=== PATIENT | male | born 1930 | race Caucasian/White ===

== ENCOUNTER 2017-01-07 19:08 | Inpatient (IN) | payer OTHER, BC ==
[~2017-01-07] VITALS: Ht 172.7 cm; Wt 89.1 kg
[~2017-01-07 19:08] MED LIST: ACET-1256 PO; ASPI81TA28 PO; BMX1 PO; CMD3 PO; LNX125 PO; LPR100 PO; MCRK20 PO; MULT1CHW42 PO; POLY335025 PO; PRLSR20 PO; SPR25 PO; SYN200 PO; SYN50 PO; TERA1CAP63 PO; TRAM-10 PO; VERA120T65 PO
[2017-01-07] MEDS ORDERED: SODIUM CHLORIDE 0.9% 1000ML 1,000 ML IV STA ×3 (19:32→21:02)
[2017-01-07] MEDS ORDERED: METOPROLOL TARTRATE 1 MG/ML VIAL IV STA ×3 (19:32→21:02)
--- NOTE | 2017-01-07 19:57 | DIAGNOSTIC IMAGING REPORT ---
PELVIS ONE VIEW HISTORY: Pelvic pain. fall COMPARISON: Left hip 06/17/2015. FINDINGS: The bones are osteopenic. No acute fractures identified within the pelvis or hips. There are bilateral total hip arthroplasties and multiple surgical clips within the pelvis. There is heterotopic ossification surrounding the bilateral hips. No change in the fractured left acetabular screws. There is progressive superior subluxation of the left acetabular cup which appears to be chronic. No dislocation of the femoral prosthesis. The sacrum appears intact. IMPRESSION: 1. No acute fractures within the pelvis or hips. 2. Bilateral total hip arthroplasties. Fracture of the left acetabular cup screws is again noted. There is mild progression of the superior subluxation of the left acetabular cup which is likely chronic. Electronically signed by: Andrew Bauer M.D. 01/07/2017 7:55 PM Dictated Date/Time: 01/07/2017 7:53 PM
--- NOTE | 2017-01-07 19:59 | DIAGNOSTIC IMAGING REPORT ---
CHEST ONE VIEW PORTABLE HISTORY: EVALUATE FOR TRAUMA/INJURY COMPARISON: Chest 08/12/2016. FINDINGS: The cardiac silhouette remains mildly enlarged. No pleural effusions. No pneumothorax. There is new hazy opacity within the right lower lung zone. The left lung remains clear. No acute rib fractures identified. IMPRESSION: 1. A new hazy opacity within the right lower lung zone. This is nonspecific but could be due to a developing pneumonia, possibly due to aspiration. One month chest x-ray follow-up is recommended to ensure resolution 2. Cardiomegaly, unchanged. 3. No pneumothorax. Electronically signed by: Andrew Bauer M.D. 01/07/2017 7:58 PM Dictated Date/Time: 01/07/2017 7:55 PM
[2017-01-07 20:05] LABS: HEMATOCRIT 36.5 % (42-52); MEAN CELL VOLUME 79.7 fL (80-100); MEAN CORPUSCULAR HEMOGLOBIN 25.3 pg (25-34); MEAN CORPUSCULAR HGB CONC 31.8 g/dl (32-36); MEAN PLATELET VOLUME 10.1 fL (7.4-10.4); PLATELET COUNT 128 K/uL (130-400); RED BLOOD COUNT 4.58 M/uL (4.7-6.1); WHITE BLOOD COUNT 13.26 K/uL (4.8-10.8)
[2017-01-07 20:19] LABS: PARTIAL THROMBOPLASTIN RATIO 1.5; PROTHROMBIN TIME (PATIENT) 22.6 SECONDS (9.0-12.0)
[2017-01-07 20:26] LABS: BUN/CREATININE RATIO 21.5 (10-20); CALCIUM 9.1 mg/dl (8.5-10.1); CREATININE 1.6 mg/dl (0.60-1.40); POTASSIUM 4.3 mmol/L (3.5-5.1)
[2017-01-07 20:41] LABS: BASO % 0.3 %; BASO ABS # 0.04 K/uL (0-0.2); COMPLETE YES; ECHINOCYTES 1+; EOS % 0.3 %; HYPOCHROMIA PRESENT; IG% 0.4 %; LYMPH % 11.8 %; LYMPH ABS # 1.57 K/uL (1.2-3.4); MONO % 3.5 %; NEUT % 83.7 %; OVALOCYTES 1+; POLYCHROMASIA 1+
--- NOTE | 2017-01-07 20:44 | DIAGNOSTIC IMAGING REPORT ---
HEAD CT NONCONTRAST CT DOSE: HISTORY: EVALUATE FOR TRAUMA/INJURY TECHNIQUE: Multiaxial CT images of the head were performed without the use of intravenous contrast. Automated exposure control was utilized for this study. Comparison: None. Findings: Mild mucosal thickening within the maxillary sinuses and ethmoid air cells. The mastoid air cells are clear. The calvarium and skull base are intact. The ventricles and sulci are within normal limits. There is no hematoma, midline shift, or acute infarct. There is a 5 mm slightly hyperdense nodule within the extra-axial space of the left frontal lobe on image 14. There is also a 6 mm nodular focus at the expected location of the left MCA bifurcation. Impression: 1. No definite acute intracranial abnormality. 2. A 5 mm slightly hyperdense nodular focus within the extra-axial space in the left frontal lobe. This favors a small meningioma. However, recommend 24-hour head CT follow-up in the setting of trauma to exclude the less likely possibility of a small contusion. 3. There is also a 6 mm nodular density in the expected location of the left MCA bifurcation. This could be due to volume averaging or an incidental aneurysm. Follow-up nonemergent brain MRA can be used for further evaluation. Electronically signed by: Andrew Bauer M.D. 01/07/2017 8:43 PM Dictated Date/Time: 01/07/2017 8:35 PM
[2017-01-07] MEDS ORDERED: PIPERACILLIN/TAZOBACTAM 4.5 GM/100ML D5W IV STA (20:55)
--- NOTE | 2017-01-07 20:58 | DIAGNOSTIC IMAGING REPORT ---
CERVICAL SPINE CT CT DOSE: 1048.17 mGy.cm HISTORY: EVALUATE FOR TRAUMA/INJURY TECHNIQUE: Multiaxial CT images of the cervical spine were performed and reformatted in the sagittal and coronal plane without the use of contrast. COMPARISON: None. FINDINGS: The right-sided pleural effusion. No pneumothorax. There is 4 mm of anterolisthesis of C4 and C5. Prevertebral soft tissues are intact. No acute fractures identified. Mild to moderate central canal narrowing at the C4-C5 level. Severe disc space narrowing at C4-C5, C5-C6. Moderate to space narrowing at C3-C4 and C6-C7. Fusion of the C7-T1 vertebral bodies. Bilateral C3-C4 diffuse facets. The C1-C2 interval is intact. Levoscoliosis. IMPRESSION: 1. No acute fractures within the cervical spine. 2. Approximately 4 mm of anterolisthesis of C4 and C5. This favors long-standing degenerative change. 3. Right pleural effusion. 4. Levoscoliosis. Electronically signed by: Andrew Bauer M.D. 01/07/2017 8:57 PM Dictated Date/Time: 01/07/2017 8:51 PM
[2017-01-07] MEDS ORDERED: LNX125 (21:02)
[2017-01-07] MEDS ORDERED: WARF3TAB6 PO ×2 (21:02)
[2017-01-07] MEDS ORDERED: METOPROLOL TARTRATE 100 MG TAB PO STA (21:13)
[2017-01-07 21:45] LABS: CKMB/CK RATIO 3.5 (0-3.0); MAGNESIUM 2.3 mg/dl (1.8-2.4); THYROID STIMULATING HORMONE 1.49 uIu/ml (0.300-4.500)
[2017-01-07] MEDS ORDERED: LNX125 PO (22:01)
[2017-01-07] MEDS ORDERED: ACETAMINOPHEN 325 MG TAB PO PRN (22:15)
[2017-01-07] MEDS ORDERED: NITROGLYCERIN 0.4 MG SL PER TAB CHARGE SL PRN (22:15)
[2017-01-07] MEDS ORDERED: ONDANSETRON INJ 2 MG/ML 2 ML VIAL IV PRN (22:15)
[2017-01-07] MEDS ORDERED: METOPROLOL TARTRATE 1 MG/ML VIAL IV PRN (22:30)
[2017-01-07] MEDS ORDERED: POLYETHYLENE (MIRALAX) 17 GM PACK PO PRN ×2 (22:30→22:45)
--- NOTE | 2017-01-07 22:39 | History and Physical ---
History & Physical Date & Time of Service: Jan 07, 2017 at 22:06 Chief Complaint: Fall/Hip Pain Primary Care Physician: Frantz Richard M.D. History of Present Illness Source: patient, clinic records, hospital records Patient seen and examined. 86 year old male with PMHx of Afib on Coumadin, CKD stage 3, HTN, Diastolic CHF, hypothyroidism and other problems listed below presents to the ED following a fall. Patient reports that he fell last night. He states that he has had some chronic dizziness that he was told was secondary to some of his medications and that he is very careful not to fall. He reports last night he fell backwards and hit his head. He denies LOC but states he was unable to get up and laid on the floor all night until friends came to check on him today. He reports otherwise he has been feeling fairly well. He states he has had a cough and congestion for many years which is unchanged. He states he occasionally has chest pain but nothing significant recently. He denies palpitations and states he can never feel when he goes into rapid Afib. He denies fevers, chills, URI symptoms, chest pain, SOB, nausea, vomiting, diarrhea , dysuria, calf pain and edema. He reports he has not taken his medications today because he couldn't get to them after the fall. He states he's not sure if he took them yesterday. In the ED patient was in Afib with RVR, CT head showed meningioma, WBC count was elevated at 13K, CXR showed possible RLL pneumonia. Patient received 15mg total of IV Lopressor and then 100mg po. He received IVFs, and Zosyn. He will be admitted for further workup and treatment. 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 Status: Resolved (9) Status post cancer Status: Resolved Surgical Problems: (1) H/O hernia repair Status: Chronic (2) H/O thyroidectomy Status: Chronic (3) History of esophagogastroduodenoscopy (EGD) Permanent Comment: 01/17/2015 - ring @ GE junction, tortuous esophagus, HH, multiple gastric polyps Status: Chronic (4) History of left hip replacement Status: Chronic (5) History of right hip replacement Status: Chronic (6) History of thyroidectomy Status: Resolved (7) S/p bilateral revision of total hip replacement Status: Chronic (8) S/P tonsillectomy Status: Chronic Family History No pertinent family history Social History Smoking Status: Never Smoker Alcohol Use: none Marital Status: Housing status: lives alone Occupational Status: retired Multi-Drug Resistant Organisms History of MDRO: No Allergies Coded Allergies: Oxycodone (Verified Adverse Reaction, Unknown, PROLONGED HICCUPS - RELIEVED WITH THORAZINE, 01/07/17) Home Medications Scheduled Aspirin (Aspirin Ec), 81 MG PO DAILY Bumetanide (Bumetanide), 1 MG PO QAM Digoxin (Digoxin), 125 MCG PO DAILY Levothyroxine Sodium (Synthroid), 200 MCG PO [id number] Levothyroxine Sodium (Synthroid), 225 MCG PO UD Metoprolol Tartrate (Metoprolol Tartrate), 100 MG PO BID Omeprazole (Prilosec), 20 MG PO BID Potassium Chloride (Klor-Con M20), 20 MEQ PO QAM Spironolactone (Spironolactone), 25 MG PO QAM Terazosin Hcl (Hytrin), 10 MG PO QAM Verapamil HCl (Verapamil HCl ER), 120 MG PO QAM Warfarin Sod (Jantoven), 3 MG PO MWF Warfarin Sod (Jantoven), 1.5 MG PO [id number] Scheduled PRN Acetaminophen (Tylenol), 500 MG PO TID PRN for Pain Polyethylene Glycol 3350 (Miralax), 1 TBS PO DAILY PRN for Constipation Tramadol (Ultram), 50 MG PO DAILY PRN for Pain Review of Systems See above for pertinent positives & negatives. A total of 10 systems reviewed and were otherwise negative. Physical Exam Vital Signs Date Time Temp Pulse Resp B/P Pulse Ox O2 Delivery O2 Flow Rate FiO2 01/07/17 21:45 112 141/70 01/07/17 21:29 117 01/07/17 21:15 133 24 123/84 95 Room Air 01/07/17 21:15 138 123/84 01/07/17 19:56 163 107/82 01/07/17 19:44 97 Room Air 01/07/17 19:44 97 Room Air 01/07/17 19:27 153 01/07/17 19:23 36.4 140 22 104/80 97 Room Air General Appearance: + pertinent finding (Very pleasant WD/WN 86 year old male lying in bed in NAD ) Head: normocephalic, atraumatic Eyes: PERRL, EOMI, sclerae normal ENT: pharynx normal, + pertinent finding (decreased hearing ) Neck: supple, no JVD, trachea midline Respiratory/Chest: chest non-tender, lungs clear, normal breath sounds, no respiratory distress, no accessory muscle use Cardiovascular: no gallop, no JVD, normal peripheral pulses, + systolic murmur , + irregularly irregular (rate in the 120s ) Abdomen/GI: normal bowel sounds, non tender, soft Back: normal inspection, no muscle spasm Extremities/Musculoskelatal: normal capillary refill, + calf tenderness, + pedal edema (trace), + pertinent finding (stasis dermatitis changes to BLLE ) Neurologic/Psych: alert, oriented x 3, + pertinent finding (no focal deficits noted ) Skin: + pertinent finding (stasis dermatitis noted to BLLE, skin warm to touch , mild erythema, some breaks in the skin ) Lymphatic: no adenopathy Diagnostics Laboratory Results Results Past 24 Hours Test 01/07/17 19:42 01/07/17 19:53 Range/Units White Blood Count 13.26 4.8-10.8 K/uL Red Blood Count 4.58 4.7-6.1 M/uL Hemoglobin 11.6 14.0-18.0 g/dL Hematocrit 36.5 42-52 % Mean Corpuscular Volume 79.7 80-100 fL Mean Corpuscular Hemoglobin 25.3 25-34 pg Mean Corpuscular Hemoglobin Concent 31.8 32-36 g/dl Platelet Count 128 130-400 K/uL Mean Platelet Volume 10.1 7.4-10.4 fL Neutrophils (%) (Auto) 83.7 % Lymphocytes (%) (Auto) 11.8 % Monocytes (%) (Auto) 3.5 % Eosinophils (%) (Auto) 0.3 % Basophils (%) (Auto) 0.3 % Neutrophils # (Auto) 11.10 1.4-6.5 K/uL Lymphocytes # (Auto) 1.57 1.2-3.4 K/uL Monocytes # (Auto) 0.46 0.11-0.59 K/uL Eosinophils # (Auto) 0.04 0-0.5 K/uL Basophils # (Auto) 0.04 0-0.2 K/uL RDW Standard Deviation 49.2 36.4-46.3 fL RDW Coefficient of Variation 17.0 11.5-14.5 % Immature Granulocyte % (Auto) 0.4 % Immature Granulocyte # (Auto) 0.05 0.00-0.02 K/uL Polychromasia 1+ Hypochromasia PRESENT Ovalocytes 1+ Echinocytes 1+ Prothrombin Time 22.6 9.0-12.0 SECONDS Prothromb Time International Ratio 2.0 0.9-1.1 Activated Partial Thromboplast Time 39.0 21.0-31.0 SECONDS Partial Thromboplastin Ratio 1.5 Sodium Level 139 136-145 mmol/L Potassium Level 4.3 3.5-5.1 mmol/L Chloride Level 106 98-107 mmol/L Carbon Dioxide Level 18 21-32 mmol/L Anion Gap 15.0 3-11 mmol/L Blood Urea Nitrogen 34 7-18 mg/dl Creatinine 1.60 0.60-1.40 mg/dl Est Creatinine Clear Calc Drug Dose 36.7 ml/min Estimated GFR () 44.9 Estimated GFR (Non- 38.7 BUN/Creatinine Ratio 21.5 10-20 Random Glucose 69 70-99 mg/dl Calcium Level 9.1 8.5-10.1 mg/dl Magnesium Level 2.3 1.8-2.4 mg/dl Total Bilirubin 2.1 0.2-1 mg/dl Direct Bilirubin 1.0 0-0.2 mg/dl Aspartate Amino Transf (AST/SGOT) 82 15-37 U/L Alanine Aminotransferase (ALT/SGPT) 126 12-78 U/L Alkaline Phosphatase 84 45-117 U/L Total Creatine Kinase 309 39-308 U/L Creatine Kinase MB 10.9 0.5-3.6 ng/ml Creatine Kinase MB Ratio 3.5 0-3.0 Troponin I 0.023 0-0.045 ng/ml Total Protein 6.5 6.4-8.2 gm/dl Albumin 3.3 3.4-5.0 gm/dl Thyroid Stimulating Hormone (TSH) 1.490 0.300-4.500 uIu/ml Digoxin Level 0.5 0.8-2.0 ng/ml Bedside Glucose 74 70-99 mg/dl Diagnostic Radiology C-SPINE CT Per radiologist read: IMPRESSION: 1. No acute fractures within the cervical spine. 2. Approximately 4 mm of anterolisthesis of C4 and C5. This favors long-standing degenerative change. 3. Right pleural effusion. 4. Levoscoliosis. CXR Per radiologist read: IMPRESSION: 1. A new hazy opacity within the right lower lung zone. This is nonspecific but could be due to a developing pneumonia, possibly due to aspiration. One month chest x-ray follow-up is recommended to ensure resolution 2. Cardiomegaly, unchanged. 3. No pneumothorax. CT HEAD Per radiologist read: Impression: 1. No definite acute intracranial abnormality. 2. A 5 mm slightly hyperdense nodular focus within the extra-axial space in the left frontal lobe. This favors a small meningioma. However, recommend 24-hour head CT follow-up in the setting of trauma to exclude the less likely possibility of a small contusion. 3. There is also a 6 mm nodular density in the expected location of the left MCA bifurcation. This could be due to volume averaging or an incidental aneurysm. Follow-up nonemergent brain MRA can be used for further evaluation. PELVIC XR Per radiologist read: IMPRESSION: 1. No acute fractures within the pelvis or hips. 2. Bilateral total hip arthroplasties. Fracture of the left acetabular cup screws is again noted. There is mild progression of the superior subluxation of the left acetabular cup which is likely chronic. EKG Afib with RVR 152 BPM, QTc 448 Impression Assessment and Plan 86 year old male presents to the ED complaining of fall last evening. Patient reports laying on floor all night until friends checked on him today. Found to be in Afib with RVR. ATRIAL FIBRILLATION WITH RVR -Admit to tele -likely secondary to acute illness (pneumonia) and missing home meds at least for 1 day -Lytes, TSH stable -Received 15mg IV Lopressor and 100mg po Lopressor in ED, rate improving -continue home Lopressor 100mg PO BID -IV Lopressor prn HR >150 -continue Coumadin, INR 2 -continue Digoxin, level low today -Serial Batsheva, EKGs -Echo pending -Cardiology consult for further recommendations input appreciated, follows with Dr. Zelaya as outpatient -AHA diet -Lipid panel pending -CBC, PRP, Mg, INR daily -monitor vital signs in tele COMMUNITY ACQUIRED PNEUMONIA -possible early sepsis, WBC count 13K, tachycardic in Afib but missed home BB, afebrile -CXR with possible RLL pneumonia -Was on Augmentin in 12/03 for bronchitis, CXR without consolidation at that time -Empirically started on Zosyn -Gentle IVF hydration -check Lactate, blood cultures -PCR flu pending -sputum culture pending -2 view CXR in AM FALL, AMBULATORY DYSFUNCTION -fall precautions -PT/OT evaluations -Nursing Home Admissions Director consult for discharge planning MENINGIOMA - per CT scan likely meningioma, short term followup for possible contusion in setting of trauma recommended -repeat CT head tomorrow MILD LFT ELEVATION -trend daily CALF PAIN/EDEMA -r/o DVT, has INR of 2 today, which is therapeutic -will check BLLE doppler US GIAN ON CKD STAGE 3 -crea 1.6 from baseline near 1.2 -gentle IVF hydration -hold diuretics -repeat PRP in AM HYPOTHYROIDISM -TSH normal -continue Synthroid DIASTOLIC CHF -appears slightly dry -hold Bumex for GIAN -gentle IVF hydration -update Echo HTN -stable -continue BB, Verapamil -monitor in tele 6mm NODULAR DENSITY -At left MCA bifurcation, incidental finding -nonemergent brain MRA recommended ANEMIA -hgb 11.6, usually around 12 -follow H&H THROMBOCYTOPENIA -128 -follow daily GERD -continue PPI BPH -continue Hytrin DVT PROPHYLAXIS: Coumadin CODE STATUS: FULL CODE per my discussion with the patient DISPO:In my clinical judgment this beneficiary meets acute admission criteria, established by CMS, that includes being hospitalized through two midnights. Discharge planning eval Patient seen in collaboration with Dr. Gaffney ATTENDING ADDENDUM Record reviewed. Patient interviewed and examined. I agree with the assessment and plan as above. Care coordinated with Cheryl Garcia PA-C. Please refer to her documentation for patient's history. Alfreda Gaffney, DO Hospitalist Level of Care Telemetry Resuscitation Status FULL RESUSCITATION VTE Prophylaxis VTE Risk Assessment Done? Y/N: Yes Risk Level: Moderate Given or contraindicated: Warfarin (Coumadin)
[2017-01-07] MEDS ORDERED: PIPERACILL/TAZOBAC CONSULT ACTIVE PRN (23:00)
[2017-01-08] VITALS (12 sets, daily range): BP systolic 77–114; BP diastolic 47–78; PULSE 62–122; TEMP 36.1–36.9; O2SAT 89–100; Ht 172.7 cm; Wt 89.1 kg
[2017-01-08 00:51] LABS: URINE APPEARANCE CLOUDY (CLEAR); URINE BILIRUBIN NEG (NEG); URINE COLOR DK YELLOW; URINE NITRITE NEG (NEG); UROBILINOGEN NEG (NEG)
[2017-01-08 00:53] LABS: MANUAL MICROSCOPIC REQUIRED? NO; REVIEW REQ? NO
[2017-01-08] MEDS: SODIUM CHLORIDE 0.9% 1000ML 1,000 ML IV SCH ×3 (01:00→11:30)
[2017-01-08] MEDS: PIPERACILL/TAZOBAC IV 3.375 GM in DEXTROSE 5% 100ML 100 ML IV SCH ×3 (01:59→18:35)
--- NOTE | 2017-01-08 02:09 | EMERGENCY ROOM VISIT NOTE ---
History Report prepared by Jarad: Constantine Bennett Under the Supervision of: Dr. Nasim Ha D.O. First contact with patient: 19:20 Chief Complaint: FALL Stated Complaint: FALL/HIP PAIN History of Present Illness The patient is an 86 year old male who presents to the Emergency Room following a fall that occurred this afternoon at 1500, 4.5 hours prior to arrival. He states that he fell straight backwards, and did not hit anything on the way down. He did hit the back of his head off of the floor. He currently has some head pain and slight pain in the back of his neck. The patient was not able to get himself off of the floor following the fall, and laid on the floor for several hours which caused some stiffness in his shoulder. He denies passing out at any point turning this episode. The patient notes that he has been experiencing some dizziness over the past couple days, and he was dizzy today before he fell. The patient is on Warfarin as a blood thinner. Pt denies change in vision, fevers, chest pain, shortness of breath, nausea, vomiting, diarrhea, and pain with urination. 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 A total of 10 systems reviewed and were otherwise negative. 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 (12) Status post cancer Surgical Problems: (1) H/O hernia repair (2) H/O thyroidectomy (3) History of esophagogastroduodenoscopy (EGD) (4) History of left hip replacement (5) History of right hip replacement (6) History of thyroidectomy (7) S/p bilateral revision of total hip replacement (8) S/P tonsillectomy Family History No pertinent family history Social History Smoking Status: Never Smoker Marital Status: Housing Status: lives alone Occupation Status: retired Current/Historical Medications Scheduled Aspirin (Aspirin Ec), 81 MG PO DAILY Bumetanide (Bumetanide), 1 MG PO QAM Digoxin (Digoxin), 125 MCG PO DAILY Levothyroxine Sodium (Synthroid), 200 MCG PO [id number] Levothyroxine Sodium (Synthroid), 225 MCG PO UD Metoprolol Tartrate (Metoprolol Tartrate), 100 MG PO BID Omeprazole (Prilosec), 20 MG PO BID Potassium Chloride (Klor-Con M20), 20 MEQ PO QAM Spironolactone (Spironolactone), 25 MG PO QAM Terazosin Hcl (Hytrin), 10 MG PO QAM Verapamil HCl (Verapamil HCl ER), 120 MG PO QAM Warfarin Sod (Jantoven), 3 MG PO MWF Warfarin Sod (Jantoven), 1.5 MG PO [id number] Scheduled PRN Acetaminophen (Tylenol), 500 MG PO TID PRN for Pain Polyethylene Glycol 3350 (Miralax), 1 TBS PO DAILY PRN for Constipation Tramadol (Ultram), 50 MG PO DAILY PRN for Pain Allergies Coded Allergies: Oxycodone (Verified Adverse Reaction, Unknown, PROLONGED HICCUPS - RELIEVED WITH THORAZINE, 01/07/17) Physical Exam Vital Signs Date Time Temp Pulse Resp B/P Pulse Ox O2 Delivery O2 Flow Rate FiO2 01/07/17 21:45 112 141/70 01/07/17 21:29 117 01/07/17 21:15 133 24 123/84 95 Room Air 01/07/17 21:15 138 123/84 01/07/17 19:56 163 107/82 01/07/17 19:44 97 Room Air 01/07/17 19:44 97 Room Air 01/07/17 19:27 153 01/07/17 19:23 36.4 140 22 104/80 97 Room Air Physical Exam GENERAL: Disheveled and uncomfortable appearing, moderate distress, non-toxic HEAD: normal cephalic, atraumatic EYE EXAM: normal conjunctiva OROPHARYNX: no exudate, no erythema, lips, buccal mucosa, and tongue normal and mucous membranes are moist EARS: TMs clear b/l NECK: Mild midline cervical tenderness. supple, no nuchal rigidity, no adenopathy, non-tender CHEST: stable to compression anteriorly and posteriorly LUNGS: clear to auscultation. Normal chest wall mechanics HEART: Tachycardiac and irregularly irregular. no murmurs, S1 normal and S2 normal ABDOMEN: abdomen soft, non-tender, normo-active bowel sounds, no masses, no rebound or guarding. PELVIS: stable to compression anteriorly and posteriorly BACK: Back is symmetrical on inspection and there is no deformity, no midline tenderness, no CVA tenderness. UPPER EXTREMITIES: full active and passive range of motion of all joints without tenderness to palpation LOWER EXTREMITIES: Diffuse pitting edema, limited range of motion of all joints without tenderness. Bilateral erythema with breaking of the skin. NEURO EXAM: Normal sensorium, cranial nerves II-XII grossly intact, normal speech, no gross weakness of arms, no gross weakness of legs. GCS: 15. Medical Decision & Procedures ER Provider Diagnostic Interpretation: Xray results per the radiologist and my interpretation. Other results have been interpreted by the radiologist and reviewed by me. CERVICAL SPINE CT CT DOSE: 1048.17 mGy.cm HISTORY: EVALUATE FOR TRAUMA/INJURY TECHNIQUE: Multiaxial CT images of the cervical spine were performed and reformatted in the sagittal and coronal plane without the use of contrast. COMPARISON: None. FINDINGS: The right-sided pleural effusion. No pneumothorax. There is 4 mm of anterolisthesis of C4 and C5. Prevertebral soft tissues are intact. No acute fractures identified. Mild to moderate central canal narrowing at the C4-C5 level. Severe disc space narrowing at C4-C5, C5-C6. Moderate to space narrowing at C3-C4 and C6-C7. Fusion of the C7-T1 vertebral bodies. Bilateral C3-C4 diffuse facets. The C1-C2 interval is intact. Levoscoliosis. IMPRESSION: 1. No acute fractures within the cervical spine. 2. Approximately 4 mm of anterolisthesis of C4 and C5. This favors long-standing degenerative change. 3. Right pleural effusion. 4. Levoscoliosis. Electronically signed by: Andrew Bauer M.D. 01/07/2017 8:57 PM Dictated Date/Time: 01/07/2017 8:51 PM CHEST ONE VIEW PORTABLE HISTORY: EVALUATE FOR TRAUMA/INJURY COMPARISON: Chest 08/12/2016. FINDINGS: The cardiac silhouette remains mildly enlarged. No pleural effusions. No pneumothorax. There is new hazy opacity within the right lower lung zone. The left lung remains clear. No acute rib fractures identified. IMPRESSION: 1. A new hazy opacity within the right lower lung zone. This is nonspecific but could be due to a developing pneumonia, possibly due to aspiration. One month chest x-ray follow-up is recommended to ensure resolution 2. Cardiomegaly, unchanged. 3. No pneumothorax. Electronically signed by: Andrew Bauer M.D. 01/07/2017 7:58 PM Dictated Date/Time: 01/07/2017 7:[address]AST CT DOSE: HISTORY: EVALUATE FOR TRAUMA/INJURY TECHNIQUE: Multiaxial CT images of the head were performed without the use of intravenous contrast. Automated exposure control was utilized for this study. Comparison: None. Findings: Mild mucosal thickening within the maxillary sinuses and ethmoid air cells. The mastoid air cells are clear. The calvarium and skull base are intact. The ventricles and sulci are within normal limits. There is no hematoma, midline shift, or acute infarct. There is a 5 mm slightly hyperdense nodule within the extra-axial space of the left frontal lobe on image 14. There is also a 6 mm nodular focus at the expected location of the left MCA bifurcation. Impression: 1. No definite acute intracranial abnormality. 2. A 5 mm slightly hyperdense nodular focus within the extra-axial space in the left frontal lobe. This favors a small meningioma. However, recommend 24-hour head CT follow-up in the setting of trauma to exclude the less likely possibility of a small contusion. 3. There is also a 6 mm nodular density in the expected location of the left MCA bifurcation. This could be due to volume averaging or an incidental aneurysm. Follow-up nonemergent brain MRA can be used for further evaluation. Electronically signed by: Andrew Bauer M.D. 01/07/2017 8:43 PM Dictated Date/Time: 01/07/2017 8:35 PM PELVIS ONE VIEW HISTORY: Pelvic pain. fall COMPARISON: Left hip 06/17/2015. FINDINGS: The bones are osteopenic. No acute fractures identified within the pelvis or hips. There are bilateral total hip arthroplasties and multiple surgical clips within the pelvis. There is heterotopic ossification surrounding the bilateral hips. No change in the fractured left acetabular screws. There is progressive superior subluxation of the left acetabular cup which appears to be chronic. No dislocation of the femoral prosthesis. The sacrum appears intact. IMPRESSION: 1. No acute fractures within the pelvis or hips. 2. Bilateral total hip arthroplasties. Fracture of the left acetabular cup screws is again noted. There is mild progression of the superior subluxation of the left acetabular cup which is likely chronic. Electronically signed by: Andrew Bauer M.D. 01/07/2017 7:55 PM Dictated Date/Time: 01/07/2017 7:53 PM Laboratory Results 01/07/17 19:42 Red Blood Count 4.58, Mean Corpuscular Volume 79.7, Mean Corpuscular Hemoglobin 25.3, Mean Corpuscular Hemoglobin Concent 31.8, Mean Platelet Volume 10.1, Neutrophils (%) (Auto) 83.7, Lymphocytes (%) (Auto) 11.8, Monocytes (%) (Auto) 3.5, Eosinophils (%) (Auto) 0.3, Basophils (%) (Auto) 0.3, Neutrophils # (Auto) 11.10, Lymphocytes # (Auto) 1.57, Monocytes # (Auto) 0.46, Eosinophils # (Auto) 0.04, Basophils # (Auto) 0.04 01/07/17 19:42 Test 01/07/17 19:42 01/07/17 19:53 White Blood Count 13.26 K/uL (4.8-10.8) Red Blood Count 4.58 M/uL (4.7-6.1) Hemoglobin 11.6 g/dL (14.0-18.0) Hematocrit 36.5 % (42-52) Mean Corpuscular Volume 79.7 fL (80-100) Mean Corpuscular Hemoglobin 25.3 pg (25-34) Mean Corpuscular Hemoglobin Concent 31.8 g/dl (32-36) Platelet Count 128 K/uL (130-400) Mean Platelet Volume 10.1 fL (7.4-10.4) Neutrophils (%) (Auto) 83.7 % Lymphocytes (%) (Auto) 11.8 % Monocytes (%) (Auto) 3.5 % Eosinophils (%) (Auto) 0.3 % Basophils (%) (Auto) 0.3 % Neutrophils # (Auto) 11.10 K/uL (1.4-6.5) Lymphocytes # (Auto) 1.57 K/uL (1.2-3.4) Monocytes # (Auto) 0.46 K/uL (0.11-0.59) Eosinophils # (Auto) 0.04 K/uL (0-0.5) Basophils # (Auto) 0.04 K/uL (0-0.2) RDW Standard Deviation 49.2 fL (36.4-46.3) RDW Coefficient of Variation 17.0 % (11.5-14.5) Immature Granulocyte % (Auto) 0.4 % Immature Granulocyte # (Auto) 0.05 K/uL (0.00-0.02) Polychromasia 1+ Hypochromasia PRESENT Ovalocytes 1+ Echinocytes 1+ Prothrombin Time 22.6 SECONDS (9.0-12.0) Prothromb Time International Ratio 2.0 (0.9-1.1) Activated Partial Thromboplast Time 39.0 SECONDS (21.0-31.0) Partial Thromboplastin Ratio 1.5 Anion Gap 15.0 mmol/L (3-11) Est Creatinine Clear Calc Drug Dose 36.7 ml/min Estimated GFR () 44.9 Estimated GFR (Non- 38.7 BUN/Creatinine Ratio 21.5 (10-20) Calcium Level 9.1 mg/dl (8.5-10.1) Magnesium Level 2.3 mg/dl (1.8-2.4) Total Bilirubin 2.1 mg/dl (0.2-1) Direct Bilirubin 1.0 mg/dl (0-0.2) Aspartate Amino Transf (AST/SGOT) 82 U/L (15-37) Alanine Aminotransferase (ALT/SGPT) 126 U/L (12-78) Alkaline Phosphatase 84 U/L (45-117) Total Protein 6.5 gm/dl (6.4-8.2) Albumin 3.3 gm/dl (3.4-5.0) Thyroid Stimulating Hormone (TSH) 1.490 uIu/ml (0.300-4.500) Digoxin Level 0.5 ng/ml (0.8-2.0) Bedside Glucose 74 mg/dl (70-99) Laboratory results per my review. Medications Administered Medications (Trade) Dose Ordered Sig/Lorie Route Start Time Stop Time Status Last Admin Dose Admin Sodium Chloride 1,000 ml @ 999 mls/hr Q1H1M STAT IV 01/07/17 19:32 01/07/17 20:32 DC 01/07/17 19:57 999 MLS/HR Sodium Chloride (Nss 1000ml) 1,000 ml @ 999 mls/hr Q1H1M STAT IV 01/07/17 19:32 01/07/17 20:32 DC 01/07/17 21:15 999 MLS/HR Metoprolol Tartrate (Lopressor Iv) 5 mg NOW STAT IV 01/07/17 19:32 01/07/17 19:35 DC 01/07/17 19:56 5 MG Metoprolol Tartrate (Lopressor Iv) 5 mg NOW STAT IV 01/07/17 20:08 01/07/17 20:09 DC 01/07/17 21:15 5 MG Piperacillin Sod/ Tazobactam Sod 4.5 gm 4.5 gm NOW STAT IV 01/07/17 20:55 01/07/17 20:56 DC 01/07/17 21:16 4.5 GM Sodium Chloride (Nss 1000ml) 1,000 ml @ 999 mls/hr Q1H1M STAT IV 01/07/17 21:02 01/07/17 22:02 DC 01/07/17 22:37 999 MLS/HR Metoprolol Tartrate (Lopressor Iv) 5 mg NOW STAT IV 01/07/17 21:02 01/07/17 21:03 DC 01/07/17 21:45 5 MG Metoprolol Tartrate (Lopressor Tab) 100 mg NOW STAT PO 01/07/17 21:13 01/07/17 21:15 DC 01/07/17 22:35 100 MG ECG Indication: weakness, other (Fall) Rate (beats per minute): 152 Rhythm: atrial fibrillation (With RVR) Findings: RBBB, other (Normal) Comparison ECG Date: 08/12/2015 Change: RVR is new ED Course ED COURSE: Vital signs were reviewed and showed tachycardiac vitals The patients medical record was reviewed The above diagnostic studies were performed and reviewed. ED treatments and interventions as stated above. 4: The patient was evaluated in room C4. A complete history and physical examination was performed. 1931: Ordered Metoprolol 5 mg IV, Sodium Chloride 1000 mL @ 999 mL/hr IV, Sodium Chloride 1000 mL @ 999 mL/hr IV. 2005: I checked on the patient at this time, his heart rate is in the 140s. He will get another dosage of Lopressor. 2007: Ordered Metoprolol 5 mg IV. 2054: Ordered Piperacillin 4.5 gm IV. 2101: Ordered Metoprolol 5 mg IV, Sodium Chloride 1000 mL @ 999 mL/hr IV. 2109: I discussed the case with Cheryl Garcia at this time, she will evaluate the patient for further treatment. 2113: Ordered Metoprolol 100 mg PO. 2119: Upon reevaluation, the patient is resting comfortably.I discussed my findings with the patient and she understands and agrees with the treatment plan. Based on the patients age, coexisting illnesses, exam and lab findings the decision to treat as an inpatient was made. The patient remained stable while under my care. The patient will be evaluated for further management. Medical Decision Differential diagnoses include major intracranial, cervical, spinal, thoracic, abdominal, pelvic and neurologic injury. Fracture, contusion, sprain, strain, laceration, abrasions included as well. Patient is an 86-year-old male who presents the ER via EMS for a fall. Upon presentation he is found to be tachycardic with A. fib and his heart rate 160s. Systolic blood pressures tended down to low 100s/90s. He was given a bolus of normal saline and given 3 doses of Lopressor. He is also given oral metoprolol as well. CBC was remarkable for leukocytosis of 13,000. BMP shows a CO2 of 18. Bilirubin was elevated. Troponin was negative. Chest x-ray supports a right lower lobe pneumonia. He is covered with Zosyn. He was given a bolus normal saline as well. INR was therapeutic. UA was clean. CT head and cervical spine show a 5 mm hyperdense left frontal lobe nodule favor a meningioma. This will need to be followed up to rule out a bleed which is unlikely per radiology. Patient's blood pressure and heart rate was titrated/ monitored closely. Heart rate trended down to low 100s. Patient was admitted to internal medicine following multiple doses of Lopressor. Consults Time Called: 2099 Consulting Physician: Cheryl Garcia PA-C Returned Call: [phone] I discussed the case with Cheryl Garcia at this time, she will evaluate the patient for further treatment. Impression Primary Impression: Atrial fibrillation with RVR Additional Impressions: Fall Pneumonia Critical Care I have personally spent 80 minutes of critical care time in the direct management of this patient. This includes bedside care, interpretation of diagnostic studies, and testing, discussion with consultants, patient, and family members, and other required patient management activities. This 80 minutes is in excess of all separately billable procedures. Scribe Attestation The scribe's documentation has been prepared under my direction and personally reviewed by me in its entirety. I confirm that the note above accurately reflects all work, treatment, procedures, and medical decision making performed by me. Departure Information Dispostion Being Evaluated By Hospitalist Referrals No Doctor, Assigned (PCP) Patient Instructions [facility] Problem Qualifiers Additional Impressions: Fall Encounter type: initial encounter Qualified Codes: W19.XXXA - Unspecified fall, initial encounter Pneumonia Pneumonia type: due to unspecified organism Laterality: unspecified laterality Lung location: unspecified part of lung Qualified Codes: J18.9 - Pneumonia, unspecified organism
[2017-01-08 02:24] LABS: CKMB/CK RATIO 3.2 (0-3.0)
[2017-01-08 03:52] LABS: INFLUENZA A PCR Neg for Influ A (NEG); INFLUENZA B PCR Neg for Influ B (NEG)
[2017-01-08 04:54] LABS: HEMATOCRIT 35.8 % (42-52); MEAN CELL VOLUME 81.7 fL (80-100); MEAN CORPUSCULAR HEMOGLOBIN 25.6 pg (25-34); MEAN CORPUSCULAR HGB CONC 31.3 g/dl (32-36); MEAN PLATELET VOLUME 10.2 fL (7.4-10.4); PLATELET COUNT 117 K/uL (130-400); RED BLOOD COUNT 4.38 M/uL (4.7-6.1); WHITE BLOOD COUNT 11.92 K/uL (4.8-10.8)
[2017-01-08 05:11] LABS: BUN/CREATININE RATIO 22.4 (10-20); CALCIUM 8.3 mg/dl (8.5-10.1); CREATININE 1.5 mg/dl (0.60-1.40); MAGNESIUM 2.3 mg/dl (1.8-2.4); POTASSIUM 4.3 mmol/L (3.5-5.1)
[2017-01-08 05:14] LABS: INR 2.5 (0.9-1.1); PARTIAL THROMBOPLASTIN RATIO 1.5; PROTHROMBIN TIME (PATIENT) 27.3 SECONDS (9.0-12.0)
[2017-01-08 05:20] LABS: ALB/GLOB RATIO 1.2 (0.9-2); CHOLESTEROL/HDL RATIO 3.6
[2017-01-08] MEDS: LEVOTHYROXINE 200 MCG TAB PO SCH (05:41)
--- NOTE | 2017-01-08 06:34 | DIAGNOSTIC IMAGING REPORT ---
ULTRASOUND VENOUS DOPPLER LWR EXT BILA CLINICAL HISTORY: Leg pain and edema COMPARISON STUDY: 08/12/2016 FINDINGS: Real-time and color flow Doppler imaging were performed. Flow was seen within the femoral, popliteal and calf veins with no intraluminal thrombus demonstrated. The saphenous vein is patent. IMPRESSION: No evidence of lower extremity DVT. Electronically signed by: Lj Hicks M.D. 01/08/2017 6:33 AM Dictated Date/Time: 01/08/2017 6:32 AM
[2017-01-08] MEDS: POTASSIUM CHLORIDE 20 MEQ TABCR PO SCH (09:00)
[2017-01-08] MEDS ORDERED: DIGOXIN 0.125 MG TAB PO SCH (09:00)
[2017-01-08] MEDS: VERAPAMIL HCL 120 MG TABCR PO SCH (09:00)
[2017-01-08] MEDS: ASPIRIN 81 MG ECTAB PO SCH (09:00)
[2017-01-08] MEDS ORDERED: METOPROLOL TARTRATE 100 MG TAB PO SCH (09:00)
[2017-01-08] MEDS: PANTOprazole SOD 40 MG TAB PO SCH ×2 (09:00→22:01)
[2017-01-08] MEDS: TRAMADOL HCL 50 MG TAB PO PRN (09:19)
--- NOTE | 2017-01-08 09:40 | Progress Note ---
Progress Note Post Crystalloid Evaluation Date: Jan 07, 2017 Time: 23:37 Subjective Asymptomatic patient with WBC count was elevated at 13K, CXR showed possible RLL pneumonia. Physical Exam Vital Signs: Vital Signs Date Time Temp Pulse Resp B/P Pulse Ox O2 Delivery O2 Flow Rate FiO2 01/07/17 23:10 100 18 95/63 98 Room Air 01/07/17 19:23 36.4 Lungs: chest non-tender, lungs clear, normal breath sounds, no respiratory distress, no accessory muscle use Heart: regular rate, rhythm, no edema, no gallop, no JVD, no murmur, normal peripheral pulses Peripheral Pulse: Normal Assessment & Plan COMMUNITY ACQUIRED PNEUMONIA -possible early sepsis, WBC count 13K, tachycardic in Afib but missed home BB, afebrile -CXR with possible RLL pneumonia -Was on Augmentin in 12/03 for bronchitis, CXR without consolidation at that time -Empirically started on Zosyn -Gentle IVF hydration -check Lactate, blood cultures -PCR flu pending -sputum culture pending -2 view CXR in AM Alfreda Gaffney DO Hospitalist
--- NOTE | 2017-01-08 11:57 | Cardiology Consultation ---
Cardiology Consultation Date of Consultation: Jan 08, 2017 Requesting Physician: Yamileth Attending Philosophy Faculty Member: Garcia (Jose Ramon Mcdonald PA-C) History of Present Illness Mr. Qiu presented to the [facility] after a fall. Cardiology consultation was requested secondary to atrial fibrillation with a rapid ventricular response. Mr. Qiu notes developing dizziness with positional change, falling backwards and striking his head. He denies loss of consciousness. He apparently laid on the floor overnight, missing two rounds of medications and two meals. In the ER he was observed to have a rapid ventricular response to the chronic atrial fibrillation. He was given a total of 15 mg IV lopressor as well as 100 mg of oral lopressor with improvement in the rapid ventricular response to the chronic atrial fibrillation. He describes a cough and chest congestion productive of clear phlegm, without fevers or rigors. Workup in the ER notable for leukocytosis with x-ray demonstrating a possible right lower lower pneumonia. He has been started on IVF's and IV antibiotics. No new or worsening chest pain. No tachypalitations. No orthopnea, PND, increased edema, or abrupt weight changes. (Jose Ramon Mcdonald PA-C) History Past Medical/Surgical History: Chronic atrial fibrillation Chronic Coumadin anticoagulation Diastolic heart failure secondary to severe valvular heart disease Severe mitral regurgitation, partially flail component of the posterior mitral valve leaflet Lower extremity peripheral edema likely secondary to above as well as terazosin and verapamil therapies. Preserved LV systolic function LVEF 55-60% Thyroid malignancy, postsurgical hypothyroidism Prostate cancer status post prostatectomy Hypertension Dyslipidemia Stage III chronic kidney disease Bilateral hip replacements with bilateral revisions Hernia repair Tonsillectomy Family History: Not notable for coronary disease. Father post surgery, ? malignant hyperthermia. Social History: Nonsmoker. No alcohol. . Lives alone. 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 Chronic hip pain. Nocturia. Constipation. Complete review of systems is as stated above, negative, or noncontributory. (Jose Ramon Mcdonald PA-C) Allergies Coded Allergies: Oxycodone (Verified Adverse Reaction, Unknown, PROLONGED HICCUPS - RELIEVED WITH THORAZINE, 01/07/17) Medications Reported Home Medications Medications Dose Route/Sig Max Daily Dose Days Date Category Dose Instructions Digoxin 0.125 Mg Tab 125 Mcg PO DAILY 01/07/17 Reported Jantoven (Warfarin Sodium) 3 Mg Tab 1.5 Mg PO [id number] 01/07/17 Reported FRIDAY,FRIDAY,FRIDAY,FRIDAY Jantoven (Warfarin Sodium) 3 Mg Tab 3 Mg PO MWF 01/07/17 Reported Synthroid (Levothyroxine Sodium) 50 Mcg Tab 225 Mcg PO UD 30 08/19/16 Rx take 225mcg every [id number] Synthroid (Levothyroxine Sodium) 200 Mcg Tab 200 Mcg PO MOWEFR@0600 30 08/19/16 Rx Klor-Con M20 (Potassium Chloride) 20 Meq Tabcr 20 Meq PO QAM 30 08/19/16 Rx Bumetanide 1 Mg Tab 1 Mg PO QAM 30 08/19/16 Rx Verapamil HCl ER (Verapamil HCl) 120 Mg Tabcr 120 Mg PO QAM 30 08/19/16 Rx Spironolactone 25 Mg Tab 25 Mg PO QAM 30 08/19/16 Rx Metoprolol Tartrate 100 Mg Tab 100 Mg PO BID 30 08/19/16 Rx Ultram (Tramadol HCl) 50 Mg Tab 50 Mg PO DAILY PRN 08/19/16 Rx Miralax (Polyethylene Glycol 3350) 1 Pow Pow 1 Tbs PO DAILY PRN 01/16/15 Reported dissolve one heaping tablespoon in 8 ounces of water or juice - one dose per day as needed for severe consipation Aspirin Ec (Aspirin) 81 Mg Tab 81 Mg PO DAILY 01/16/15 Reported Prilosec (Omeprazole) 20 Mg Capcr 20 Mg PO BID 11/24/14 Reported Tylenol (Acetaminophen) 500 Mg Tab 500 Mg PO TID PRN 10/17/14 Reported Hytrin (Terazosin HCl) 10 Mg Cap 10 Mg PO QAM 01/17/12 Reported (Jose Ramon Mcdonald PA-C) Physical Exam Vital Signs (Last 8hrs): Last 8 Hrs Date Time Temp Pulse Resp B/P Pulse Ox O2 Delivery O2 Flow Rate FiO2 01/08/17 08:00 36.8 110 18 114/78 96 Room Air 01/08/17 07:34 125 General: A&Ox3. No conversation dyspnea noted. HEENT: Normocephalic. Atraumatic. PER. Conjunctiva pink, sclera clear. Neck: 3 cm of JVD at 30 degrees. No carotid bruits appreciated Heart: Irregularly irregular ~110 bpm. Grade II/ systolic murmur heart throughout the precordium though less prominent at the apex. No rub. PMI is displaced. Lungs: Diminished but clear. Abdomen: +BS. Soft. Nontender. No masses. Extremities: Diffuse excoriations to the lam. Mild erythema. No overt cellulitis. Chronic stasis changes. Minimal edema. No clubbing. No cyanosis. Limited neurological examination is without focal deficits. Distal pulses were not appreciated Neuro: No focal deficits. Psychiatric: Normal affect. (Jose Ramon Mcdonald, LEIA) Data Last 24 Hours Test 01/07/17 19:42 01/07/17 19:53 01/07/17 22:40 01/07/17 23:45 White Blood Count 13.26 K/uL Red Blood Count 4.58 M/uL Hemoglobin 11.6 g/dL Hematocrit 36.5 % Mean Corpuscular Volume 79.7 fL Mean Corpuscular Hemoglobin 25.3 pg Mean Corpuscular Hemoglobin Concent 31.8 g/dl Platelet Count 128 K/uL Mean Platelet Volume 10.1 fL Neutrophils (%) (Auto) 83.7 % Lymphocytes (%) (Auto) 11.8 % Monocytes (%) (Auto) 3.5 % Eosinophils (%) (Auto) 0.3 % Basophils (%) (Auto) 0.3 % Neutrophils # (Auto) 11.10 K/uL Lymphocytes # (Auto) 1.57 K/uL Monocytes # (Auto) 0.46 K/uL Eosinophils # (Auto) 0.04 K/uL Basophils # (Auto) 0.04 K/uL RDW Standard Deviation 49.2 fL RDW Coefficient of Variation 17.0 % Immature Granulocyte % (Auto) 0.4 % Immature Granulocyte # (Auto) 0.05 K/uL Polychromasia 1+ Hypochromasia PRESENT Ovalocytes 1+ Echinocytes 1+ Prothrombin Time 22.6 SECONDS Prothromb Time International Ratio 2.0 Activated Partial Thromboplast Time 39.0 SECONDS Partial Thromboplastin Ratio 1.5 Sodium Level 139 mmol/L Potassium Level 4.3 mmol/L Chloride Level 106 mmol/L Carbon Dioxide Level 18 mmol/L Anion Gap 15.0 mmol/L Blood Urea Nitrogen 34 mg/dl Creatinine 1.60 mg/dl Est Creatinine Clear Calc Drug Dose 36.7 ml/min Estimated GFR () 44.9 Estimated GFR (Non- 38.7 BUN/Creatinine Ratio 21.5 Random Glucose 69 mg/dl Calcium Level 9.1 mg/dl Magnesium Level 2.3 mg/dl Total Bilirubin 2.1 mg/dl Direct Bilirubin 1.0 mg/dl Aspartate Amino Transf (AST/SGOT) 82 U/L Alanine Aminotransferase (ALT/SGPT) 126 U/L Alkaline Phosphatase 84 U/L Total Creatine Kinase 309 U/L Creatine Kinase MB 10.9 ng/ml Creatine Kinase MB Ratio 3.5 Troponin I 0.023 ng/ml Total Protein 6.5 gm/dl Albumin 3.3 gm/dl Thyroid Stimulating Hormone (TSH) 1.490 uIu/ml Digoxin Level 0.5 ng/ml Bedside Glucose 74 mg/dl Lactic Acid Level 2.2 mmol/L Urine Color DK YELLOW Urine Appearance CLOUDY Urine pH 5.0 Urine Specific [place] 1.020 Urine Protein 1+ Urine Glucose (UA) NEG Urine Ketones 1+ Urine Occult Blood NEG Urine Nitrite NEG Urine Bilirubin NEG Urine Urobilinogen NEG Urine Leukocyte Esterase NEG Urine WBC (Auto) 1-5 /hpf Urine RBC (Auto) 0-4 /hpf Urine Hyaline Casts (Auto) 1-5 /lpf Urine Epithelial Cells (Auto) 5-10 /lpf Urine Bacteria (Auto) NEG Influenza Type A (RT-PCR) Neg for Influ A Influenza Type B (RT-PCR) Neg for Influ B Test 01/08/17 01:54 01/08/17 04:40 01/08/17 08:05 01/08/17 09:50 Total Creatine Kinase 302 U/L U/L 291 U/L Creatine Kinase MB 9.7 ng/ml 9.3 ng/ml Creatine Kinase MB Ratio 3.2 Troponin I 0.036 ng/ml 0.033 ng/ml White Blood Count 11.92 K/uL Red Blood Count 4.38 M/uL Hemoglobin 11.2 g/dL Hematocrit 35.8 % Mean Corpuscular Volume 81.7 fL Mean Corpuscular Hemoglobin 25.6 pg Mean Corpuscular Hemoglobin Concent 31.3 g/dl RDW Standard Deviation 50.8 fL RDW Coefficient of Variation 17.2 % Platelet Count 117 K/uL Mean Platelet Volume 10.2 fL Prothrombin Time 27.3 SECONDS Prothromb Time International Ratio 2.5 Activated Partial Thromboplast Time 39.8 SECONDS Partial Thromboplastin Ratio 1.5 Sodium Level 141 mmol/L Potassium Level 4.3 mmol/L Chloride Level 111 mmol/L Carbon Dioxide Level 17 mmol/L Anion Gap 13.0 mmol/L Blood Urea Nitrogen 34 mg/dl Creatinine 1.50 mg/dl Est Creatinine Clear Calc Drug Dose 39.2 ml/min Estimated GFR () 48.5 Estimated GFR (Non- 41.9 BUN/Creatinine Ratio 22.4 Random Glucose 69 mg/dl Lactic Acid Level 2.3 mmol/L Calcium Level 8.3 mg/dl Magnesium Level 2.3 mg/dl Total Bilirubin 2.1 mg/dl Aspartate Amino Transf (AST/SGOT) 100 U/L Alanine Aminotransferase (ALT/SGPT) 130 U/L Alkaline Phosphatase 76 U/L Total Protein 5.6 gm/dl Albumin 3.0 gm/dl Globulin 2.6 gm/dl Albumin/Globulin Ratio 1.2 Triglycerides Level 57 mg/dl Cholesterol Level 72 mg/dl HDL Cholesterol 20 mg/dl LDL Cholesterol, Calculated 41 mg/dl VLDL Cholesterol, Calculated 11 mg/dl Cholesterol/HDL Ratio 3.6 Admission CXR without heart failure Venous duplex negative for DVT Telemetry: Atrial fibrillation with a rapid ventricular response. No periods of sinus. No bradycardia or pauses. Admission EKG with atrial fibrillation at 152 bpm with a right bundle branch block. EKG this AM reveals atrial fibrillation at 129 bpm with the RBBB and diffuse T wave abnormality. (Jose Ramon Mcdonald PA-C) Assessment & Plan Admission following a fall that appears, by history, to be secondary to symptomatic orthostatic hypotension Rapid ventricular response to the chronic atrial fibrillation felt to be secondary to missing medications. Possible community acquired pneumonia Compensated diastolic heart failure secondary to diastolic dysfunction, severe valvular heart disease Mild pulmonary hypertension Preserved LVEF RECOMMENDATIONS/PLAN: Resume outpatient AV aurea blocking regimen including Lopressor 100 mg twice a day, verapamil 120 mg/day, and digoxin 125 mcg/day Continue chronic Coumadin anticoagulation Decrease terazosin from 5 mg/day to 2 mg/day in an attempt to aid orthostasis and fluid retention (fluid retention is multifactorial - MR, venous stasis, verapamil, terazosin, etc) Further recommendations pending TTE interpretation, evaluation by Dr. Zelaya, and his ongoing hospitalization. (Jose Ramon Mcdonald PA-C) CARDIOLOGY ATTENDING ADDENDUM: The patient was seen and personally examined. Agree with Jose Ramon Mcdonald PA-C's findings and plans as documented above with additions as noted below. Subjective: Patient reassessed by the undersigned on 01/08/17 at 5:43 PM. He remains in atrial fibrillation which is a chronic rhythm for him. His trachea rates are much improved down to the 70 beat per minute range while laying in bed. Patient is well known to the undersigned as I followed him on an inpatient and outpatient basis in the past. He looks tired and washed out. He notes recent cough productive of phlegm. Exam: Last Vital Signs Documentation Date Time Temp Pulse Resp B/P Pulse Ox O2 Delivery O2 Flow Rate FiO2 01/08/17 16:12 36.7 122 24 105/70 98 Room Air 01/08/17 12:00 2.0 Cardiovascular irregular rhythm, 2/6 systolic murmur Extremities: Changes of chronic venous insufficiency, dry cracked skin, no definite cellulitis by appearance, Impression and plan: Agree with empiric antibiotics for suspected respiratory tract infection. Patient is back on his chronic rate control medicines. Hold off on diuretic therapy, fever IV fluids for now. Continue Coumadin. (Geovany Zelaya,D.O.)
--- NOTE | 2017-01-08 14:14 | DIAGNOSTIC IMAGING REPORT ---
CHEST 2 VIEWS ROUTINE CLINICAL HISTORY: Pneumonia COMPARISON STUDY: 01/07/2017 FINDINGS: The heart remains enlarged. Small pleural effusions are suspected. There is been interval improvement in the right lower lung zone airspace opacity. Subtle airspace opacities are suspected within the left medial lung base. Given the prior history of trauma, diagnostic considerations include pulmonary contusion, pneumonia, or pulmonary edema. IMPRESSION: 1. Cardiomegaly and suspected small pleural effusions 2. Improving right lung airspace opacities. Subtle airspace opacities are now evident at the left medial lung base. Electronically signed by: Lj Hicks M.D. 01/08/2017 2:13 PM Dictated Date/Time: 01/08/2017 2:11 PM
--- NOTE | 2017-01-08 16:19 | DIAGNOSTIC IMAGING REPORT ---
HEAD CT NONCONTRAST CT DOSE: 1271.22 mGycm HISTORY: Abnormal CT exam followup contusion versus meningioma TECHNIQUE: Multiaxial CT images of the head were performed without the use of intravenous contrast. Comparison: 01/07/2017 Findings: The paranasal sinuses and mastoid air cells are clear. The small hyperdensity adjacent to the left sylvian fissure is noted. On the current study appears to relate to partial volume artifact of a normal brain tissue. The left suprasellar density is unaltered. There is no evidence for new or interval process. Ventricular system is midline. Impression: A repeat CT study suggest that the findings previously described are based on technical artifact. Electronically signed by: Jose Ramon Sigala M.D. 01/08/2017 4:18 PM Dictated Date/Time: 01/08/2017 4:14 PM
--- NOTE | 2017-01-08 17:28 | Progress Note ---
Internal Med Progress Note Date of Service: Jan 08, 2017. Provider Documentation: SUBJECTIVE: Patient is tired and bit disoriented Not able to give a good history C/o generalized body aches and pains from arthritis Denies any chest pain, SOB, does have cough with some sputum, no dizziness, localized weakness OBJECTIVE: Vital Signs-as noted below Exam: General-AOX2, lethargic, Not in acute distress Eyes-No icterus Neck-Supple Lungs-AEBE, no wheezing Heart-S1, S2 normal, Murmur + Abdomen-Soft, non tender, non distended, BS present Extremities-B/L Lower extremity- Chronic venous stasis changes, chronic erythema , dry skin + Neuro-Lethargic, AAOX3, grossly no focal deficits Lab data as noted below. ASSESSMENT & PLAN: Assessment and Plan 86 year old male presents to the ED complaining of fall last evening. Patient reports laying on floor all night until friends checked on him. Found to be in Afib with RVR. ATRIAL FIBRILLATION WITH RVR - Rate controlled Patient likely missed 2 meals and medications per him/Possible pneumonia RLL -S/P IV Lopressor 15 mg / Lopressor 100 mg PO in ED -Continue with Lopressor 100 mg BID PO , Verapamil 120 mg, Digoxin 0.125 mg -Work up- TSH- normal; Troponin - 0.026, 0.036, 0.033 -Cardiology on board POSSIBLE COMMUNITY ACQUIRED PNEUMONIA Patient is not a good historian, but does c/o cough with sputum, clear, no fever , chills, CXR - RLL pneumonia -Possible early sepsis with WBC count 13k, Tachycardic with A fib, Lactic acid 2.2 -IV fluids -IV Antibiotics- Zosyn (Was on Augmentin for Bronchitis) -Follow up sputum/Blood cx GIAN ON CKD STAGE 3 -crea 1.6 from baseline near 1.2 -gentle IVF hydration -hold diuretics -Monitor FALL, AMBULATORY DYSFUNCTION -fall precautions -PT/OT evaluations -Area Intelligence Technician consult for discharge planning 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, usually around 12 -follow H&H THROMBOCYTOPENIA -Stable -Monitor GERD -continue PPI BPH -continue Hytrin DVT PROPHYLAXIS: Coumadin CODE STATUS: FULL CODE per my discussion with the patient DISPO: PT/OT ordered Will likely need rehab Vital Signs: Date Time Temp Pulse Resp B/P Pulse Ox O2 Delivery O2 Flow Rate FiO2 01/08/17 16:12 36.7 122 24 105/70 98 Room Air 01/08/17 14:25 36.4 106 20 99/59 95 Room Air 01/08/17 12:00 96 Nasal Cannula 2.0 01/08/17 11:42 36.9 115 16 100/64 94 Room Air 01/08/17 08:00 96 Nasal Cannula 2.0 01/08/17 08:00 36.8 110 18 114/78 96 Room Air 01/08/17 07:34 125 01/08/17 03:06 36.4 101 18 110/62 96 Room Air 01/07/17 23:48 95 01/07/17 23:10 100 18 95/63 98 Room Air 01/07/17 22:30 117 12 130/86 99 Room Air 01/07/17 21:45 112 141/70 01/07/17 21:29 117 01/07/17 21:15 133 24 123/84 95 Room Air 01/07/17 21:15 138 123/84 01/07/17 19:56 163 107/82 01/07/17 19:44 97 Room Air 01/07/17 19:44 97 Room Air 01/07/17 19:27 153 01/07/17 19:23 36.4 140 22 104/80 97 Room Air Lab Results: Results Past 24 Hours Test 01/07/17 19:42 01/07/17 19:53 01/07/17 22:40 01/07/17 23:45 Range/Units White Blood Count 13.26 4.8-10.8 K/uL Red Blood Count 4.58 4.7-6.1 M/uL Hemoglobin 11.6 14.0-18.0 g/dL Hematocrit 36.5 42-52 % Mean Corpuscular Volume 79.7 80-100 fL Mean Corpuscular Hemoglobin 25.3 25-34 pg Mean Corpuscular Hemoglobin Concent 31.8 32-36 g/dl Platelet Count 128 130-400 K/uL Mean Platelet Volume 10.1 7.4-10.4 fL Neutrophils (%) (Auto) 83.7 % Lymphocytes (%) (Auto) 11.8 % Monocytes (%) (Auto) 3.5 % Eosinophils (%) (Auto) 0.3 % Basophils (%) (Auto) 0.3 % Neutrophils # (Auto) 11.10 1.4-6.5 K/uL Lymphocytes # (Auto) 1.57 1.2-3.4 K/uL Monocytes # (Auto) 0.46 0.11-0.59 K/uL Eosinophils # (Auto) 0.04 0-0.5 K/uL Basophils # (Auto) 0.04 0-0.2 K/uL RDW Standard Deviation 49.2 36.4-46.3 fL RDW Coefficient of Variation 17.0 11.5-14.5 % Immature Granulocyte % (Auto) 0.4 % Immature Granulocyte # (Auto) 0.05 0.00-0.02 K/uL Polychromasia 1+ Hypochromasia PRESENT Ovalocytes 1+ Echinocytes 1+ Prothrombin Time 22.6 9.0-12.0 SECONDS Prothromb Time International Ratio 2.0 0.9-1.1 Activated Partial Thromboplast Time 39.0 21.0-31.0 SECONDS Partial Thromboplastin Ratio 1.5 Sodium Level 139 136-145 mmol/L Potassium Level 4.3 3.5-5.1 mmol/L Chloride Level 106 98-107 mmol/L Carbon Dioxide Level 18 21-32 mmol/L Anion Gap 15.0 3-11 mmol/L Blood Urea Nitrogen 34 7-18 mg/dl Creatinine 1.60 0.60-1.40 mg/dl Est Creatinine Clear Calc Drug Dose 36.7 ml/min Estimated GFR () 44.9 Estimated GFR (Non- 38.7 BUN/Creatinine Ratio 21.5 10-20 Random Glucose 69 70-99 mg/dl Calcium Level 9.1 8.5-10.1 mg/dl Magnesium Level 2.3 1.8-2.4 mg/dl Total Bilirubin 2.1 0.2-1 mg/dl Direct Bilirubin 1.0 0-0.2 mg/dl Aspartate Amino Transf (AST/SGOT) 82 15-37 U/L Alanine Aminotransferase (ALT/SGPT) 126 12-78 U/L Alkaline Phosphatase 84 45-117 U/L Total Creatine Kinase 309 39-308 U/L Creatine Kinase MB 10.9 0.5-3.6 ng/ml Creatine Kinase MB Ratio 3.5 0-3.0 Troponin I 0.023 0-0.045 ng/ml Total Protein 6.5 6.4-8.2 gm/dl Albumin 3.3 3.4-5.0 gm/dl Thyroid Stimulating Hormone (TSH) 1.490 0.300-4.500 uIu/ml Digoxin Level 0.5 0.8-2.0 ng/ml Bedside Glucose 74 70-99 mg/dl Lactic Acid Level 2.2 0.4-2.0 mmol/L Urine Color DK YELLOW Urine Appearance CLOUDY CLEAR Urine pH 5.0 4.5-7.5 Urine Specific [place] 1.020 1.000-1.030 Urine Protein 1+ NEG Urine Glucose (UA) NEG NEG Urine Ketones 1+ NEG Urine Occult Blood NEG NEG Urine Nitrite NEG NEG Urine Bilirubin NEG NEG Urine Urobilinogen NEG NEG Urine Leukocyte Esterase NEG NEG Urine WBC (Auto) 1-5 0-5 /hpf Urine RBC (Auto) 0-4 0-4 /hpf Urine Hyaline Casts (Auto) 1-5 0-5 /lpf Urine Epithelial Cells (Auto) 5-10 0-5 /lpf Urine Bacteria (Auto) NEG NEG Influenza Type A (RT-PCR) Neg for Influ A NEG Influenza Type B (RT-PCR) Neg for Influ B NEG Test 01/08/17 01:54 01/08/17 04:40 01/08/17 08:05 01/08/17 09:50 Range/Units Total Creatine Kinase 302 291 39-308 U/L Creatine Kinase MB 9.7 9.3 0.5-3.6 ng/ml Creatine Kinase MB Ratio 3.2 0-3.0 Troponin I 0.036 0.033 0-0.045 ng/ml White Blood Count 11.92 4.8-10.8 K/uL Red Blood Count 4.38 4.7-6.1 M/uL Hemoglobin 11.2 14.0-18.0 g/dL Hematocrit 35.8 42-52 % Mean Corpuscular Volume 81.7 80-100 fL Mean Corpuscular Hemoglobin 25.6 25-34 pg Mean Corpuscular Hemoglobin Concent 31.3 32-36 g/dl RDW Standard Deviation 50.8 36.4-46.3 fL RDW Coefficient of Variation 17.2 11.5-14.5 % Platelet Count 117 130-400 K/uL Mean Platelet Volume 10.2 7.4-10.4 fL Prothrombin Time 27.3 9.0-12.0 SECONDS Prothromb Time International Ratio 2.5 0.9-1.1 Activated Partial Thromboplast Time 39.8 21.0-31.0 SECONDS Partial Thromboplastin Ratio 1.5 Sodium Level 141 136-145 mmol/L Potassium Level 4.3 3.5-5.1 mmol/L Chloride Level 111 98-107 mmol/L Carbon Dioxide Level 17 21-32 mmol/L Anion Gap 13.0 3-11 mmol/L Blood Urea Nitrogen 34 7-18 mg/dl Creatinine 1.50 0.60-1.40 mg/dl Est Creatinine Clear Calc Drug Dose 39.2 ml/min Estimated GFR () 48.5 Estimated GFR (Non- 41.9 BUN/Creatinine Ratio 22.4 10-20 Random Glucose 69 70-99 mg/dl Lactic Acid Level 2.3 0.4-2.0 mmol/L Calcium Level 8.3 8.5-10.1 mg/dl Magnesium Level 2.3 1.8-2.4 mg/dl Total Bilirubin 2.1 0.2-1 mg/dl Aspartate Amino Transf (AST/SGOT) 100 15-37 U/L Alanine Aminotransferase (ALT/SGPT) 130 12-78 U/L Alkaline Phosphatase 76 45-117 U/L Total Protein 5.6 6.4-8.2 gm/dl Albumin 3.0 3.4-5.0 gm/dl Globulin 2.6 2.5-4.0 gm/dl Albumin/Globulin Ratio 1.2 0.9-2 Triglycerides Level 57 0-150 mg/dl Cholesterol Level 72 0-200 mg/dl HDL Cholesterol 20 mg/dl LDL Cholesterol, Calculated 41 mg/dl VLDL Cholesterol, Calculated 11 mg/dl Cholesterol/HDL Ratio 3.6 Microbiology Results 01/07/17 Blood Culture, Received Pending 01/07/17 Blood Culture, Received Pending
[2017-01-08] MEDS: WARFARIN SOD 3 MG TAB PO SCH (17:41)
[2017-01-08] MEDS: DIGOXIN 0.125 MG TAB PO SCH ×2 (18:17→18:31)
--- NOTE | 2017-01-08 18:36 | Cardiology Progress Note ---
Cardiology Progress Note Date of Service Jan 08, 2017. Cardiology Progress Note Patient's telemetry was reassessed per the request of nursing on 01/08/17 at 6: 35 PM. Patient is somewhat bradycardic with rates for the most part in the 60s. He is due for his evening dose of digoxin and 100 mg of metoprolol at 2100 and again at 9:00 in the morning. He is also due for verapamil morning. It appears that his elevated ventricular rates have improved with IV fluid at the present time. The patient still is a ill in appearance compared to his typical baseline. I'm going to hold his digoxin for now and discontinue it from his old electronic medication list. I'm going to reduce his metoprolol dose to 50 mg by mouth twice a day with hold for heart rate less than 70 and systolic blood pressure less than 100. His a.m. dose of verapamil will be continued however I've placed him hold parameter for heart rate less than 70 and blood pressure less than 100.
[2017-01-08] MEDS: SODIUM CHLORIDE 0.9% 500ML 500 ML IV SCH ×2 (18:55→19:27)
--- NOTE | 2017-01-08 19:28 | Progress Note ---
Progress Note Date of Service Jan 08, 2017. Progress Note Patient was seen and evaluated as clinically deteriorating. On my evaluation, he is lethargic, but arousable and answers simple questions and follows commands, but confused. In mild respiratory distress, requiring oxygen 2 L- SaO2 98%. Lungs- decreased breath sounds, no wheezing or crackles, Heart- Irregular, Murmur +, No JVD, Ext- Skin dry, chronic venous stasis/ erythematous BP dropped down to as low as 77/63. Afebrile. HR in 60s and tele strip show 1-2 sec pause. --Likely sepsis secondary to RLL pneumonia with functional decline/multiple falls recently and multiple co morbidities --Gave IV NS bolus 500 cc -- responded with BP up to 103/55. Increase maintenance IVF to 100 cc/hour --Hold Metoprolol, Verapamil, Digoxin for now due to low BP --Will do CXR, ABGs stat --Updated son Saqib/Pedro Pablo about his current condition, poor prognosis and high risk of clinical deterioration. Would want to make him DNR/DNI but okay with everything else. Monitor closely as high risk for deterioration and may require ICU care.
--- NOTE | 2017-01-08 20:08 | DIAGNOSTIC IMAGING REPORT ---
CHEST ONE VIEW PORTABLE HISTORY: RESP DISTRESS/HYPOXIA COMPARISON: Chest 01/08/2017. FINDINGS: The heart remains enlarged. Bibasilar hazy opacities and trace pleural effusions have improved. The upper lungs and remain clear. No pneumothorax. IMPRESSION: 1. Stable cardiomegaly. 2. Basilar hazy opacities and trace pleural effusions have improved. This may represent resolving edema or pneumonia. Electronically signed by: Andrew Bauer M.D. 01/08/2017 8:07 PM Dictated Date/Time: 01/08/2017 8:06 PM
[2017-01-08 20:10] LABS: ALLEN TEST POS (POS); ARTERIAL BLD GAS O2 SATURATION 98.7 % (90-95); ARTERIAL BLOOD GAS BASE EXCESS -7.8 mEq/L (-9-1.8); ARTERIAL BLOOD GAS HCO3 14 mmol/L (19-24); ARTERIAL BLOOD GAS PO2 118 mmHg (80-95); ARTERIAL BLOOD GAS pH 7.48 (7.35-7.45); O2 ADMINISTRATION 3L O2
[2017-01-08] MEDS: METOPROLOL TARTRATE 50 MG TAB PO SCH (21:56)
[2017-01-08] MEDS ORDERED: SODIUM CHLORIDE 0.9% 500ML 500 ML IV SCH (23:00)
--- NOTE | 2017-01-08 23:12 | Progress Note ---
Progress Note Post Crystalloid Evaluation Date: Jan 08, 2017 Time: 23:04 Subjective 86 yo M with RLL pneumonia presented with afib with RVR and a sepsis patient last night. A few hours ago he became acutely lethargic but arousable, answering simple questions and following commands. He also demonstrated mild respiratory distress requiring 2L oxygen, which has since increased to 4L via NC to maintain a saturation >95%. He goes in and out of tachypneic episodes on my bedside exam but is sleeping and this appears to be his regular sleep pattern according to his son. The patient awoke and told me his breathing was better. Current vitals are: 84/58 RR22 P67 T36.4 100% on 4L via NC. Lungs - good breath sounds, no wheezing rales or crackles, Heart- Irregular, Murmur + , No JVD, Ext- Skin dry, chronic venous stasis/erythematous Physical Exam Vital Signs: Vital Signs Date Time Temp Pulse Resp B/P Pulse Ox O2 Delivery O2 Flow Rate FiO2 01/08/17 21:58 36.4 67 22 84/58 100 Nasal Cannula 4.0 Lungs: lungs clear, normal breath sounds, + pertinent finding (intermittent tachypnea to 30 breaths per min, which resolves to <20 every few minutes, alternating) Skin: Turgor (normal) Assessment & Plan Presence of: Severe Sepsis COMMUNITY ACQUIRED PNEUMONIA -sepsis with hypotension responsive to IVF earlier this evening when he experienced a clinical decline, WBC 12 from this morning's labs, patient is currently AF. He is acidotic with a lactate of 2.6 up from 2.2 this morning. -evening CXR with RLL pneumonia which has improved -Was on Augmentin in 12/03 for bronchitis, CXR without consolidation at that time -Empirically started on Zosyn yesterday so has been on this for about 24 hours at this point. -Gentle IVF hydration was increased from 80cc to 100cc this evening after patient became hypotensive. BP responded well and has gone back down to 85 systolic at this point. Will give another 500cc of IVF now. -Blood cultures are still pending -trending lactate in another 6 hours. -flu negative -sputum culture pending -cont holding Metoprolol, Verapamil, Digoxin for now due to low BP (per primary team) Alfreda Gaffney DO Hospitalist
[2017-01-09] VITALS (13 sets, daily range): BP systolic 97–138; BP diastolic 61–85; PULSE 75–98; TEMP 35.6–37; O2SAT 95–100
[2017-01-09] MEDS: PIPERACILL/TAZOBAC IV 3.375 GM in DEXTROSE 5% 100ML 100 ML IV SCH ×3 (02:09→18:45)
[2017-01-09 06:48] LABS: MEAN CELL VOLUME 80.6 fL (80-100); MEAN CORPUSCULAR HEMOGLOBIN 24.9 pg (25-34); MEAN CORPUSCULAR HGB CONC 30.9 g/dl (32-36); MEAN PLATELET VOLUME 10.9 fL (7.4-10.4); PLATELET COUNT 110 K/uL (130-400); RED BLOOD COUNT 4.34 M/uL (4.7-6.1); WHITE BLOOD COUNT 10.33 K/uL (4.8-10.8)
[2017-01-09 06:56] LABS: INR 2.4 (0.9-1.1); PROTHROMBIN TIME (PATIENT) 26.8 SECONDS (9.0-12.0)
[2017-01-09] MEDS: LEVOTHYROXINE 75 MCG TAB PO SCH (07:00)
[2017-01-09 07:23] LABS: BUN/CREATININE RATIO 22.8 (10-20); CALCIUM 8.2 mg/dl (8.5-10.1); CREATININE 1.8 mg/dl (0.60-1.40); POTASSIUM 4.4 mmol/L (3.5-5.1)
[2017-01-09] MEDS: METOPROLOL TARTRATE 50 MG TAB PO SCH ×2 (08:24→20:53)
[2017-01-09] MEDS: VERAPAMIL HCL 120 MG TABCR PO SCH (08:25)
[2017-01-09] MEDS: TRAMADOL HCL 50 MG TAB PO PRN (08:26)
[2017-01-09] MEDS: PANTOprazole SOD 40 MG TAB PO SCH ×2 (09:00→20:54)
[2017-01-09] MEDS: POTASSIUM CHLORIDE 20 MEQ TABCR PO SCH (09:00)
[2017-01-09] MEDS: ASPIRIN 81 MG ECTAB PO SCH (09:00)
--- NOTE | 2017-01-09 10:12 | Cardiology Follow-Up ---
Subjective General Date of Service: Jan 09, 2017. Chief Complaint: Atrial fibrillation Pt evaluation today including: conversation w/ patient, conversation w/ family , physical exam, chart review, lab review, review of studies, review of inpatient medication list History of Present Illness Patient seen and examined. Family at bedside. Overnight events noted. Lethargic. EKG this morning reveals atrial fibrillation at 99 bpm with premature ventricular or aberrantly conducted complexes, indeterminate axis, right bundle branch block, T wave abnormality Telemetry: Chronic atrial fibrillation, rates currently 80-100 bpm. Low ~ mid 50s, up to ~150 bpm. Allergies Coded Allergies: Oxycodone (Verified Adverse Reaction, Unknown, PROLONGED HICCUPS - RELIEVED WITH THORAZINE, 01/07/17) Social History Smoking Status: Never Smoker Hx Tobacco Use In Past Year?: No Hx Alcohol Use - Type And Amou: No Hx Substance Use - Type And Am: No Problem List Medical Problems: (1) CHF exacerbation Status: Acute (2) Hypotension Status: Acute Physical Exam Vital Signs Last Vital Signs Documentation Date Time Temp Pulse Resp B/P Pulse Ox O2 Delivery O2 Flow Rate FiO2 01/09/17 08:06 36.8 93 16 118/82 100 Nasal Cannula 4.0 Physical Exam Constitutional: Level of Distress: acutely ill, chronically ill Psychiatric: Mental Status: lethargic Head: normocephalic Neck: pertinent finding (Normal JVP) Lungs: Auscultation: no wheezing, deminished air movement, decreased breath sounds , rhonchi Cardiovascular: Heart Auscultation: tachycardia (~100 bpm), II/ LETICIA, irregular rate rhythm Extremities: no cyanosis, no edema, no clubbing, pertinent finding ( excoriations. chronic stasis changes. 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 Appears hypovolemic. Symptomatic orthostatic hypotension Chronic atrial fibrillation EF previously preserved; TTE pending this admission. RECOMMENDATIONS/PLAN: Hold diuretics ? Additional IVF's Continue Lopressor (reduced dose) Hold digoxin, verapamil Change terazosin to PM dosing, dose reduced to 2 mg/day with BP hold parameters Continue chronic Coumadin anticoagulation CARDIOLOGY ATTENDING ADDENDUM: The patient was seen and personally examined. Agree with Jose Ramon Mcdonald PA-C's findings and plans as documented above with additions as noted below. S: pt lethargic, somnolent today. Exam: AF present, rate well controlled in the 70's. BP stable. Echocardiogram, MV prolapse partially flail leaflet, severe MR, new RV dilatation, RV pressure / volume overload. Impression As above. Pt is not a surgical candidate for MV disease. Continue supportive care. I had a long discussion with his son and daughter in law. I am concerned of progressive recent decline in patient's health leading up to this stay. Will continue supportive care, but I believe DNR status is appropriate, and if he improves I anticipate he will not be able to return to live independently at home and will require SNF level care. DVT proph: on coumadin, INR =2.4 Laboratory Results Last 24 Hours Test 01/08/17 19:55 01/09/17 06:37 Arterial Blood pH 7.48 Arterial Blood Partial Pressure CO2 19 mmHg Arterial Blood Partial Pressure O2 118 mmHg Arterial Blood HCO3 14 mmol/L Arterial Blood Oxygen Saturation 98.7 % Arterial Blood Base Excess -7.8 mEq/L Arterial Blood Gas Delivery 3L O2 Cuco Test POS Lactic Acid Level 2.6 mmol/L White Blood Count 10.33 K/uL Red Blood Count 4.34 M/uL Hemoglobin 10.8 g/dL Hematocrit 35.0 % Mean Corpuscular Volume 80.6 fL Mean Corpuscular Hemoglobin 24.9 pg Mean Corpuscular Hemoglobin Concent 30.9 g/dl RDW Standard Deviation 50.5 fL RDW Coefficient of Variation 17.2 % Platelet Count 110 K/uL Mean Platelet Volume 10.9 fL Nucleated RBC Absolute Count (auto) 0.03 K/uL Nucleated Red Blood Cells % 0.3 % Prothrombin Time 26.8 SECONDS Prothromb Time International Ratio 2.4 Sodium Level 138 mmol/L Potassium Level 4.4 mmol/L Chloride Level 109 mmol/L Carbon Dioxide Level 20 mmol/L Anion Gap 9.0 mmol/L Blood Urea Nitrogen 41 mg/dl Creatinine 1.80 mg/dl Est Creatinine Clear Calc Drug Dose 33.1 ml/min Estimated GFR () 38.9 Estimated GFR (Non- 33.6 BUN/Creatinine Ratio 22.8 Random Glucose 103 mg/dl Calcium Level 8.2 mg/dl
--- NOTE | 2017-01-09 10:29 | Clinical Documentation Query ---
CLINICAL DOCUMENTATION QUERY Dr. RUFF, In your clinical opinion is this patient being managed for: ( + ) Metabolic encephalopathy ( ) Other explanation of clinical findings (Please Explain) ( ) Unable to determine (Please Define) ( ) Need to Discuss ( ) Not Agree The medical record reflects the following clinical findings, treatment, and risk factors. Clinical Indicators: 86 yo male presenting with sepsis and pneumonia, initially alert and oriented x 3. Becoming lethargic and confused, hypotensive (77/64), hypoxic (89% on RA). Cr and lactic acid trending up. Treatment: IV fluid bolus with increased maintenance rate, CT head, repeat CXR, ABG's, O2 support Risk Factors:hypotension, worsening renal failure, hypoxia Please clarify and document your clinical opinion in the progress notes and discharge summary. Terms such as "probable", "suspected", "likely", "questionable", "possible", or "still to be ruled out" are acceptable. IF IN AGREEMENT, YOU MUST DOCUMENT ABOVE DIAGNOSTIC STATEMENT IN DAILY PROGRESS NOTES AND DISCHARGE SUMMARY. This document is not part of the patient's record. Thank You, Tiesha Naik, RN [phone]
--- NOTE | 2017-01-09 10:57 | Progress Note ---
Internal Med Progress Note Date of Service: Jan 09, 2017. Provider Documentation: SUBJECTIVE: Patient did deteriorate clinically yesterday evening. His BP and sao2 dropped- responded to IVF Tired and drowsy, but arousable and communicating. Oriented to place, person, knows his , but not able to give a good history C/o generalized body aches and pains from arthritis Denies any chest pain, SOB, does have cough with some sputum, no dizziness, localized weakness BP in 100s, HR - 90s, had few 1-2 sec pauses yesterday OBJECTIVE: Vital Signs-as noted below Exam: General-OX2, lethargic/Drowsy, Not in acute distress Eyes-No icterus Neck-Supple Lungs-AEBE, no wheezing Heart-S1, S2 normal, Murmur + Abdomen-Soft, non tender, non distended, BS present Extremities-B/L Lower extremity- Chronic venous stasis changes, chronic erythema , dry skin + Neuro-Lethargic, AAOX3, grossly no focal deficits Lab data as noted below. ASSESSMENT & PLAN: Assessment and Plan 86 year old male presents to the ED complaining of fall last evening. Patient reports laying on floor all night until friends checked on him. Found to be in Afib with RVR. Clinically deteriorated on 01/08/17 evening with hypotension, likely sepsis and responded to IVF. SEVERE SEPSIS WBC 13k on presentation, Lactic acid-worse, Hypotension which responded to IVF, Afib with RVR Likely secondary to PNEUMONIA, RLL- Possibly aspiration pneumonia -S/P IV Fluid NS boluses 500 cc x 2 yesterday, now on IV NS at 100 cc/hour -IV Zosyn (Day 2) -Work up- Repeat CXR yesterday- slight improvement in bibasilar opacities, ABG- respiratory alkalosis due to tachypnea, Lactic acid- worsening, Blood cx x 2 - negative HYPOTENSION: Improved Likely secondary to sepsis as above -BP dropped to 77/50s yesterday evening and responded to IVF boluses and increasing maintenance fluid to 100 cc/hour -Held Metoprolol, Verapamil, Digoxin due to hypotension -Monitor ATRIAL FIBRILLATION WITH RVR - Rate controlled Patient likely missed 2 meals and medications per him/Possible pneumonia RLL Tele on 01/08/17- showed 1-2 sec pauses -S/P IV Lopressor 15 mg / Lopressor 100 mg PO in ED -Held Lopressor 100 mg BID PO , Verapamil 120 mg, Digoxin 0.125 mg due to hypotension/1-2 Sec pause on tele monitor yesterday -Work up- TSH- normal; Troponin - 0.026, 0.036, 0.033 -Cardiology on board GIAN ON CKD STAGE 3- Worsening Likely secondary to sepsis/hypotension- ATN -Baseline 1.2 -IVF hydration -hold diuretics -Monitor METABOLIC ENCEPHALOPATHY Likely secoondary to sepsis -Per baseline: AAOX3 per family with some forgetfulness and memory losses -Currently oriented to place, person but lethargic, drowsy -Monitor with rx of sepsis FALL, AMBULATORY DYSFUNCTION /PROGRESSIVE FUNCTIONAL DECLINE Per family, he lives at [facility] by himself and past few weeks had been having multiple falls/Progressive functional decline -Fall precautions -PT/OT evaluations -Operator Helper consult for discharge planning - will need SNF vs Rehab on discharge MENINGIOMA - per CT scan likely meningioma, short term followup for possible contusion in setting of trauma recommended -repeat CT head done- artifact MILD LFT ELEVATION - Likely secondary to Sepsis -trend CALF PAIN/EDEMA -R/o DVT, has INR of 2 today, which is therapeutic -Venous duplex- negative for DVT HYPOTHYROIDISM -TSH normal -continue Synthroid DIASTOLIC CHF /VALVULAR HEART DISEASE (SEVERE MR) -Appears slightly dry -hold Bumex for GIAN /Sepsis - IVF hydration -update Echo HTN - Now hypotensive -Helc BB, Verapamil 6mm NODULAR DENSITY -At left MCA bifurcation, incidental finding -nonemergent brain MRA recommended 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 Had a family meeting today and per his advance directives - confirmed that he will be DNR/DNI. Family said he had been progressively functionally declining for past few weeks, but insisted on living by himself even when he couldnt take care of himself Goals of care discussed- okay with ICU, Vasopressors but DNR/DNI DISPO: PT/OT once better Will likely need rehab Vital Signs: Date Time Temp Pulse Resp B/P Pulse Ox O2 Delivery O2 Flow Rate FiO2 01/09/17 08:06 36.8 93 16 118/82 100 Nasal Cannula 4.0 01/09/17 04:02 36.2 84 21 116/71 100 Nasal Cannula 4.0 01/09/17 04:00 98 Nasal Cannula 4.0 01/09/17 02:00 36.3 77 29 125/76 100 Nasal Cannula 4.0 01/09/17 00:10 98 Nasal Cannula 4.0 01/09/17 00:02 36.1 76 26 121/68 99 Nasal Cannula 4.0 01/08/17 21:58 36.4 67 22 84/58 100 Nasal Cannula 4.0 01/08/17 19:55 36.1 62 22 97/47 100 Nasal Cannula 3.0 01/08/17 19:45 98 Nasal Cannula 3.0 01/08/17 18:54 84/53 98 Nasal Cannula 2.0 01/08/17 18:46 62 77/64 89 Room Air 01/08/17 18:46 85/53 01/08/17 16:12 36.7 122 24 105/70 98 Room Air 01/08/17 16:00 95 Room Air 01/08/17 14:25 36.4 106 20 99/59 95 Room Air 01/08/17 12:00 96 Nasal Cannula 2.0 01/08/17 11:42 36.9 115 16 100/64 94 Room Air Lab Results: Results Past 24 Hours Test 01/08/17 19:55 01/09/17 06:37 Range/Units Arterial Blood pH 7.48 7.35-7.45 Arterial Blood Partial Pressure CO2 19 35-46 mmHg Arterial Blood Partial Pressure O2 118 80-95 mmHg Arterial Blood HCO3 14 19-24 mmol/L Arterial Blood Oxygen Saturation 98.7 90-95 % Arterial Blood Base Excess -7.8 -9-1.8 mEq/L Arterial Blood Gas Delivery 3L O2 Cuco Test POS POS Lactic Acid Level 2.6 0.4-2.0 mmol/L White Blood Count 10.33 4.8-10.8 K/uL Red Blood Count 4.34 4.7-6.1 M/uL Hemoglobin 10.8 14.0-18.0 g/dL Hematocrit 35.0 42-52 % Mean Corpuscular Volume 80.6 80-100 fL Mean Corpuscular Hemoglobin 24.9 25-34 pg Mean Corpuscular Hemoglobin Concent 30.9 32-36 g/dl RDW Standard Deviation 50.5 36.4-46.3 fL RDW Coefficient of Variation 17.2 11.5-14.5 % Platelet Count 110 130-400 K/uL Mean Platelet Volume 10.9 7.4-10.4 fL Nucleated RBC Absolute Count (auto) 0.03 0-0 K/uL Nucleated Red Blood Cells % 0.3 % Prothrombin Time 26.8 9.0-12.0 SECONDS Prothromb Time International Ratio 2.4 0.9-1.1 Sodium Level 138 136-145 mmol/L Potassium Level 4.4 3.5-5.1 mmol/L Chloride Level 109 98-107 mmol/L Carbon Dioxide Level 20 21-32 mmol/L Anion Gap 9.0 3-11 mmol/L Blood Urea Nitrogen 41 7-18 mg/dl Creatinine 1.80 0.60-1.40 mg/dl Est Creatinine Clear Calc Drug Dose 33.1 ml/min Estimated GFR () 38.9 Estimated GFR (Non- 33.6 BUN/Creatinine Ratio 22.8 10-20 Random Glucose 103 70-99 mg/dl Calcium Level 8.2 8.5-10.1 mg/dl
--- NOTE | 2017-01-09 11:11 | ECHOCARDIOGRAM REPORT ---
*NOTICE TO RECEIVING CONSTITUTION PARTY AGENCY This information is strictly Confidential and protected under [place] law. [place] law prohibits you from making any further disclosure of this information unless further disclosure is expressly permitted by the written consent of the person to whom it pertains or is authorized by law. A general authorization for the release of medical or other information is not sufficient for this purpose. Hospital accepts no responsibility if the information is made available to any other person, INCLUDING THE PATIENT. Interpretation Summary * Name: QUIN SMITH Study Date: 01/08/2017 06:57 AM BP: 110/62 mmHg * Patient Location: C.EDINP\S\EDINP 1\S\6 HR: 101 * : 1930 (M/d/yyyy) Gender: Male Height: 68 in * Age: 86 yrs Ethnicity: CA Weight: 197 lb * Ordering Physician: Cehryl Garcia * Referring Physician: Self, Referred * Performed By: Anupam Mustafa RCS * * Reason For Study: A-FIB * BSA: 2.0 m2 * -- Conclusions -- * Atrial fibrillation with rapid ventricular rate was present during the echocardiogram. * Left ventricular systolic function is normal. * Flattened septum is consistent with RV pressure/volume overload. * The left ventricular wall motion is otherwise normal. * The right ventricle is moderately dilated. * The left atrium is severely dilated. * The right atrium is moderately dilated. * Aortic valve sclerosis mild, without significant aortic valvular stenosis. * There is mild mitral annular calcification. 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 * Severe mitral regurgitation is present. * There is no mitral valve stenosis. * There is moderate tricuspid regurgitation. * The 2D findings of right atrial and ventricular chamber enlargement as well as septal flattening suggest underlying pulmonary hypertension, although Doppler data suggests normal pulmonary artery pressures. * There is no pericardial effusion. * Small right pleural effusion. * Compared to the prior study dated 08/13/16, the mitral valve findings are similar. * The septal flattening and findings of RV pressure / volume overload are new. Procedure Details * A complete two-dimensional transthoracic echocardiogram was performed (2D, M-mode, Doppler and color flow Doppler). Left Ventricle * The left ventricle is normal in size. * There is normal left ventricular wall thickness. * Left ventricular systolic function is normal. * Ejection Fraction = 55-60%. * Flattened septum is consistent with RV pressure/volume overload. * The left ventricualar wall motion is otherwise normal. Right Ventricle * The right ventricle is moderately dilated. * The right ventricular systolic function is moderately reduced. Atria * The left atrium is severely dilated. * The right atrium is moderately dilated. * There is no evidence of atrial septal defect, but resolution does not allow assessment for a patent foramen ovale. Mitral Valve * There is mild mitral annular calcification. 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 Severe mitral regurgitation is present. There is no mitral valve stenosis. Tricuspid Valve * The tricuspid valve is normal. * There is no tricuspid stenosis. * There is moderate tricuspid regurgitation. * The 2D findisngs of right atrial and ventricular chamber enlargement as well as septal flattening suggest underlying pulmonary hypertension, although Doppler data suggests normal pulmonary artery pressures. Aortic Valve * The aortic valve is trileaflet. * Aortic valve sclerosis mild, without significant aortic valvular stenosis. * Aortic stenosis is absent. * There is no significant aortic regurgitation. Pulmonic Valve * The pulmonary valve is not well seen, but the Doppler examination is normal without significant regurgitation or stenosis. Great Vessels * The aortic root and proximal ascending aorta are normal sized. Pericardium/Pleural * There is no pericardial effusion. * Small right pleural effusion. Great Vessels * Normal inferior vena cava diameter and respiratory variation suggests normal central venous pressure. MMode 2D Measurements and Calculations IVSd 1.1 cm IVSs 1.4 cm LVIDd 4.5 cm LVIDs 3.3 cm LVPWd 1.1 cm LVPWs 1.4 cm IVS/LVPW 0.97 FS 26.4 % EDV(Teich) 91.7 ml ESV(Teich) 44.2 ml EF(Teich) 51.8 % EDV(cubed) 90.2 ml ESV(cubed) 36.0 ml EF(cubed) 60.1 % % IVS thick 32.2 % % LVPW thick 30.6 % LV mass(C)d 168.3 grams LV mass(C)dI 82.9 grams/m\S\2 LV mass(C)s 161.8 grams LV mass(C)sI 79.7 grams/m\S\2 CO(Teich) 4.7 l/min CI(Teich) 2.3 l/min/m\S\2 SV(Teich) 47.5 ml SI(Teich) 23.4 ml/m\S\2 CO(cubed) 5.3 l/min CI(cubed) 2.6 l/min/m\S\2 SV(cubed) 54.2 ml SI(cubed) 26.7 ml/m\S\2 Ao root diam 4.0 cm Ao root area 12.8 cm\S\2 ACS 2.1 cm LA dimension 5.3 cm LA/Ao 1.3 LVAd ap4 35.5 cm\S\2 LVLd ap4 8.9 cm EDV(MOD-sp4) 116.0 ml LVAs ap4 21.5 cm\S\2 LVLs ap4 7.9 cm ESV(MOD-sp4) 52.0 ml EF(MOD-sp4) 55.2 % LVAd ap2 31.5 cm\S\2 LVLd ap2 8.8 cm EDV(MOD-sp2) 94.0 ml LVAs ap2 21.4 cm\S\2 LVLs ap2 8.2 cm ESV(MOD-sp2) 47.0 ml EF(MOD-sp2) 50.0 % CO(MOD-sp4) 6.3 l/min CI(MOD-sp4) 3.1 l/min/m\S\2 SV(MOD-sp4) 64.0 ml SI(MOD-sp4) 31.5 ml/m\S\2 CO(MOD-sp2) 4.6 l/min CI(MOD-sp2) 2.3 l/min/m\S\2 SV(MOD-sp2) 47.0 ml SI(MOD-sp2) 23.1 ml/m\S\2 Doppler Measurements and Calculations MV A max levi 148.8 cm/sec Ao V2 max 84.4 cm/sec Ao max PG 2.8 mmHg Ao max PG (full) 1.6 mmHg LV V1 max PG 1.3 mmHg LV V1 max 56.3 cm/sec PA V2 max 73.3 cm/sec PA max PG 2.2 mmHg PI max levi 257.9 cm/sec PI max PG 26.6 mmHg PI dec slope 297.8 cm/sec\S\2 PI P1/2t 253.7 msec TR max levi 243.9 cm/sec
[2017-01-09] MEDS: SODIUM CHLORIDE 0.9% 1000ML 1,000 ML IV SCH ×3 (12:30→21:15)
[2017-01-09] MEDS ORDERED: NURSING VERBAL MED ORDER ONE (13:45)
[2017-01-09] MEDS ORDERED: ACETAMINOPHEN IV 650 MG / 65ML IV ONE (14:30)
[2017-01-09] MEDS ORDERED: NURSING DECISION MEDICATION ORDER SCH (15:00)
[2017-01-09] MEDS: WARFARIN SOD 0.5 MG TAB PO SCH (16:08)
[2017-01-09] MEDS: EUCERIN CR 120 GM JAR EXT SCH (20:51)
[2017-01-10] VITALS (11 sets, daily range): BP systolic 94–127; BP diastolic 49–75; PULSE 79–99; TEMP 36.5–36.9; O2SAT 91–98
[2017-01-10] MEDS: PIPERACILL/TAZOBAC IV 3.375 GM in DEXTROSE 5% 100ML 100 ML IV SCH ×3 (01:51→17:55)
[2017-01-10] MEDS: LEVOTHYROXINE 200 MCG TAB PO SCH (05:57)
--- NOTE | 2017-01-10 06:30 | Clinical Documentation Query ---
CLINICAL DOCUMENTATION QUERY Dr. RUFF, In your clinical opinion is this patient being managed for: ( + ) Pressure ulcer of left buttock, stage 3, POA ( + ) Pressure ulcer of right buttock, unstageable, POA ( ) Other explanation of clinical findings (Please Explain) ( ) Unable to determine (Please Define) ( ) Need to Discuss ( ) Not Agree The medical record reflects the following clinical findings, treatment, and risk factors. Clinical Indicators: WOCN consulted for sacral wounds. Her documentation reflects 2 pressure ulcers on buttocks-1 on R and 1 on L. Treatment:accumax mattress, optifoam dressing applied to L and R buttocks and change q 3 days Risk Factors: age, fall at home with extended time on floor Please clarify and document your clinical opinion in the progress notes and discharge summary. Terms such as "probable", "suspected", "likely", "questionable", "possible", or "still to be ruled out" are acceptable. IF IN AGREEMENT, YOU MUST DOCUMENT ABOVE DIAGNOSTIC STATEMENT IN DAILY PROGRESS NOTES AND DISCHARGE SUMMARY. This document is not part of the patient's record. Thank You, Tiesha Naik, RN [phone]
[2017-01-10 07:02] LABS: HEMATOCRIT 33.4 % (42-52); MEAN CELL VOLUME 81.1 fL (80-100); MEAN CORPUSCULAR HGB CONC 30.8 g/dl (32-36); RED BLOOD COUNT 4.12 M/uL (4.7-6.1); WHITE BLOOD COUNT 8.81 K/uL (4.8-10.8)
[2017-01-10 07:10] LABS: INR 2.8 (0.9-1.1); PROTHROMBIN TIME (PATIENT) 31.4 SECONDS (9.0-12.0)
[2017-01-10 07:20] LABS: MEAN PLATELET VOLUME 10.1 fL (7.4-10.4); PLATELET COUNT 99 K/uL (130-400); PLT ESTIMATE DECREASED
[2017-01-10 07:45] LABS: ALB/GLOB RATIO 0.9 (0.9-2); BUN/CREATININE RATIO 23.1 (10-20); CALCIUM 7.9 mg/dl (8.5-10.1); CREATININE 1.4 mg/dl (0.60-1.40); POTASSIUM 3.6 mmol/L (3.5-5.1)
[2017-01-10] MEDS: PANTOprazole SOD 40 MG TAB PO SCH ×2 (08:00→19:37)
[2017-01-10] MEDS: VERAPAMIL HCL 120 MG TABCR PO SCH (08:00)
[2017-01-10] MEDS: ASPIRIN 81 MG ECTAB PO SCH (08:00)
[2017-01-10] MEDS: POTASSIUM CHLORIDE 20 MEQ TABCR PO SCH (08:01)
[2017-01-10] MEDS: METOPROLOL TARTRATE 50 MG TAB PO SCH ×2 (08:01→19:37)
[2017-01-10] MEDS: EUCERIN CR 120 GM JAR EXT SCH ×2 (09:00→19:37)
--- NOTE | 2017-01-10 09:22 | Cardiology Follow-Up ---
Subjective General Date of Service: Jan 10, 2017. Chief Complaint: Atrial fibrillation Pt evaluation today including: conversation w/ patient, conversation w/ family , physical exam, chart review, lab review, review of studies, review of inpatient medication list History of Present Illness Patient seen and examined. Multiple family members at bedside. Awake. Alert. Oriented. + Dyspnea. + Cough. + Mild abdominal fullness Thomas draining concentrated urine No chest pain. No palpitations. Telemetry: Chronic atrial fibrillation, rates currently in the upper 80's. January 08, 2017 TTE Interpretation Summary: Atrial fibrillation with rapid ventricular rate was present during the echocardiogram. Left ventricular systolic function is normal. Flattened septum is consistent with RV pressure/ volume overload. The left ventricular wall motion is otherwise normal. The right ventricle is moderately dilated. The left atrium is severely dilated. The right atrium is moderately dilated. Aortic valve sclerosis mild, without significant aortic valvular stenosis. There is mild mitral annular calcification. 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 Severe mitral regurgitation is present. There is no mitral valve stenosis. There is moderate tricuspid regurgitation. The 2D findings of right atrial and ventricular chamber enlargement as well as septal flattening suggest underlying pulmonary hypertension, although Doppler data suggests normal pulmonary artery pressures.There is no pericardial effusion. Small right pleural effusion. Compared to the prior study dated 08/13/16, the mitral valve findings are similar. The septal flattening and findings of RV pressure / volume overload are new. Allergies Coded Allergies: Oxycodone (Verified Adverse Reaction, Unknown, PROLONGED HICCUPS - RELIEVED WITH THORAZINE, 01/07/17) Social History Smoking Status: Never Smoker Hx Tobacco Use In Past Year?: No Hx Alcohol Use - Type And Amou: No Hx Substance Use - Type And Am: No Problem List Medical Problems: (1) CHF exacerbation Status: Acute (2) Hypotension Status: Acute Physical Exam Vital Signs Last Vital Signs Documentation Date Time Temp Pulse Resp B/P Pulse Ox O2 Delivery O2 Flow Rate FiO2 01/10/17 07:25 36.5 80 20 112/69 98 Nasal Cannula 3.0 Physical Exam Constitutional: Level of Distress: acutely ill, chronically ill Psychiatric: Mental Status: active & alert Orientation: to time, to place, to person Memory: recent memory normal, remote memory normal Head: normocephalic Eyes: Pupils: PERRLA Neck: pertinent finding (Normal JVP) Lungs: Respiratory effort: dyspneic Auscultation: deminished air movement, decreased breath sounds, expiratory wheezing, rhonchi, rales/crackles on the left, rales/crackles on the right Cardiovascular: Heart Auscultation: II/ LETICIA, irregular rate rhythm Abdomen: Bowel Sounds: normal Inspection & Palpation: distended Extremities: no cyanosis, no edema, no clubbing, pertinent finding ( excoriations. chronic stasis changes. 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 Appears mildly hypervolemic Chronic atrial fibrillation with a controlled ventricular response, prescribed chronic Coumadin anticoagulation EF previously preserved; TTE pending this admission. RECOMMENDATIONS/PLAN: Discontinue IV fluids ? Low dose furosemide this afternoon Continue other cardiac medications as presently prescribed; will likely need to gradually resume prior AV aurea blocking regimen as he recovers. CARDIOLOGY ATTENDING ADDENDUM: The patient was seen and personally examined. Agree with Jose Ramon Mcdonald PA-C's findings and plans as documented above with additions as noted below. S: more alert today, but still not himself. Exam:CV AF, rates 90-95 bpm, 2/6 SM Ext: no edema, chronic erythema Imp: as above. PlaN. IVF discontinued. Continue adding back his oral diuretic at home. He is on bumex 1 mg PO daily and spironolactone at home. Also his home metoprolol dose is 100 mg BID, he is on 50 mg BID at present due to transient lower heart rates. Continue coumadin, monitor platelet count. Laboratory Results Last 24 Hours Test 01/10/17 06:34 White Blood Count 8.81 K/uL Red Blood Count 4.12 M/uL Hemoglobin 10.3 g/dL Hematocrit 33.4 % Mean Corpuscular Volume 81.1 fL Mean Corpuscular Hemoglobin 25.0 pg Mean Corpuscular Hemoglobin Concent 30.8 g/dl RDW Standard Deviation 51.4 fL RDW Coefficient of Variation 17.5 % Platelet Count 99 K/uL Mean Platelet Volume 10.1 fL Platelet Estimate DECREASED Prothrombin Time 31.4 SECONDS Prothromb Time International Ratio 2.8 Sodium Level 138 mmol/L Potassium Level 3.6 mmol/L Chloride Level 108 mmol/L Carbon Dioxide Level 20 mmol/L Anion Gap 10.0 mmol/L Blood Urea Nitrogen 32 mg/dl Creatinine 1.40 mg/dl Est Creatinine Clear Calc Drug Dose 43.5 ml/min Estimated GFR () 52.7 Estimated GFR (Non- 45.5 BUN/Creatinine Ratio 23.1 Random Glucose 87 mg/dl Calcium Level 7.9 mg/dl Total Bilirubin 1.2 mg/dl Aspartate Amino Transf (AST/SGOT) 104 U/L Alanine Aminotransferase (ALT/SGPT) 182 U/L Alkaline Phosphatase 68 U/L Total Protein 5.4 gm/dl Albumin 2.6 gm/dl Globulin 2.8 gm/dl Albumin/Globulin Ratio 0.9
--- NOTE | 2017-01-10 12:24 | Progress Note ---
Internal Med Progress Note Date of Service: Jan 10, 2017. Provider Documentation: SUBJECTIVE: Patient is doing much better today. Sitting up and eating his lunch. Mental status- Improved, Awake, alert oriented x 2 C/o generalized body aches and pains and neck pain Denies any chest pain, SOB, does have cough with some sputum, no dizziness, localized weakness Tele- A fib with HR in 70s OBJECTIVE: Vital Signs-as noted below Exam: General-AAOX2, Not in acute distress Eyes-No icterus Neck-Supple Lungs-AEBE, no wheezing Heart-Irregularly irregular rhythm, Murmur + Abdomen-Soft, non tender, non distended, BS present Extremities-B/L Lower extremity - Chronic venous stasis changes, chronic erythema, dry skin + Neuro- AAOX3, grossly no focal deficits Lab data as noted below. ASSESSMENT & PLAN: Assessment and Plan : 86 year old male presents to the ED complaining of fall last evening. Patient reports laying on floor all night until friends checked on him. Found to be in Afib with RVR. Clinically deteriorated on 01/08/17 evening with hypotension, likely sepsis and responded to IVF. SEVERE SEPSIS : Resolving WBC 13k on presentation-now resolved, Lactic acid-elevated, Hypotension which responded to IVF, A fib with RVR Likely secondary to PNEUMONIA, RLL- Possibly aspiration pneumonia -S/P IV Fluid boluses, IVF - discontinued today -IV Zosyn (Day 3) -Work up- Repeat CXR - Slight improvement in bibasilar opacities, Blood cx x 2 - negative HYPOTENSION: Resolved Likely secondary to sepsis as above -BP dropped to 77/50s 01/08 evening and responded to IVF boluses and IVF -On Metoprolol, Verapamil with holding parameters, Digoxin discontinued -Monitor ATRIAL FIBRILLATION WITH RVR - Rate controlled Patient likely missed 2 meals and medications per him/Possible pneumonia RLL Tele on 01/08/17- showed 1-2 sec pauses -S/P IV Lopressor 15 mg / Lopressor 100 mg PO in ED -On Metoprolol, Verapamil with holding parameters. Discontinued digoxin per cardiology -Work up- TSH- normal; Troponin - 0.026, 0.036, 0.033 -Cardiology on board GIAN ON CKD STAGE 3-Improved Likely secondary to sepsis/hypotension- ATN -Baseline 1.2 -S/P IVF today -hold diuretics -Monitor METABOLIC ENCEPHALOPATHY- Resolving Likely secondary to sepsis -Per baseline: AAOX3 per family with some forgetfulness and memory losses -Mental status today: AAOX2, near baseline -Monitor FALL, AMBULATORY DYSFUNCTION /PROGRESSIVE FUNCTIONAL DECLINE Per family, he lives at [facility] by himself and past few weeks had been having multiple falls/Progressive functional decline -Fall precautions -PT/OT evaluations -[employer] consult for discharge planning - will need SNF vs Rehab on discharge MENINGIOMA - per CT scan likely meningioma, short term followup for possible contusion in setting of trauma recommended -repeat CT head done- artifact MILD LFT ELEVATION - Likely secondary to Sepsis -trend CALF PAIN/EDEMA -R/o DVT, has INR of 2 today, which is therapeutic -Venous duplex- negative for DVT HYPOTHYROIDISM -TSH normal -continue Synthroid DIASTOLIC CHF /VALVULAR HEART DISEASE (SEVERE MR) -Appears slightly dry -hold Bumex for GIAN /Sepsis -S/P IVF -Update Echo - Severe MR, Severe prolapse of posterior mitral valve PRESSURE ULCER Left-Stage III Right-Unstageable -Wound care on board. 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 Had a family meeting and per his advance directives -confirmed that he will be DNR/DNI. Goals of care discussed- okay with ICU, Vasopressors but DNR/DNI DISPO: PT/OT ordered Will need SNF VS REHAB, unable to take care of himself and will need rehab on discharge Vital Signs: Date Time Temp Pulse Resp B/P Pulse Ox O2 Delivery O2 Flow Rate FiO2 01/10/17 15:16 36.7 90 20 127/75 97 Nasal Cannula 3.0 01/10/17 12:00 Nasal Cannula 3.0 01/10/17 11:15 91 01/10/17 10:54 36.9 99 20 110/75 94 Room Air 01/10/17 08:00 98 Nasal Cannula 3.0 01/10/17 07:25 36.5 80 20 112/69 98 Nasal Cannula 3.0 01/10/17 04:04 36.9 81 22 119/49 95 Nasal Cannula 3.0 01/10/17 04:00 95 Nasal Cannula 3.0 01/10/17 00:19 36.5 79 23 94/74 98 Nasal Cannula 3.0 01/10/17 00:01 98 Nasal Cannula 3.0 01/09/17 20:00 37.0 85 14 138/85 98 Nasal Cannula 3.0 01/09/17 20:00 98 Nasal Cannula 3.0 Lab Results: Results Past 24 Hours Test 01/10/17 06:34 Range/Units White Blood Count 8.81 4.8-10.8 K/uL Red Blood Count 4.12 4.7-6.1 M/uL Hemoglobin 10.3 14.0-18.0 g/dL Hematocrit 33.4 42-52 % Mean Corpuscular Volume 81.1 80-100 fL Mean Corpuscular Hemoglobin 25.0 25-34 pg Mean Corpuscular Hemoglobin Concent 30.8 32-36 g/dl RDW Standard Deviation 51.4 36.4-46.3 fL RDW Coefficient of Variation 17.5 11.5-14.5 % Platelet Count 99 130-400 K/uL Mean Platelet Volume 10.1 7.4-10.4 fL Platelet Estimate DECREASED Prothrombin Time 31.4 9.0-12.0 SECONDS Prothromb Time International Ratio 2.8 0.9-1.1 Sodium Level 138 136-145 mmol/L Potassium Level 3.6 3.5-5.1 mmol/L Chloride Level 108 98-107 mmol/L Carbon Dioxide Level 20 21-32 mmol/L Anion Gap 10.0 3-11 mmol/L Blood Urea Nitrogen 32 7-18 mg/dl Creatinine 1.40 0.60-1.40 mg/dl Est Creatinine Clear Calc Drug Dose 43.5 ml/min Estimated GFR () 52.7 Estimated GFR (Non- 45.5 BUN/Creatinine Ratio 23.1 10-20 Random Glucose 87 70-99 mg/dl Calcium Level 7.9 8.5-10.1 mg/dl Total Bilirubin 1.2 0.2-1 mg/dl Aspartate Amino Transf (AST/SGOT) 104 15-37 U/L Alanine Aminotransferase (ALT/SGPT) 182 12-78 U/L Alkaline Phosphatase 68 45-117 U/L Total Protein 5.4 6.4-8.2 gm/dl Albumin 2.6 3.4-5.0 gm/dl Globulin 2.8 2.5-4.0 gm/dl Albumin/Globulin Ratio 0.9 0.9-2
[2017-01-10] MEDS: WARFARIN SOD 3 MG TAB PO SCH (17:13)
[2017-01-11] VITALS (10 sets, daily range): BP systolic 100–128; BP diastolic 67–78; PULSE 66–86; TEMP 36.3–37.3; O2SAT 93–98
[2017-01-11] MEDS: PIPERACILL/TAZOBAC IV 3.375 GM in DEXTROSE 5% 100ML 100 ML IV SCH ×2 (01:32→10:19)
[2017-01-11 05:46] LABS: HEMATOCRIT 34.2 % (42-52); MEAN CELL VOLUME 80.1 fL (80-100); MEAN CORPUSCULAR HEMOGLOBIN 24.6 pg (25-34); MEAN CORPUSCULAR HGB CONC 30.7 g/dl (32-36); RED BLOOD COUNT 4.27 M/uL (4.7-6.1); WHITE BLOOD COUNT 8.94 K/uL (4.8-10.8)
[2017-01-11 05:52] LABS: MEAN PLATELET VOLUME 9.7 fL (7.4-10.4); PLATELET COUNT 95 K/uL (130-400)
[2017-01-11 05:58] LABS: INR 2.9 (0.9-1.1); PROTHROMBIN TIME (PATIENT) 31.9 SECONDS (9.0-12.0)
[2017-01-11 06:56] LABS: CALCIUM 8.3 mg/dl (8.5-10.1); CREATININE 1.3 mg/dl (0.60-1.40); POTASSIUM 4.2 mmol/L (3.5-5.1)
[2017-01-11] MEDS: LEVOTHYROXINE 75 MCG TAB PO SCH (07:45)
[2017-01-11] MEDS: ASPIRIN 81 MG ECTAB PO SCH (07:45)
[2017-01-11] MEDS: POTASSIUM CHLORIDE 20 MEQ TABCR PO SCH (07:46)
[2017-01-11] MEDS: METOPROLOL TARTRATE 50 MG TAB PO SCH ×2 (07:46→20:29)
[2017-01-11] MEDS: PANTOprazole SOD 40 MG TAB PO SCH ×2 (07:47→20:29)
[2017-01-11] MEDS: VERAPAMIL HCL 120 MG TABCR PO SCH (07:47)
[2017-01-11] MEDS: EUCERIN CR 120 GM JAR EXT SCH ×2 (07:52→20:31)
--- NOTE | 2017-01-11 12:25 | Progress Note ---
Internal Med Progress Note Date of Service: Jan 11, 2017. Provider Documentation: SUBJECTIVE: Patient did aspirate yesterday and had bout of aggressive coughing. Mental status- Improved, Awake, alert oriented x 2, but some confusion overnight Denies any chest pain, SOB, does have cough with some sputum, no dizziness, localized weakness Tele- A fib with HR in 70s OBJECTIVE: Vital Signs-as noted below Exam: General-AAOX2, Not in acute distress Eyes-No icterus Neck-Supple Lungs-AEBE, no wheezing Heart-Irregularly irregular rhythm, Murmur + Abdomen-Soft, non tender, non distended, BS present Extremities-B/L Lower extremity - Chronic venous stasis changes, chronic erythema, dry skin + Neuro- AAOX3, grossly no focal deficits Lab data as noted below. ASSESSMENT & PLAN: Assessment and Plan : 86 year old male presents to the ED complaining of fall last evening. Patient reports laying on floor all night until friends checked on him. Found to be in Afib with RVR. Clinically deteriorated on 01/08/17 evening with hypotension, likely sepsis and responded to IVF. SEVERE SEPSIS : Resolved WBC 13k on presentation-now resolved, Lactic acid-elevated, Hypotension which responded to IVF, A fib with RVR Likely secondary to PNEUMONIA, RLL- Possible aspiration pneumonia -S/P IV Fluid boluses, IVF - discontinued on 01/09/17 -IV Zosyn (Day 3)--> change to Clindamycin TID today to cover for aspiration pneumonia -Work up- Repeat CXR - Slight improvement in bibasilar opacities, Blood cx x 2 - negative. Will repeat CXR in AM. HYPOTENSION: Resolved Likely secondary to sepsis as above -BP dropped to 77/50s 01/08 evening and responded to IVF boluses and IVF -On Metoprolol (half dose than at home), Verapamil with holding parameters, Digoxin discontinued -Monitor ATRIAL FIBRILLATION WITH RVR - Rate controlled Patient likely missed 2 meals and medications per him/Possible pneumonia RLL Tele on 01/08/17- showed 1-2 sec pauses -S/P IV Lopressor 15 mg / Lopressor 100 mg PO in ED -On Metoprolol (half dose than at home), Verapamil 120 mg with holding parameters. Discontinued digoxin per cardiology -Work up- TSH- normal; Troponin - 0.026, 0.036, 0.033 -Cardiology on board GIAN ON CKD STAGE 3-Improved Likely secondary to sepsis/hypotension- ATN -Baseline 1.2 -S/P IVF on 01/10/17 -Restart diuretics - Aldactone 25 mg, Bumex 1 mg daily as at home -Monitor METABOLIC ENCEPHALOPATHY- Resolving Likely secondary to sepsis -Per baseline: AAOX3 per family with some forgetfulness and memory losses -Mental status : AAOX2, near baseline, some confusion at night -Monitor FALL, AMBULATORY DYSFUNCTION /PROGRESSIVE FUNCTIONAL DECLINE Per family, he lives at [facility] by himself and past few weeks had been having multiple falls/Progressive functional decline -Fall precautions -PT/OT evaluations -Community Mental Health Worker consult for discharge planning - will need SNF vs Rehab on discharge MENINGIOMA - per CT scan likely meningioma, short term followup for possible contusion in setting of trauma recommended -repeat CT head done- artifact MILD LFT ELEVATION - Likely secondary to Sepsis -trend CALF PAIN/EDEMA -R/o DVT, has INR of 2 today, which is therapeutic -Venous duplex- negative for DVT HYPOTHYROIDISM -TSH normal -continue Synthroid DIASTOLIC CHF /VALVULAR HEART DISEASE (SEVERE MR) -Appears slightly dry -hold Bumex for GIAN /Sepsis -S/P IVF -Update Echo - Severe MR, Severe prolapse of posterior mitral valve PRESSURE ULCER Left-Stage III Right-Unstageable -Wound care on board. 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 For video swallow test on friday - Aspiration precautions DVT PROPHYLAXIS: Coumadin CODE STATUS: DNR/DNI per discussion with family Per Pedro Pablo langston (POA)/Bill - code status - DNR/DNI. Had a family meeting and per his advance directives -confirmed that he will be DNR/DNI. Goals of care discussed- okay with ICU, Vasopressors but DNR/DNI DISPOSITION : PT/OT ordered Will need SNF VS REHAB, unable to take care of himself and will need rehab on discharge Transfer to med-surg Discussed with family by bedside. Vital Signs: Date Time Temp Pulse Resp B/P Pulse Ox O2 Delivery O2 Flow Rate FiO2 01/11/17 12:00 Nasal Cannula 3.0 01/11/17 08:18 36.4 86 12 118/78 97 Nasal Cannula 3.0 01/11/17 08:00 Nasal Cannula 3.0 01/11/17 04:00 Nasal Cannula 3.0 01/11/17 04:00 36.6 66 21 109/73 97 Nasal Cannula 3.0 01/11/17 00:14 37.3 80 20 114/68 93 Nasal Cannula 3.0 01/11/17 00:00 Nasal Cannula 3.0 01/10/17 20:04 36.6 93 20 109/64 94 Room Air 01/10/17 20:00 Nasal Cannula 3.0 01/10/17 16:00 97 Nasal Cannula 3.0 01/10/17 15:16 36.7 90 20 127/75 97 Nasal Cannula 3.0 Lab Results: Results Past 24 Hours Test 01/11/17 05:35 Range/Units White Blood Count 8.94 4.8-10.8 K/uL Red Blood Count 4.27 4.7-6.1 M/uL Hemoglobin 10.5 14.0-18.0 g/dL Hematocrit 34.2 42-52 % Mean Corpuscular Volume 80.1 80-100 fL Mean Corpuscular Hemoglobin 24.6 25-34 pg Mean Corpuscular Hemoglobin Concent 30.7 32-36 g/dl RDW Standard Deviation 50.7 36.4-46.3 fL RDW Coefficient of Variation 17.4 11.5-14.5 % Platelet Count 95 130-400 K/uL Mean Platelet Volume 9.7 7.4-10.4 fL Nucleated RBC Absolute Count (auto) 0.07 0-0 K/uL Nucleated Red Blood Cells % 0.7 % Prothrombin Time 31.9 9.0-12.0 SECONDS Prothromb Time International Ratio 2.9 0.9-1.1 Sodium Level 140 136-145 mmol/L Potassium Level 4.2 3.5-5.1 mmol/L Chloride Level 110 98-107 mmol/L Carbon Dioxide Level 18 21-32 mmol/L Anion Gap 12.0 3-11 mmol/L Blood Urea Nitrogen 27 7-18 mg/dl Creatinine 1.30 0.60-1.40 mg/dl Est Creatinine Clear Calc Drug Dose 47.3 ml/min Estimated GFR () 57.7 Estimated GFR (Non- 49.8 BUN/Creatinine Ratio 21.0 10-20 Random Glucose 90 70-99 mg/dl Lactic Acid Level 1.5 0.4-2.0 mmol/L Calcium Level 8.3 8.5-10.1 mg/dl Total Bilirubin 1.4 0.2-1 mg/dl Aspartate Amino Transf (AST/SGOT) 64 15-37 U/L Alanine Aminotransferase (ALT/SGPT) 155 12-78 U/L Alkaline Phosphatase 65 45-117 U/L Total Protein 5.6 6.4-8.2 gm/dl Albumin 2.8 3.4-5.0 gm/dl Globulin 2.8 2.5-4.0 gm/dl Albumin/Globulin Ratio 1.0 0.9-2
[2017-01-11] MEDS: BUMETANIDE 1 MG TAB PO SCH (12:52)
[2017-01-11] MEDS: CLINDAMYCIN HCL 150 MG CAP PO SCH ×2 (12:53→20:29)
[2017-01-11] MEDS: LACTOBACILLUS ACIDOPHILUS (FLORANEX) TAB PO SCH (17:15)
[2017-01-11] MEDS: WARFARIN SOD 0.5 MG TAB PO SCH (17:18)
[2017-01-11] MEDS: SPIRONOLACTONE 25 MG TAB PO SCH (17:37)
--- NOTE | 2017-01-11 18:14 | DIAGNOSTIC IMAGING REPORT ---
CHEST ONE VIEW PORTABLE CLINICAL HISTORY: Shortness of breath COMPARISON STUDY: 01/06/2017 FINDINGS: The heart is enlarged. There are suspected bilateral pleural effusions with bibasal airspace opacities. There is mild central pulmonary vascular congestion.[ IMPRESSION: Cardiomegaly, bilateral pleural effusions, and bibasal airspace opacities, likely representing atelectasis or less likely focal edema. A pneumonia could appear similar but is felt to be statistically less likely Electronically signed by: Lj Hicks M.D. 01/11/2017 6:13 PM Dictated Date/Time: 01/11/2017 6:12 PM
[2017-01-11] MEDS ORDERED: FUROSEMIDE INJ 20 MG in SYRINGE 0 ML IV STA (19:23)
--- NOTE | 2017-01-11 19:23 | Progress Note ---
Progress Note Date of Service Jan 11, 2017. Progress Note Received a call that patient is more SOB./ On my evaluation, drowsy, but arousable, disoriented. Mild respiratory distress , using accessory muscles. SaO2 -98% ON 2 L, no change. CXR- Cardiomegaly, bilateral pleural effusions, and bibasal airspace opacities, likely representing atelectasis or less likely focal edema. A pneumonia could appear similar but is felt to be statistically less likely --Will give a dose of IV Lasix 20 mg as probably fluid overloaded --ABG ordered Family by bedside. Updated
[2017-01-11 19:49] LABS: ARTERIAL BLD GAS O2 SATURATION 97.2 % (90-95); ARTERIAL BLOOD GAS BASE EXCESS -7.5 mEq/L (-9-1.8); ARTERIAL BLOOD GAS HCO3 15 mmol/L (19-24); ARTERIAL BLOOD GAS PO2 92 mm/Hg (80-95); ARTERIAL BLOOD GAS pH 7.44 (7.35-7.45)
[2017-01-11 19:50] LABS: ALLEN TEST POS (POS); O2 ADMINISTRATION 3 L
[2017-01-12 00:01] VITALS: BP 114/75; PULSE 77; TEMP 36.5; O2SAT 98
[2017-01-12 06:14] LABS: HEMATOCRIT 35.3 % (42-52); MEAN CELL VOLUME 79.5 fL (80-100); MEAN CORPUSCULAR HEMOGLOBIN 24.8 pg (25-34); MEAN CORPUSCULAR HGB CONC 31.2 g/dl (32-36); RED BLOOD COUNT 4.44 M/uL (4.7-6.1); WHITE BLOOD COUNT 8.71 K/uL (4.8-10.8)
[2017-01-12 06:15] LABS: MEAN PLATELET VOLUME 10.3 fL (7.4-10.4); PLATELET COUNT 95 K/uL (130-400)
[2017-01-12] MEDS: LEVOTHYROXINE 75 MCG TAB PO SCH (06:31)
[2017-01-12 06:47] LABS: BUN/CREATININE RATIO 23.1 (10-20); CALCIUM 8.3 mg/dl (8.5-10.1); CREATININE 1.3 mg/dl (0.60-1.40)
[2017-01-12 07:44] VITALS: BP 111/72; PULSE 93; TEMP 36.4; O2SAT 98
[2017-01-12] MEDS: ASPIRIN 81 MG ECTAB PO SCH (07:53)
[2017-01-12] MEDS: VERAPAMIL HCL 120 MG TABCR PO SCH (07:53)
[2017-01-12] MEDS: CLINDAMYCIN HCL 150 MG CAP PO SCH ×3 (07:53→20:25)
[2017-01-12] MEDS: PANTOprazole SOD 40 MG TAB PO SCH ×2 (07:54→20:26)
[2017-01-12] MEDS: LACTOBACILLUS ACIDOPHILUS (FLORANEX) TAB PO SCH ×3 (07:54→17:07)
[2017-01-12] MEDS: METOPROLOL TARTRATE 50 MG TAB PO SCH ×2 (07:55→20:25)
[2017-01-12] MEDS: BUMETANIDE 1 MG TAB PO SCH (07:56)
[2017-01-12] MEDS: POTASSIUM CHLORIDE 20 MEQ TABCR PO SCH (07:56)
[2017-01-12] MEDS: SPIRONOLACTONE 25 MG TAB PO SCH (07:56)
[2017-01-12] MEDS: EUCERIN CR 120 GM JAR EXT SCH ×2 (07:57→20:26)
[2017-01-12] MEDS ORDERED: GUAIFENESIN SUGAR FREE 100 MG/5 ML UDC PO PRN (09:45)
--- NOTE | 2017-01-12 09:47 | Progress Note ---
Internal Med Progress Note Date of Service: Jan 12, 2017. Provider Documentation: SUBJECTIVE: Patient was more SOB yesterday night. Received a dose of IV lasix 20 mg. Doing better today, but cough with inability to bring up sputum causing distress Mental status- Improved, Awake, alert oriented x 2, but some confusion on and off Denies any chest pain, palpitations, no dizziness, localized weakness OBJECTIVE: Vital Signs-as noted below Exam: General-AAOX2, Distress secondary to excessive coughing, but no accessory muscle use Eyes-No icterus Neck-Supple Lungs-AEBE decreased, few crackles + no wheezing Heart-Irregularly irregular rhythm, Murmur + Abdomen-Soft, non tender, non distended, BS present Extremities-B/L Lower extremity - Chronic venous stasis changes, chronic erythema, dry skin + Neuro- AAOX3, grossly no focal deficits Lab data as noted below. ASSESSMENT & PLAN: Assessment and Plan : 86 year old male presents to the ED complaining of fall last evening. Patient reports laying on floor all night until friends checked on him. Found to be in Afib with RVR. Clinically deteriorated on 01/08/17 evening with hypotension, likely sepsis and responded to IVF. COUGH WITH EPISODE OF WORSENING SOB: Improved, but cough persistent Unable to bring up sputum. Did aspirate x 2 while in hospital--> diet changed to full liquid per speech therapist -Repeat CXR- on 01/11/17- Atelectasis, less likely pneumonia/congestion. ABG- repeated on 01/11/17- no acute ab noted -Mucinex BID, Robitussin PRN. Received an extra dose of IV Lasix 20 mg on 01/11/ due to worsening of SOB -Incentive spirometry encouraged SEVERE SEPSIS : Resolved WBC 13k on presentation-now resolved, Lactic acid-elevated, Hypotension which responded to IVF, A fib with RVR Likely secondary to PNEUMONIA, RLL- Possible aspiration pneumonia -S/P IV Fluid boluses, IVF - discontinued on 01/09/17 -S/P IV Zosyn (Day 3)--> changed to Clindamycin TID (Day 5 of antibx) to cover for aspiration pneumonia -Work up- Repeat CXR - Slight improvement in bibasilar opacities, Blood cx x 2 - negative. Repeat CXR on 01/11/17- atelectasis , less likely pneumonia/CHF HYPOTENSION: Resolved Likely secondary to sepsis as above -BP dropped to 77/50s 01/08 evening and responded to IVF boluses and IVF -On Metoprolol (half dose than at home), Verapamil with holding parameters, Digoxin discontinued -Monitor ATRIAL FIBRILLATION WITH RVR - Rate controlled Patient likely missed 2 meals and medications per him/Possible pneumonia RLL Tele on 01/08/17- showed 1-2 sec pauses -S/P IV Lopressor 15 mg / Lopressor 100 mg PO in ED -On Metoprolol (half dose than at home), Verapamil 120 mg with holding parameters. Discontinued digoxin per cardiology -Work up- TSH- normal; Troponin - 0.026, 0.036, 0.033 -Cardiology on board GIAN ON CKD STAGE 3 - Improved Likely secondary to sepsis/hypotension- ATN -Baseline 1.2 -S/P IVF on 01/10/17 -Restarted diuretics on 01/11/17 - Aldactone 25 mg, Bumex 1 mg daily as at home. Received an extra dose of IV Lasix 20 mg on 01/11/17 -Monitor METABOLIC ENCEPHALOPATHY- Resolving Likely secondary to sepsis -Per baseline: AAOX3 per family with some forgetfulness and memory losses -Mental status : AAOX2, near baseline, some confusion at night -Monitor FALL, AMBULATORY DYSFUNCTION /PROGRESSIVE FUNCTIONAL DECLINE Per family, he lives at [facility] by himself and past few weeks had been having multiple falls/Progressive functional decline -Fall precautions -PT/OT evaluations -E Commerce Architect consult for discharge planning - will need SNF vs Rehab on discharge MENINGIOMA - per CT scan likely meningioma, short term followup for possible contusion in setting of trauma recommended -repeat CT head done- artifact MILD LFT ELEVATION - Likely secondary to Sepsis -trending down CALF PAIN/EDEMA -R/o DVT, has INR of 2 today, which is therapeutic -Venous duplex- negative for DVT HYPOTHYROIDISM -TSH normal -continue Synthroid DIASTOLIC CHF /VALVULAR HEART DISEASE (SEVERE MR) -Appears slightly dry -held Bumex for GIAN /Sepsis and restarted on bumex 1 mg, aldactone as at home on 01/11 -S/P IVF -Update Echo - Severe MR, Severe prolapse of posterior mitral valve PRESSURE ULCER Left-Stage III Right-Unstageable -Wound care on board. Appreciate inputs HTN - -Continue with metoprolol, Verapamil 6mm NODULAR DENSITY -At left MCA bifurcation, incidental finding -nonemergent brain MRA recommended ANEMIA -hgb 11.6 on presentation, usually around 12 -follow H&H THROMBOCYTOPENIA -Stable -Monitor GERD -continue PPI BPH -continue Hytrin - decreased to 2 mg daily due to possible orthostatic hypotension on presentation NUTRITION - ASPIRATION +. Had 2 episodes of aspiration/choking while in hospital. - Swallow evaluation done - on dental cut soft, slippery diet. For video swallow test on friday - Aspiration precautions DVT PROPHYLAXIS: Coumadin CODE STATUS: DNR/DNI per discussion with family Per Pedro Pablo langston (POA)/Bill - code status - DNR/DNI. Had a family meeting and per his advance directives -confirmed that he will be DNR/DNI. Goals of care discussed- okay with ICU, Vasopressors but DNR/DNI DISPOSITION : PT/OT ordered Will need SNF VS REHAB, unable to take care of himself and will need rehab on discharge Discussed with family by bedside. Vital Signs: Date Time Temp Pulse Resp B/P Pulse Ox O2 Delivery O2 Flow Rate FiO2 01/12/17 07:44 36.4 93 22 111/72 98 Nasal Cannula 3.0 01/12/17 00:25 Nasal Cannula 3.0 01/12/17 00:01 36.5 77 18 114/75 98 Nasal Cannula 3.0 01/11/17 20:28 82 128/78 98 Nasal Cannula 3.0 01/11/17 20:02 Nasal Cannula 3.0 01/11/17 17:21 73 22 107/73 97 Room Air 3.0 01/11/17 16:55 98 Nasal Cannula 3.0 01/11/17 16:00 Nasal Cannula 3.0 01/11/17 15:52 36.5 80 28 108/75 98 Nasal Cannula 3.0 01/11/17 14:55 36.3 74 17 106/75 98 Nasal Cannula 3.0 01/11/17 13:59 36.7 83 22 96 3.0 01/11/17 13:06 36.7 83 22 100/67 96 Nasal Cannula 3.0 01/11/17 12:00 Nasal Cannula 3.0 Lab Results: Results Past 24 Hours Test 01/11/17 19:38 01/12/17 05:10 Range/Units Arterial Blood pH 7.44 7.35-7.45 Arterial Blood Partial Pressure CO2 23 35-46 mmHg Arterial Blood Partial Pressure O2 92 80-95 mm/Hg Arterial Blood HCO3 15 19-24 mmol/L Arterial Blood Oxygen Saturation 97.2 90-95 % Arterial Blood Base Excess -7.5 -9-1.8 mEq/L Arterial Blood Gas Delivery 3 L Cuco Test POS POS White Blood Count 8.71 4.8-10.8 K/uL Red Blood Count 4.44 4.7-6.1 M/uL Hemoglobin 11.0 14.0-18.0 g/dL Hematocrit 35.3 42-52 % Mean Corpuscular Volume 79.5 80-100 fL Mean Corpuscular Hemoglobin 24.8 25-34 pg Mean Corpuscular Hemoglobin Concent 31.2 32-36 g/dl RDW Standard Deviation 49.2 36.4-46.3 fL RDW Coefficient of Variation 17.3 11.5-14.5 % Platelet Count 95 130-400 K/uL Mean Platelet Volume 10.3 7.4-10.4 fL Nucleated RBC Absolute Count (auto) 0.06 0-0 K/uL Nucleated Red Blood Cells % 0.7 % Sodium Level 136 136-145 mmol/L Potassium Level 4.0 3.5-5.1 mmol/L Chloride Level 107 98-107 mmol/L Carbon Dioxide Level 20 21-32 mmol/L Anion Gap 9.0 3-11 mmol/L Blood Urea Nitrogen 30 7-18 mg/dl Creatinine 1.30 0.60-1.40 mg/dl Est Creatinine Clear Calc Drug Dose 47.3 ml/min Estimated GFR () 57.7 Estimated GFR (Non- 49.8 BUN/Creatinine Ratio 23.1 10-20 Random Glucose 86 70-99 mg/dl Calcium Level 8.3 8.5-10.1 mg/dl
[2017-01-12 12:41] VITALS: BP 123/76; PULSE 90; O2SAT 96
[2017-01-12] MEDS: WARFARIN SOD 0.5 MG TAB PO SCH (17:07)
[2017-01-12] MEDS: GUAIFENESIN 600 MG TABCR PO SCH (20:25)
[2017-01-12 20:34] VITALS: BP 99/64; PULSE 74; TEMP 36.3; O2SAT 100
[2017-01-13] VITALS (8 sets, daily range): BP systolic 97–140; BP diastolic 62–89; PULSE 74–99; TEMP 36.3–36.8; O2SAT 96–100
[2017-01-13] MEDS: LEVOTHYROXINE 200 MCG TAB PO SCH (05:58)
[2017-01-13 08:23] LABS: CREATININE 1.1 mg/dl (0.60-1.40)
[2017-01-13] MEDS: VERAPAMIL HCL 120 MG TABCR PO SCH (08:39)
[2017-01-13] MEDS: LACTOBACILLUS ACIDOPHILUS (FLORANEX) TAB PO SCH ×3 (08:39→16:52)
[2017-01-13] MEDS: METOPROLOL TARTRATE 50 MG TAB PO SCH ×2 (08:40→21:05)
[2017-01-13] MEDS: SPIRONOLACTONE 25 MG TAB PO SCH (08:40)
[2017-01-13] MEDS: CLINDAMYCIN HCL 150 MG CAP PO SCH ×3 (08:41→21:06)
[2017-01-13] MEDS: BUMETANIDE 1 MG TAB PO SCH (08:41)
[2017-01-13] MEDS: GUAIFENESIN 600 MG TABCR PO SCH ×2 (08:41→21:05)
[2017-01-13] MEDS: ASPIRIN 81 MG ECTAB PO SCH (08:42)
[2017-01-13] MEDS: PANTOprazole SOD 40 MG TAB PO SCH ×2 (08:42→21:07)
[2017-01-13] MEDS: POTASSIUM CHLORIDE 20 MEQ TABCR PO SCH (08:43)
[2017-01-13] MEDS: EUCERIN CR 120 GM JAR EXT SCH ×2 (08:43→21:06)
--- NOTE | 2017-01-13 10:03 | Progress Note ---
Internal Med Progress Note Date of Service: Jan 13, 2017. Provider Documentation: SUBJECTIVE : Patient is doing much better today. Awake, alert oriented x 3. Cough persists not able to bring up much sputum. Sleeps less at night and thus on and off day time sleepiness noted. Denies any chest pain, palpitations, no dizziness, localized weakness OBJECTIVE: Vital Signs-as noted below Exam: General-AAOX3, No distress Eyes-No icterus Neck-Supple Lungs-AEBE decreased, few crackles + no wheezing Heart-Irregularly irregular rhythm, Murmur + Abdomen-Soft, non tender, non distended, BS present Extremities-B/L Lower extremity - Chronic venous stasis changes, chronic erythema, dry skin + (Improved) Neuro- AAOX3, grossly no focal deficits Lab data as noted below. ASSESSMENT & PLAN: ASSESSMENT AND PLAN : 86 year old male presents to the ED complaining of fall last evening. Patient reports laying on floor all night until friends checked on him. Found to be in Atrial Fibrillation with RVR. Clinically deteriorated on 01/08/17 evening with hypotension, likely sepsis and responded to IVF. COUGH WITH EPISODE OF WORSENING SOB: Resolved, but cough persistent Unable to bring up sputum. Did aspirate x 2 while in hospital--> diet changed to full liquid per speech therapist -Repeat CXR- on 01/11/17- Atelectasis, less likely pneumonia/congestion. ABG- repeated on 01/11/17- no acute ab noted -Mucinex BID, Robitussin PRN added. -Incentive spirometry encouraged SEVERE SEPSIS : Resolved WBC 13k on presentation-now resolved, Lactic acid-elevated, Hypotension which responded to IVF, A fib with RVR Likely secondary to PNEUMONIA, RLL- Possible aspiration pneumonia -S/P IV Fluid boluses, IVF - discontinued on 01/09/17 -S/P IV Zosyn (Day 3)--> changed to Clindamycin TID (Day 6 of antibx) to cover for aspiration pneumonia -Work up- Repeat CXR - Slight improvement in bibasilar opacities, Blood cx x 2 - negative. Repeat CXR on 01/11/17- atelectasis , less likely pneumonia/CHF -Speech therapist - Aspiration +, Video swallow test today HYPOTENSION: Resolved Likely secondary to sepsis as above -BP dropped to 77/50s 01/08 evening and responded to IVF boluses and IVF -On Metoprolol (half dose than at home), Verapamil with holding parameters, Digoxin discontinued -Monitor ATRIAL FIBRILLATION WITH RVR - Rate controlled Patient likely missed 2 meals and medications per him/Possible pneumonia RLL Tele on 01/08/17- showed 1-2 sec pauses -S/P IV Lopressor 15 mg / Lopressor 100 mg PO in ED -On Metoprolol (half dose than at home due to hypotension), Verapamil 120 mg with holding parameters. Discontinued digoxin per cardiology -Anticoagulation - Coumadin with INR 2.9. Follow up INR today -Work up- TSH- normal; Troponin - 0.026, 0.036, 0.033 -Cardiology on board GIAN ON CKD STAGE 3 - Resolved Likely secondary to sepsis/hypotension- ATN -Baseline 1.2 -S/P IVF on 01/10/17 -Restarted diuretics on 01/11/17 - Aldactone 25 mg, Bumex 1 mg daily as at home. Received an extra dose of IV Lasix 20 mg on 01/11/17 -Monitor DIASTOLIC CHF /VALVULAR HEART DISEASE (SEVERE MR) -Appears slightly dry -held Bumex for GIAN /Sepsis and restarted on bumex 1 mg, aldactone as at home on 01/11 -S/P IVF -Update Echo - Severe MR, Severe prolapse of posterior mitral valve METABOLIC ENCEPHALOPATHY- Resolved Likely secondary to sepsis, day time sleepiness due to inadequate sleep at night as at home -Per baseline: AAOX3 per family with some forgetfulness and memory losses --> back to baseline today -Monitor FALL, AMBULATORY DYSFUNCTION /PROGRESSIVE FUNCTIONAL DECLINE Per family, he lives at [facility] by himself and past few weeks had been having multiple falls/Progressive functional decline -Fall precautions -PT/OT evaluations -Security Control Room Officer consult for discharge planning - will need SNF vs Rehab on discharge MENINGIOMA - per CT scan likely meningioma, short term followup for possible contusion in setting of trauma recommended -repeat CT head done- artifact MILD LFT ELEVATION - Likely secondary to Sepsis -trending down CALF PAIN/EDEMA -R/o DVT, has INR of 2 today, which is therapeutic -Venous duplex- negative for DVT HYPOTHYROIDISM -TSH normal -continue Synthroid PRESSURE ULCER Left-Stage III Right-Unstageable -Wound care on board. Appreciate inputs HTN - -Continue with metoprolol, Verapamil 6mm NODULAR DENSITY -At left MCA bifurcation, incidental finding -Nonemergent brain MRA recommended - to be done outpatietn ANEMIA -Hgb 11.6 on presentation, usually around 12 -follow H&H THROMBOCYTOPENIA -Stable -Monitor GERD -continue PPI BPH -continue Hytrin - decreased to 2 mg daily due to possible orthostatic hypotension on presentation NUTRITION - ASPIRATION +. Had 2 episodes of aspiration/choking while in hospital. - Swallow evaluation done - on dental cut soft, slippery diet--> later changed to full liquid per speech rx. For video swallow test today - Aspiration precautions DVT PROPHYLAXIS: Coumadin CODE STATUS: DNR/DNI per discussion with family Per Pedro Pablo langston (POA)/Bill - code status - DNR/DNI. Had a family meeting and per his advance directives -confirmed that he will be DNR/DNI. Goals of care discussed- okay with ICU, Vasopressors but DNR/DNI DISPOSITION : PT/OT ordered Will need SNF VS REHAB, unable to take care of himself and will need rehab on discharge Follow up- INR today Discussed with family by bedside. Vital Signs: Date Time Temp Pulse Resp B/P Pulse Ox O2 Delivery O2 Flow Rate FiO2 01/13/17 07:58 36.4 99 16 123/77 99 Nasal Cannula 3.0 01/13/17 03:59 36.3 90 18 116/80 100 3.0 01/13/17 00:20 Nasal Cannula 3.0 01/13/17 00:18 36.3 80 18 114/72 99 3.0 01/12/17 20:34 36.3 74 18 99/64 100 3.0 01/12/17 20:10 Nasal Cannula 3.0 01/12/17 16:00 Nasal Cannula 3.0 01/12/17 12:41 90 20 123/76 96 Lab Results: Results Past 24 Hours Test 01/12/17 19:57 01/13/17 07:32 Range/Units Bedside Glucose 132 70-99 mg/dl Creatinine 1.10 0.60-1.40 mg/dl Est Creatinine Clear Calc Drug Dose 54.8 ml/min Estimated GFR () 70.6 Estimated GFR (Non- 60.9
--- NOTE | 2017-01-13 12:00 | DIAGNOSTIC IMAGING REPORT ---
VIDEO SWALLOW HISTORY: Pneumonia. Suspected aspiration. TECHNIQUE: Video fluoroscopic evaluation of swallowing was performed in the AP and lateral projections by the speech pathology staff. The patient is fed nectar-thick and thin liquid barium, a barium coated wafer, and barium pudding. FLUOROSCOPY TIME: 2.5 minutes. COMPARISON STUDY: None. FINDINGS: When drinking thin liquid barium, there is premature leakage the level of piriform sinuses. There is transient penetration but no evidence of aspiration. There is a prominent cricopharyngeus impression.. There are multilevel degenerative changes present within the spine with anterior subluxation) 4-5 level. This is likely on a degenerative basis. IMPRESSION: 1. Transient penetration, but no evidence of aspiration. Prominent cricopharyngeus impression. 2. Please see the speech pathologist report for detailed findings and recommendations. Electronically signed by: Lj Hicks M.D. 01/13/2017 11:59 AM Dictated Date/Time: 01/13/2017 11:55 AM
[2017-01-13 13:14] LABS: INR 3.9 (0.9-1.1)
[2017-01-13] MEDS: BOOST VANILLA PO SCH ×2 (16:51)
[2017-01-13] MEDS ORDERED: ALUMINUM/MAGNESIUM SUSP 30 ML UDC PO PRN (19:45)
[2017-01-13] MEDS ORDERED: SIMETHICONE 80 MG CHEW PO PRN (19:45)
[2017-01-13] MEDS ORDERED: BISACODYL 10 MG SUPP PR STA (21:46)
[2017-01-14] MEDS: LEVOTHYROXINE 75 MCG TAB PO SCH (06:25)
[2017-01-14 06:51] VITALS: BP 98/55; PULSE 62; TEMP 36.8; O2SAT 98
[2017-01-14] MEDS: TRAMADOL HCL 50 MG TAB PO PRN ×2 (07:18→21:16)
[2017-01-14 07:47] VITALS: BP 115/74; PULSE 101; TEMP 36.8; O2SAT 98
[2017-01-14 07:47] LABS: INR 3.1 (0.9-1.1); PROTHROMBIN TIME (PATIENT) 34.5 SECONDS (9.0-12.0)
[2017-01-14 08:16] LABS: BUN/CREATININE RATIO 17.1 (10-20); CREATININE 0.97 mg/dl (0.60-1.40); POTASSIUM 3.5 mmol/L (3.5-5.1)
[2017-01-14] MEDS: POTASSIUM CHLORIDE 20 MEQ TABCR PO SCH (08:16)
[2017-01-14] MEDS: PANTOprazole SOD 40 MG TAB PO SCH ×2 (08:16→21:01)
[2017-01-14] MEDS: METOPROLOL TARTRATE 50 MG TAB PO SCH ×2 (08:16→21:00)
[2017-01-14] MEDS: BOOST VANILLA PO SCH ×4 (08:16→16:36)
[2017-01-14] MEDS: VERAPAMIL HCL 120 MG TABCR PO SCH (08:17)
[2017-01-14] MEDS: BUMETANIDE 1 MG TAB PO SCH (08:17)
[2017-01-14] MEDS: CLINDAMYCIN HCL 150 MG CAP PO SCH ×3 (08:17→21:00)
[2017-01-14] MEDS: ASPIRIN 81 MG ECTAB PO SCH (08:17)
[2017-01-14] MEDS: SPIRONOLACTONE 25 MG TAB PO SCH (08:17)
[2017-01-14] MEDS: LACTOBACILLUS ACIDOPHILUS (FLORANEX) TAB PO SCH ×3 (08:17→16:36)
[2017-01-14] MEDS: GUAIFENESIN 600 MG TABCR PO SCH ×2 (08:17→21:00)
[2017-01-14] MEDS: EUCERIN CR 120 GM JAR EXT SCH ×2 (08:18→21:04)
[2017-01-14] MEDS ORDERED: LIDODERM (LIDOCAINE) PATCH 5% TD ONE (11:42)
[2017-01-14] MEDS ORDERED: MoRPHine SULFATE 4 MG/ML 1 ML CARP\\VIAL IV PRN (11:45)
--- NOTE | 2017-01-14 12:14 | Progress Note ---
Medicine Progress Note Date & Time of Visit: Jan 14, 2017 at 11:47. Subjective seen with friend at bedside main symptom is right wrist pain- started last night, worse with movement denies chest pain, dyspnea no other symptoms Objective Last 8 Hrs Date Time Temp Pulse Resp B/P Pulse Ox O2 Delivery O2 Flow Rate FiO2 01/14/17 08:00 Nasal Cannula 3.0 01/14/17 07:47 36.8 101 18 115/74 98 Room Air 01/14/17 06:51 36.8 62 16 98/55 98 Room Air Physical Exam: General- oriented x 3, not in distress, speaks in sentences with no effort Eyes- anicteric Neck- supple, no JVD Lungs- clear breath sounds bilaterally Heart- normal rate, regular rhythm; (+) grade 3/6 murmur Abdomen- normal bowel sounds, soft, nontender Extremities- right hand/wrist: (+) edema, mild warmth, ,moderate tenderness , no warmth, very limited ROM due to pain mild pretibial edema, no calf tenderness; peripheral pulses intact Neuro- alert, oriented x 3; no gross deficits Skin- warm & dry Laboratory Results: Last 24 Hours Test 01/13/17 12:45 01/14/17 07:10 Prothrombin Time 44.0 SECONDS 34.5 SECONDS Prothromb Time International Ratio 3.9 3.1 Sodium Level 140 mmol/L Potassium Level 3.5 mmol/L Chloride Level 105 mmol/L Carbon Dioxide Level 24 mmol/L Anion Gap 11.0 mmol/L Blood Urea Nitrogen 17 mg/dl Creatinine 0.97 mg/dl Est Creatinine Clear Calc Drug Dose 62.1 ml/min Estimated GFR () 82.2 Estimated GFR (Non- 70.9 BUN/Creatinine Ratio 17.1 Random Glucose 77 mg/dl Calcium Level 8.0 mg/dl Assessment & Plan 86 year old male with history of A fib on coumadin, CHF Diastolic Typpe and Severe MR, Hypertension, Hypothyroidism presenting with fall. RIGHT WRIST PAIN check xray of the hand Lidoderm Patch PRN Morphine (has allergy to percocet, on coumadin so will avoid NSAIDs) Ice pack Ortho consult COUGH WITH EPISODE OF WORSENING SOB: Resolved - Did aspirate x 2 while in hospital--> diet changed to full liquid per speech therapist -Repeat CXR- on 01/11/17- Atelectasis, less likely pneumonia/congestion. ABG- repeated on 01/11/17- no acute ab noted -Mucinex BID, Robitussin PRN added. -Incentive spirometry SEVERE SEPSIS SECONDARY : Resolved Patient reports laying on floor all night until friends checked on him. Found to be in Atrial Fibrillation with RVR. Clinically deteriorated on 01/08/17 evening with hypotension, likely sepsis and responded to IVF. WBC 13k on presentation-now resolved, Lactic acid-elevated, Hypotension which responded to IVF, A fib with RVR Likely secondary to PNEUMONIA, RLL- Possible aspiration pneumonia -S/P IV Fluid boluses, IVF - discontinued on 01/09/17 -S/P IV Zosyn (Day 3)--> changed to Clindamycin TID (Day 7 of antibx) to cover for aspiration pneumonia -Work up- Repeat CXR - Slight improvement in bibasilar opacities, Blood cx x 2 - negative. Repeat CXR on 01/11/17- atelectasis , less likely pneumonia/CHF -Speech therapist - s/p Video Swallow: (+) Dysphagia, on Pureed diet, tolerating well HYPOTENSION: Resolved Likely secondary to sepsis as above - responded to IVF boluses and IVF -On Metoprolol (half dose than at home), Verapamil with holding parameters, Digoxin discontinued - BP stable ATRIAL FIBRILLATION WITH RVR - Rate controlled Patient likely missed 2 meals and medications per him/Possible pneumonia RLL -Work up- TSH- normal; Troponin - 0.026, 0.036, 0.033 -On Metoprolol (half dose than at home due to hypotension), Verapamil 120 mg with holding parameters. Discontinued digoxin per cardiology INR 3.1, hold coumadin -Cardiology on board GIAN ON CKD STAGE 3 - Resolved Likely secondary to sepsis/hypotension- ATN -Baseline 1.2 - usual Bumex and Aldactone resumed DIASTOLIC CHF /VALVULAR HEART DISEASE (SEVERE MR) -held Bumex for GIAN /Sepsis and restarted on bumex 1 mg, aldactone as at home on 01/11 -S/P IVF -Update Echo - Severe MR, Severe prolapse of posterior mitral valve METABOLIC ENCEPHALOPATHY- Resolved Likely secondary to sepsis, day time sleepiness due to inadequate sleep at night as at home -Per baseline: AAOX3 per family with some forgetfulness and memory losses FALL, AMBULATORY DYSFUNCTION /PROGRESSIVE FUNCTIONAL DECLINE Per family, he lives at [facility] by himself and past few weeks had been having multiple falls/Progressive functional decline -Fall precautions -PT/OT evaluations -Internet Database Specialist consult for discharge planning - awaiting acceptance to SNF MENINGIOMA - per CT scan likely meningioma, short term followup for possible contusion in setting of trauma recommended -repeat CT head done- artifact MILD LFT ELEVATION Likely secondary to Sepsis -trending down CALF PAIN/EDEMA -Venous duplex- negative for DVT HYPOTHYROIDISM -TSH normal -continue Synthroid PRESSURE ULCER Left-Stage III Right-Unstageable -Wound care on board HTN - -Continue with metoprolol, Verapamil 6mm NODULAR DENSITY -At left MCA bifurcation, incidental finding -Nonemergent brain MRA recommended - to be done outpatient ANEMIA -Hgb 11.6 on presentation, usually around 12 -follow H&H THROMBOCYTOPENIA -Stable -Monitor GERD -continue PPI BPH -continue Hytrin - decreased to 2 mg daily due to possible orthostatic hypotension on presentation NUTRITION - ASPIRATION +. Had 2 episodes of aspiration/choking while in hospital. - Swallow evaluation done - on dental cut soft, slippery diet--> later changed to full liquid per speech rx s/p Video swallow test (+) aspiration, now on pureed diet - Aspiration precautions DVT PROPHYLAXIS: Coumadin CODE STATUS: DNR/DNI per discussion with family Per Pedro Pablo langston (POA)/Bill - code status - DNR/DNI. Had a family meeting and per his advance directives -confirmed that he will be DNR/DNI. Goals of care discussed- okay with ICU, Vasopressors but DNR/DNI DISPOSITION : PT/OT ordered Will need SNF VS REHAB, unable to take care of himself and will need rehab on discharge Current Inpatient Medications: Current Inpatient Medications Medications (Trade) Dose Ordered Sig/Lorie Route Start Time Stop Time Status Last Admin Dose Admin Acetaminophen (Tylenol Tab) 650 mg Q4H PRN PO 01/07/17 22:15 02/06/17 22:14 Ondansetron HCl (Zofran Inj) 4 mg Q6H PRN IV 01/07/17 22:15 02/06/17 22:14 Nitroglycerin (Nitrostat Tab) 0.4 mg UD PRN SL 01/07/17 22:15 02/06/17 22:14 Aspirin (Ecotrin Tab) 81 mg DAILY PO 01/08/17 09:00 02/07/17 08:59 01/14/17 08:17 81 MG Levothyroxine Sodium (Synthroid Tab) 225 mcg SuTuThSa@0700 PO 01/09/17 07:00 02/08/17 07:00 01/14/17 06:25 225 MCG Levothyroxine Sodium (Synthroid Tab) 200 mcg MoWeFr@0600 PO 01/08/17 06:00 02/07/17 05:59 01/13/17 05:58 200 MCG Potassium Chloride (Klor-Con Tab) 20 meq QAM PO 01/08/17 09:00 02/07/17 08:59 01/14/17 08:16 20 MEQ Tramadol HCl (Ultram Tab) 50 mg DAILY PRN PO 01/07/17 22:30 02/06/17 22:29 01/14/17 07:18 50 MG Verapamil HCl (Calan-Sr Tab) 120 mg QAM PO 01/08/17 09:00 01/14/17 08:17 120 MG Warfarin Sodium (Coumadin Tab) 1.5 mg SuTuThSa@1600 PO 01/09/17 16:00 02/08/17 15:59 Future Hold 01/12/17 17:07 1.5 MG Warfarin Sodium (Coumadin Tab) 3 mg MoWeFr@1600 PO 01/08/17 16:00 02/07/17 15:59 Future Hold 01/10/17 17:13 3 MG Pantoprazole Sodium (Protonix Tab) 40 mg BID PO 01/08/17 09:00 02/07/17 08:59 01/14/17 08:16 40 MG Metoprolol Tartrate (Lopressor Iv) 5 mg Q6H PRN IV 01/07/17 22:30 02/06/17 22:29 Polyethylene (Miralax Powder Packet) 17 gm DAILY PRN PO 01/07/17 22:45 02/06/17 22:44 Metoprolol Tartrate (Lopressor Tab) 50 mg BID PO 01/08/17 21:00 02/07/17 20:59 01/14/17 08:16 50 MG Terazosin HCl (Hytrin Cap) 2 mg QPM PO 01/09/17 21:00 02/08/17 20:59 01/13/17 21:06 2 MG Multi-Ingredient Ointment (Eucerin Unscented Cr) 1 appln BID EXT 01/09/17 21:00 02/08/17 20:59 01/14/17 08:18 1 APPLN Clindamycin HCl (Cleocin Cap) 150 mg TID PO 01/11/17 14:00 01/18/17 13:59 01/14/17 08:17 150 MG Lactobacillus Acidophilus (Floranex Tab) 4 tab TIDM PO 01/11/17 16:45 02/10/17 16:44 01/14/17 08:17 4 TAB Bumetanide (Bumex Tab) 1 mg DAILY PO 01/11/17 12:30 02/10/17 12:29 01/14/17 08:17 1 MG Spironolactone (Aldactone Tab) 25 mg DAILY PO 01/11/17 12:30 02/10/17 12:29 01/14/17 08:17 25 MG Guaifenesin (Mucinex Contr Rel Tab) 600 mg Q12 PO 01/12/17 21:00 02/11/17 20:59 01/14/17 08:17 600 MG Guaifenesin (Robitussin Sugar Free Syrup) 100 mg Q6H PRN PO 01/12/17 09:45 02/11/17 09:44 01/13/17 08:42 100 MG Enteral Nutritional Formula (Boost) 1 can BIDM PO 01/13/17 17:00 02/12/17 16:59 01/14/17 08:16 1 CAN Simethicone (Mylicon Chew Tab) 80 mg Q6H PRN PO 01/13/17 19:45 02/12/17 19:44 01/13/17 21:05 80 MG Al Hydroxide/Mg Hydroxide (Maalox Susp) 30 ml Q6H PRN PO 01/13/17 19:45 02/12/17 19:44 01/13/17 20:07 30 ML
--- NOTE | 2017-01-14 14:00 | DIAGNOSTIC IMAGING REPORT ---
HAND MIN 3 VIEWS ROUTINE CLINICAL HISTORY: Right hand pain. Right wrist pain. COMPARISON: Right hand radiographs August 14, 2016. FINDINGS: There is widening of the scapholunate interval, measuring 5 mm. This is unchanged since exam of August 14, 2016. There is narrowing of the radiocarpal joint. There is marked joint space narrowing with osteophytosis within the distal interphalangeal joints of the second and third digits. There is moderate arthritis within several additional articulations. No acute fracture or suspicious lesion is identified. IMPRESSION: 1. No acute fracture or dislocation of the right hand. 2. 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 3. No change in widening of the scapholunate interval and narrowing of the radiocarpal articulation. Electronically signed by: Arsh Narayanan M.D. 01/14/2017 1:59 PM Dictated Date/Time: 01/14/2017 1:57 PM
[2017-01-14 15:00] VITALS: BP 112/77; PULSE 110; TEMP 36.7; O2SAT 98
[2017-01-14 23:22] VITALS: BP 134/69; PULSE 83; TEMP 36.4; O2SAT 92
[2017-01-15] MEDS: LEVOTHYROXINE 200 MCG TAB PO SCH (05:39)
[2017-01-15 07:56] VITALS: BP 90/60; PULSE 100; TEMP 36.8; O2SAT 94
[2017-01-15 08:19] VITALS: O2SAT 95
[2017-01-15] MEDS: PANTOprazole SOD 40 MG TAB PO SCH ×2 (08:37→20:48)
[2017-01-15] MEDS: SPIRONOLACTONE 25 MG TAB PO SCH (08:37)
[2017-01-15] MEDS: BUMETANIDE 1 MG TAB PO SCH (08:37)
[2017-01-15] MEDS: VERAPAMIL HCL 120 MG TABCR PO SCH (08:38)
[2017-01-15] MEDS: POTASSIUM CHLORIDE 20 MEQ TABCR PO SCH (08:38)
[2017-01-15] MEDS: CLINDAMYCIN HCL 150 MG CAP PO SCH ×2 (08:38→14:27)
[2017-01-15] MEDS: LACTOBACILLUS ACIDOPHILUS (FLORANEX) TAB PO SCH ×3 (08:38→16:36)
[2017-01-15] MEDS: ASPIRIN 81 MG ECTAB PO SCH (08:38)
[2017-01-15] MEDS: GUAIFENESIN 600 MG TABCR PO SCH ×2 (08:38→20:48)
[2017-01-15] MEDS: LIDODERM (LIDOCAINE) PATCH 5% TD SCH (08:39)
[2017-01-15] MEDS: EUCERIN CR 120 GM JAR EXT SCH ×2 (08:39→20:44)
[2017-01-15] MEDS: METOPROLOL TARTRATE 50 MG TAB PO SCH ×2 (08:39→20:49)
[2017-01-15] MEDS: BOOST VANILLA PO SCH ×4 (08:41→16:35)
[2017-01-15 12:09] LABS: BASO % 0.4 %; BASO ABS # 0.04 K/uL (0-0.2); COMPLETE YES; EOS % 2.5 %; HEMATOCRIT 35.1 % (42-52); IG% 0.3 %; LYMPH ABS # 0.94 K/uL (1.2-3.4); MEAN CELL VOLUME 79.4 fL (80-100); MEAN CORPUSCULAR HEMOGLOBIN 24.7 pg (25-34); MEAN CORPUSCULAR HGB CONC 31.1 g/dl (32-36); MEAN PLATELET VOLUME 9.9 fL (7.4-10.4); MONO % 10.9 %; NEUT % 75.9 %; PLATELET COUNT 126 K/uL (130-400); RED BLOOD COUNT 4.42 M/uL (4.7-6.1); WHITE BLOOD COUNT 9.43 K/uL (4.8-10.8)
[2017-01-15 12:19] LABS: PROTHROMBIN TIME (PATIENT) 21.5 SECONDS (9.0-12.0)
[2017-01-15 13:00] LABS: BUN/CREATININE RATIO 18.8 (10-20); CALCIUM 8.2 mg/dl (8.5-10.1); CREATININE 0.96 mg/dl (0.60-1.40); POTASSIUM 3.9 mmol/L (3.5-5.1)
[2017-01-15 15:53] VITALS: BP 119/84; PULSE 88; TEMP 36.5; O2SAT 94
--- NOTE | 2017-01-15 16:11 | Progress Note ---
Medicine Progress Note Date & Time of Visit: Jan 15, 2017 at 16:04. Subjective patient states he feels somewhat better today right hand pain improving denies cough, dyspnea, palpitations no abdominal pain, nausea/vomiting no other symptoms Objective Last 8 Hrs Date Time Temp Pulse Resp B/P Pulse Ox O2 Delivery O2 Flow Rate FiO2 01/15/17 15:53 36.5 88 20 119/84 94 01/15/17 08:19 95 Nasal Cannula 2.0 Physical Exam: General- oriented x 3, not in distress, speaks in sentences with no effort Eyes- anicteric Neck- supple, no JVD Lungs- clear breath sounds bilaterally Heart- normal rate, regular rhythm; (+) grade 3/6 murmur Abdomen- normal bowel sounds, soft, nontender Extremities- right hand/wrist: (+) mild edema, mild warmth, ,mild tenderness , no warmth, limited ROM due to pain mild pretibial edema, no calf tenderness; peripheral pulses intact Neuro- alert, oriented x 3; no gross deficits Skin- warm & dry Laboratory Results: Last 24 Hours Test 01/15/17 08:23 01/15/17 12:15 White Blood Count 9.43 K/uL Red Blood Count 4.42 M/uL Hemoglobin 10.9 g/dL Hematocrit 35.1 % Mean Corpuscular Volume 79.4 fL Mean Corpuscular Hemoglobin 24.7 pg Mean Corpuscular Hemoglobin Concent 31.1 g/dl Platelet Count 126 K/uL Mean Platelet Volume 9.9 fL Neutrophils (%) (Auto) 75.9 % Lymphocytes (%) (Auto) 10.0 % Monocytes (%) (Auto) 10.9 % Eosinophils (%) (Auto) 2.5 % Basophils (%) (Auto) 0.4 % Neutrophils # (Auto) 7.15 K/uL Lymphocytes # (Auto) 0.94 K/uL Monocytes # (Auto) 1.03 K/uL Eosinophils # (Auto) 0.24 K/uL Basophils # (Auto) 0.04 K/uL RDW Standard Deviation 50.2 fL RDW Coefficient of Variation 17.3 % Immature Granulocyte % (Auto) 0.3 % Immature Granulocyte # (Auto) 0.03 K/uL Nucleated RBC Absolute Count (auto) 0.02 K/uL Nucleated Red Blood Cells % 0.2 % Prothrombin Time 21.5 SECONDS Prothromb Time International Ratio 2.0 Sodium Level 136 mmol/L Potassium Level 3.9 mmol/L Chloride Level 101 mmol/L Carbon Dioxide Level 26 mmol/L Anion Gap 9.0 mmol/L Blood Urea Nitrogen 18 mg/dl Creatinine 0.96 mg/dl Est Creatinine Clear Calc Drug Dose 61.9 ml/min Estimated GFR () 83.2 Estimated GFR (Non- 71.8 BUN/Creatinine Ratio 18.8 Random Glucose 113 mg/dl Calcium Level 8.2 mg/dl Assessment & Plan 86 year old male with history of A fib on coumadin, CHF Diastolic Typpe and Severe MR, Hypertension, Hypothyroidism presenting with fall. RIGHT WRIST PAIN check xray of the hand: no fracture Lidoderm Patch PRN Morphine (has allergy to percocet, on coumadin so will avoid NSAIDs) Ice pack Ortho consult, awaiting recommendations - improving overall continue above management COUGH WITH EPISODE OF WORSENING SOB: Resolved -Did aspirate x 2 while in hospital--> diet changed to full liquid per speech therapist -Repeat CXR- on 01/11/17- Atelectasis, less likely pneumonia/congestion. ABG- repeated on 01/11/17- no acute ab noted -Mucinex BID, Robitussin PRN added. -Incentive spirometry - will advance diet today SEVERE SEPSIS SECONDARY : Resolved Patient reports laying on floor all night until friends checked on him. Found to be in Atrial Fibrillation with RVR. Clinically deteriorated on 01/08/17 evening with hypotension, likely sepsis and responded to IVF. WBC 13k on presentation-now resolved, Lactic acid-elevated, Hypotension which responded to IVF, A fib with RVR Likely secondary to PNEUMONIA, RLL- Possible aspiration pneumonia -S/P IV Fluid boluses, IVF - discontinued on 01/09/17 -S/P IV Zosyn (Day 3)--> changed to Clindamycin TID (Day 8 of antibx) to cover for aspiration pneumonia -Work up- Repeat CXR - Slight improvement in bibasilar opacities, Blood cx x 2 - negative. Repeat CXR on 01/11/17- atelectasis , less likely pneumonia/CHF -Speech therapist - s/p Video Swallow: (+) Dysphagia, on Pureed diet, tolerating well HYPOTENSION: Resolved Likely secondary to sepsis as above - responded to IVF boluses and IVF -On Metoprolol (half dose than at home), Verapamil with holding parameters, Digoxin discontinued - BP stable ATRIAL FIBRILLATION WITH RVR - Rate controlled Patient likely missed 2 meals and medications per him/Possible pneumonia RLL -Work up- TSH- normal; Troponin - 0.026, 0.036, 0.033 -On Metoprolol (half dose than at home due to hypotension), Verapamil 120 mg with holding parameters. Discontinued digoxin per cardiology INR 2, resume coumadin -Cardiology on board GIAN ON CKD STAGE 3 - Resolved Likely secondary to sepsis/hypotension- ATN -Baseline 1.2 - usual Bumex and Aldactone resumed DIASTOLIC CHF /VALVULAR HEART DISEASE (SEVERE MR) -held Bumex for GIAN /Sepsis and restarted on bumex 1 mg, aldactone as at home on 01/11 -S/P IVF -Update Echo - Severe MR, Severe prolapse of posterior mitral valve METABOLIC ENCEPHALOPATHY- Resolved Likely secondary to sepsis, day time sleepiness due to inadequate sleep at night as at home -Per baseline: AAOX3 per family with some forgetfulness and memory losses FALL, AMBULATORY DYSFUNCTION /PROGRESSIVE FUNCTIONAL DECLINE Per family, he lives at [facility] by himself and past few weeks had been having multiple falls/Progressive functional decline -Fall precautions -PT/OT evaluations -Tuyere Fitter consult for discharge planning MENINGIOMA - per CT scan likely meningioma, short term followup for possible contusion in setting of trauma recommended - repeat CT head done- artifact MILD LFT ELEVATION Likely secondary to Sepsis -trending down CALF PAIN/EDEMA -Venous duplex- negative for DVT HYPOTHYROIDISM -TSH normal -continue Synthroid PRESSURE ULCER Left-Stage III Right-Unstageable -Wound care on board HTN - -Continue with metoprolol, Verapamil 6mm NODULAR DENSITY -At left MCA bifurcation, incidental finding -Nonemergent brain MRA recommended - to be done outpatient ANEMIA -Hgb 11.6 on presentation, usually around 12 -follow H&H THROMBOCYTOPENIA -Stable -Monitor GERD -continue PPI BPH -continue Hytrin - decreased to 2 mg daily due to possible orthostatic hypotension on presentation NUTRITION - ASPIRATION +. Had 2 episodes of aspiration/choking while in hospital. - Swallow evaluation done - on dental cut soft, slippery diet--> later changed to full liquid per speech rx s/p Video swallow test (+) aspiration, now on pureed diet - Aspiration precautions DVT PROPHYLAXIS: Coumadin CODE STATUS: DNR/DNI per discussion with family Per kian Pedro Pablo (POA)/Bill - code status - DNR/DNI. Had a family meeting and per his advance directives -confirmed that he will be DNR/DNI. Goals of care discussed- okay with ICU, Vasopressors but DNR/DNI DISPOSITION : PT/OT ordered Will need SNF VS REHAB, unable to take care of himself and will need rehab on discharge Current Inpatient Medications: Current Inpatient Medications Medications (Trade) Dose Ordered Sig/Lorie Route Start Time Stop Time Status Last Admin Dose Admin Acetaminophen (Tylenol Tab) 650 mg Q4H PRN PO 01/07/17 22:15 02/06/17 22:14 Ondansetron HCl (Zofran Inj) 4 mg Q6H PRN IV 01/07/17 22:15 02/06/17 22:14 Nitroglycerin (Nitrostat Tab) 0.4 mg UD PRN SL 01/07/17 22:15 02/06/17 22:14 Aspirin (Ecotrin Tab) 81 mg DAILY PO 01/08/17 09:00 02/07/17 08:59 01/15/17 08:38 81 MG Levothyroxine Sodium (Synthroid Tab) 225 mcg SuTuThSa@0700 PO 01/09/17 07:00 02/08/17 07:00 01/14/17 06:25 225 MCG Levothyroxine Sodium (Synthroid Tab) 200 mcg MoWeFr@0600 PO 01/08/17 06:00 02/07/17 05:59 01/15/17 05:39 200 MCG Potassium Chloride (Klor-Con Tab) 20 meq QAM PO 01/08/17 09:00 02/07/17 08:59 01/15/17 08:38 20 MEQ Tramadol HCl (Ultram Tab) 50 mg DAILY PRN PO 01/07/17 22:30 02/06/17 22:29 01/14/17 21:16 50 MG Verapamil HCl (Calan-Sr Tab) 120 mg QAM PO 01/08/17 09:00 01/15/17 08:38 120 MG Warfarin Sodium (Coumadin Tab) 1.5 mg SuTuThSa@1600 PO 01/09/17 16:00 02/08/17 15:59 Future Hold 01/12/17 17:07 1.5 MG Warfarin Sodium (Coumadin Tab) 3 mg MoWeFr@1600 PO 01/08/17 16:00 02/07/17 15:59 Future Hold 01/10/17 17:13 3 MG Pantoprazole Sodium (Protonix Tab) 40 mg BID PO 01/08/17 09:00 02/07/17 08:59 01/15/17 08:37 40 MG Metoprolol Tartrate (Lopressor Iv) 5 mg Q6H PRN IV 01/07/17 22:30 02/06/17 22:29 Polyethylene (Miralax Powder Packet) 17 gm DAILY PRN PO 01/07/17 22:45 02/06/17 22:44 Metoprolol Tartrate (Lopressor Tab) 50 mg BID PO 01/08/17 21:00 02/07/17 20:59 01/14/17 21:00 50 MG Terazosin HCl (Hytrin Cap) 2 mg QPM PO 01/09/17 21:00 02/08/17 20:59 01/14/17 21:00 2 MG Multi-Ingredient Ointment (Eucerin Unscented Cr) 1 appln BID EXT 01/09/17 21:00 02/08/17 20:59 01/15/17 08:39 1 APPLN Clindamycin HCl (Cleocin Cap) 150 mg TID PO 01/11/17 14:00 01/18/17 13:59 01/15/17 14:27 150 MG Lactobacillus Acidophilus (Floranex Tab) 4 tab TIDM PO 01/11/17 16:45 02/10/17 16:44 01/15/17 11:42 4 TAB Bumetanide (Bumex Tab) 1 mg DAILY PO 01/11/17 12:30 02/10/17 12:29 01/15/17 08:37 1 MG Spironolactone (Aldactone Tab) 25 mg DAILY PO 01/11/17 12:30 02/10/17 12:29 01/15/17 08:37 25 MG Guaifenesin (Mucinex Contr Rel Tab) 600 mg Q12 PO 01/12/17 21:00 02/11/17 20:59 01/15/17 08:38 600 MG Guaifenesin (Robitussin Sugar Free Syrup) 100 mg Q6H PRN PO 01/12/17 09:45 02/11/17 09:44 01/13/17 08:42 100 MG Enteral Nutritional Formula (Boost) 1 can BIDM PO 01/13/17 17:00 02/12/17 16:59 01/15/17 08:41 1 CAN Simethicone (Mylicon Chew Tab) 80 mg Q6H PRN PO 01/13/17 19:45 02/12/17 19:44 01/13/17 21:05 80 MG Al Hydroxide/Mg Hydroxide (Maalox Susp) 30 ml Q6H PRN PO 01/13/17 19:45 02/12/17 19:44 01/13/17 20:07 30 ML Lidocaine (Lidoderm Patch 5%) 1 patch QAM TD 01/15/17 09:00 02/14/17 08:59 01/15/17 08:39 1 PATCH Miscellaneous (Remove Lidoderm Patch) 1 ea DAILY@21 N/A 01/14/17 21:00 02/13/17 20:59 01/14/17 21:04 1 EA Morphine Sulfate (MoRPHine SULFATE INJ) 3 mg Q4H PRN IV 01/14/17 11:45 01/28/17 11:44 01/14/17 12:10 3 MG
[2017-01-15] MEDS ORDERED: WARFARIN SOD 3 MG TAB PO SCH (16:15)
[2017-01-15 20:50] VITALS: BP 104/62; PULSE 93
[2017-01-15 23:31] VITALS: BP 106/65; PULSE 100; TEMP 36.5; O2SAT 95
[2017-01-16] VITALS: O2SAT 94
--- NOTE | 2017-01-16 00:51 | ORTHOPEDIC CONSULTATION ---
DATE OF CONSULTATION: 01/15/2017 HISTORY OF PRESENT ILLNESS: The patient is an 86-year-old male who is complaining of right wrist pain. He is here for medical problems including AFib, chronic kidney disease, hypertension, diastolic CHF, hypothyroidism and apparently had a fall. He thinks that he sprained his wrist. He had increased pain in the wrist from previously but he has had old injury there. He has had carpal tunnel syndrome and Dr. Villavicencio did carpal tunnel release surgery on him in the past. He has multiple medical problems including CHF, thyroid cancer, hypertension, left hip prosthetic joint loosening, mitral regurg, AFib, prostate cancer. Multiple surgeries including hernia, thyroid, EGD, left and right hip replacements, thyroidectomy, bilateral revision total hip replacements, status post tonsillectomy. FAMILY HISTORY: , lives alone. MEDICATIONS: Multiple including aspirin, warfarin and p.r.n. medications are acetaminophen and tramadol. Other medications reviewed. REVIEW OF SYSTEMS: Otherwise noncontributory. PHYSICAL EXAMINATION: Right wrist demonstrates he has about 30 degrees dorsiflexion and palmar flexion of the wrist. He has some tenderness over the wrist joint and tenderness over the CMC joint. He can make a full fist, extend his fingers and he has normal appearing capillary refill and tendon function. Unremarkable, atraumatic exam of his opposite wrist and hand with normal circulation, sensory and motor exam. He has bilateral carpal tunnel incisions from prior surgery. 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 He has some CMC joint arthritic changes about the wrist otherwise. No acute fracture identified. ASSESSMENT: Chronic arthritic changes, right wrist, aggravated by a fall. No acute fracture. PLAN: The patient already has a thumb spica wrist splint which is satisfactory. He can wear the splint as needed for comfort and put ice to his wrist as needed. He can consider a steroid injection p.r.n. on a q. 3 to 4-month basis as an outpatient as needed. He could be followed up as needed as an outpatient.
[2017-01-16] MEDS: LEVOTHYROXINE 75 MCG TAB PO SCH (05:53)
[2017-01-16 06:56] LABS: BASO % 0.6 %; BASO ABS # 0.05 K/uL (0-0.2); COMPLETE YES; HEMATOCRIT 34.8 % (42-52); IG% 0.3 %; LYMPH % 10.8 %; LYMPH ABS # 0.93 K/uL (1.2-3.4); MEAN CELL VOLUME 79.1 fL (80-100); MEAN CORPUSCULAR HEMOGLOBIN 24.1 pg (25-34); MEAN CORPUSCULAR HGB CONC 30.5 g/dl (32-36); MONO % 10.2 %; NEUT % 75.1 %; PLATELET COUNT 130 K/uL (130-400); WHITE BLOOD COUNT 8.65 K/uL (4.8-10.8)
[2017-01-16 07:00] VITALS: BP 106/70; PULSE 89; TEMP 37; O2SAT 98
[2017-01-16 07:00] LABS: INR 1.7 (0.9-1.1); PROTHROMBIN TIME (PATIENT) 18.4 SECONDS (9.0-12.0)
[2017-01-16 07:21] LABS: BUN/CREATININE RATIO 19.2 (10-20); CALCIUM 8.1 mg/dl (8.5-10.1); POTASSIUM 3.9 mmol/L (3.5-5.1)
[2017-01-16] MEDS: LACTOBACILLUS ACIDOPHILUS (FLORANEX) TAB PO SCH ×2 (08:05→12:07)
[2017-01-16] MEDS: BOOST VANILLA PO SCH ×2 (08:05)
[2017-01-16] MEDS: ASPIRIN 81 MG ECTAB PO SCH (08:55)
[2017-01-16] MEDS: LIDODERM (LIDOCAINE) PATCH 5% TD SCH (08:55)
[2017-01-16] MEDS: PANTOprazole SOD 40 MG TAB PO SCH (08:55)
[2017-01-16] MEDS: GUAIFENESIN 600 MG TABCR PO SCH (08:55)
[2017-01-16] MEDS: BUMETANIDE 1 MG TAB PO SCH (08:56)
[2017-01-16] MEDS: POTASSIUM CHLORIDE 20 MEQ TABCR PO SCH (08:56)
[2017-01-16] MEDS: SPIRONOLACTONE 25 MG TAB PO SCH (08:56)
[2017-01-16] MEDS: VERAPAMIL HCL 120 MG TABCR PO SCH (08:59)
[2017-01-16 09:00] VITALS: BP 96/56
[2017-01-16] MEDS: METOPROLOL TARTRATE 50 MG TAB PO SCH (09:00)
[2017-01-16] MEDS: EUCERIN CR 120 GM JAR EXT SCH (09:10)
[2017-01-16 14:22] VITALS: BP 96/56; PULSE 89; TEMP 37; O2SAT 98
--- NOTE | 2017-01-16 14:48 | Progress Note ---
Medicine Progress Note Date & Time of Visit: Jan 16, 2017 at 14:26. Subjective patient seen resting in bed in good spirits states he feels ok overall right hand pain resolving denies dyspnea, cough, chest pain, dizziness no other symptoms states he is ready for discharge today Objective Last 8 Hrs Date Time Temp Pulse Resp B/P Pulse Ox O2 Delivery O2 Flow Rate FiO2 01/16/17 14:22 37.0 89 18 98 Room Air 01/16/17 09:00 96/56 01/16/17 07:20 Nasal Cannula 3.0 01/16/17 07:00 37.0 89 18 106/70 98 Nasal Cannula 3.0 Physical Exam: General- oriented x 3, not in distress, speaks in sentences with no effort Eyes- anicteric Neck- no JVD Lungs- clear breath sounds bilaterally, no rales/wheeze Heart- normal rate, regular rhythm; (+) grade 3/6 murmur Abdomen- normal bowel sounds, soft, nontender Extremities- right hand/wrist: no edema/warmth/tenderness, good ROM mild pretibial edema, no calf tenderness; peripheral pulses intact Neuro- alert, oriented x 3; no gross deficits Skin- warm & dry Laboratory Results: Last 24 Hours Test 01/16/17 06:45 White Blood Count 8.65 K/uL Red Blood Count 4.40 M/uL Hemoglobin 10.6 g/dL Hematocrit 34.8 % Mean Corpuscular Volume 79.1 fL Mean Corpuscular Hemoglobin 24.1 pg Mean Corpuscular Hemoglobin Concent 30.5 g/dl Platelet Count 130 K/uL Mean Platelet Volume 10.0 fL Neutrophils (%) (Auto) 75.1 % Lymphocytes (%) (Auto) 10.8 % Monocytes (%) (Auto) 10.2 % Eosinophils (%) (Auto) 3.0 % Basophils (%) (Auto) 0.6 % Neutrophils # (Auto) 6.50 K/uL Lymphocytes # (Auto) 0.93 K/uL Monocytes # (Auto) 0.88 K/uL Eosinophils # (Auto) 0.26 K/uL Basophils # (Auto) 0.05 K/uL RDW Standard Deviation 50.6 fL RDW Coefficient of Variation 17.5 % Immature Granulocyte % (Auto) 0.3 % Immature Granulocyte # (Auto) 0.03 K/uL Prothrombin Time 18.4 SECONDS Prothromb Time International Ratio 1.7 Sodium Level 138 mmol/L Potassium Level 3.9 mmol/L Chloride Level 101 mmol/L Carbon Dioxide Level 29 mmol/L Anion Gap 8.0 mmol/L Blood Urea Nitrogen 19 mg/dl Creatinine 1.00 mg/dl Est Creatinine Clear Calc Drug Dose 58.6 ml/min Estimated GFR () 79.2 Estimated GFR (Non- 68.3 BUN/Creatinine Ratio 19.2 Random Glucose 77 mg/dl Calcium Level 8.1 mg/dl Assessment & Plan 86 year old male with history of A fib on coumadin, CHF Diastolic Type and Severe MR, Hypertension, Hypothyroidism presenting with fall. SEVERE SEPSIS SECONDARY TO RIGHT LOWER LOBE PNEUMONIA, POSSIBLE ASPIRATION Patient reports laying on floor all night until friends checked on him. Found to be in Atrial Fibrillation with RVR. Clinically deteriorated on 01/08/17 evening with hypotension, likely sepsis and responded to IVF. WBC 13k on presentation , Lactic acid-elevated, Hypotension which responded to IVF -S/P IV Fluid boluses, IVF -S/P IV Zosyn (Day 3)--> changed to Clindamycin TID (received total of 8 days) -Work up- Repeat CXR - Slight improvement in bibasilar opacities Blood cx x 2 - negative. Repeat CXR on 01/11/17- atelectasis , less likely pneumonia/CHF - clinically improved -Speech therapist Eval - s/p Video Swallow: (+) mild-moderate oropharyngeal Dysphagia--> now on mechanical soft slippery diet, tolerating well This patient presents with mild-moderate oral-pharyngeal dysphagia. In addition, the patient has known esophageal dysfunction. The following is recommended: 1.Slippery pureed diet; advance as tolerated 2.Aspiration precautions: GERD precuations--head of bed upright for meals and for 20-30 minutes after meals and head of bed at least 30-degrees at all times; alternate solids and liquids - continue Speech therapy eval HYPOTENSION: Resolved Likely secondary to sepsis as above - responded to IVF boluses and IVF -On Metoprolol (decreased to half dose than at home), Verapamil with holding parameters, Digoxin discontinued - BP stable overall monitor ATRIAL FIBRILLATION WITH RVR Patient likely missed 2 meals and medications per him/Possible pneumonia RLL -Work up- TSH- normal; Troponin - 0.026, 0.036, 0.033 - evaluated by [facility] Dr. Zelaya -On Metoprolol (half dose than at home due to hypotension), Verapamil 120 mg with holding parameters. Discontinued digoxin per cardiology INR 1.7 on discharge day, will give Coumadin 3mg, then resume usual coumadin dosing INR daily and adjust coumadin accordingly - ff up with [facility] in 1-2 weeks ACUTE KIDNEY INJURY ON CKD STAGE 3, RESOLVED Likely secondary to sepsis/hypotension -Baseline 1.2 - usual Bumex and Aldactone resumed - monitor PRP DIASTOLIC CHF, VALVULAR HEART DISEASE (SEVERE MR) -Update Echo - Severe MR, Severe prolapse of posterior mitral valve - restarted on bumex 1 mg, aldactone as at home on 01/11 - euvolemic at present please monitor volume status METABOLIC ENCEPHALOPATHY- Resolved Likely secondary to sepsis, day time sleepiness due to inadequate sleep at night as at home -Per baseline: AAOX3 per family with some forgetfulness and memory losses - now back to baseline FALL, AMBULATORY DYSFUNCTION /PROGRESSIVE FUNCTIONAL DECLINE -Fall precautions -continue PT/OT RIGHT WRIST PAIN, LIKELY FROM OSTEOARTHRITIS xray of the hand: no fracture Lidoderm Patch PRN Morphine (has allergy to percocet, on coumadin so will avoid NSAIDs) Ice pack Ortho Dr. Costello consulted- continue present management including wrist splint ff up with Ortho as needed POSSIBLE MENINGIOMA - per initial CT scan likely meningioma vs. contusion - repeat CT head done- artifact MILD LFT ELEVATION Likely secondary to Sepsis -trending down CALF PAIN/EDEMA -Venous duplex- negative for DVT HYPOTHYROIDISM -TSH normal -continue Synthroid PRESSURE ULCER Left-Stage III Right-Unstageable - continue daily wound care HTN - home dose of Metoprolol decreased due to low BP - continue Verapamil as well 6mm NODULAR DENSITY seen on CT HEAD -At left MCA bifurcation, incidental finding CT head: 1. No definite acute intracranial abnormality. 2. A 5 mm slightly hyperdense nodular focus within the extra-axial space in the left frontal lobe. This favors a small meningioma. However, recommend 24-hour head CT follow-up in the setting of trauma to exclude the less likely possibility of a small contusion. 3. There is also a 6 mm nodular density in the expected location of the left MCA bifurcation. This could be due to volume averaging or an incidental aneurysm. Follow-up nonemergent brain MRA can be used for further evaluation. ANEMIA - Hg stable around 08-27 - monitor GERD -continue PPI BPH -continue Hytrin - decreased to 2 mg daily due to possible orthostatic hypotension on presentation MILD-MODERATE OROPHARYNGEAL DYSPHAGIA, ESOPHAGEAL DYSFUNCTION - ASPIRATION +. Had 2 episodes of aspiration/choking while in hospital. -Speech therapist Eval - s/p Video Swallow: (+) mild-moderate oropharyngeal Dysphagia--> now on mechanical soft slippery diet, tolerating well - This patient presents with mild-moderate oral-pharyngeal dysphagia. In addition, the patient has known esophageal dysfunction. The following is recommended: 1.Slippery pureed diet; advance as tolerated 2.Aspiration precautions: GERD precuations--head of bed upright for meals and for 20-30 minutes after meals and head of bed at least 30-degrees at all times; alternate solids and liquids - continue Speech therapy eval DVT PROPHYLAXIS: Coumadin CODE STATUS: DNR/DNI per discussion with family Per Pedro Pablo langston (POA)/Bill - code status - DNR/DNI. Had a family meeting and per his advance directives -confirmed that he will be DNR/DNI. Goals of care discussed- okay with ICU, Vasopressors but DNR/DNI DISPOSITION : d/c to [facility] today ff up with PCP in 1 week ff up with [facility] 1-2 weeks Current Inpatient Medications: Current Inpatient Medications Medications (Trade) Dose Ordered Sig/Lorie Route Start Time Stop Time Status Last Admin Dose Admin Acetaminophen (Tylenol Tab) 650 mg Q4H PRN PO 01/07/17 22:15 02/06/17 22:14 Ondansetron HCl (Zofran Inj) 4 mg Q6H PRN IV 01/07/17 22:15 02/06/17 22:14 Nitroglycerin (Nitrostat Tab) 0.4 mg UD PRN SL 01/07/17 22:15 02/06/17 22:14 Aspirin (Ecotrin Tab) 81 mg DAILY PO 01/08/17 09:00 02/07/17 08:59 01/16/17 08:55 81 MG Levothyroxine Sodium (Synthroid Tab) 225 mcg SuTuThSa@0700 PO 01/09/17 07:00 02/08/17 07:00 01/16/17 05:53 225 MCG Levothyroxine Sodium (Synthroid Tab) 200 mcg MoWeFr@0600 PO 01/08/17 06:00 02/07/17 05:59 01/15/17 05:39 200 MCG Potassium Chloride (Klor-Con Tab) 20 meq QAM PO 01/08/17 09:00 02/07/17 08:59 01/16/17 08:56 20 MEQ Tramadol HCl (Ultram Tab) 50 mg DAILY PRN PO 01/07/17 22:30 02/06/17 22:29 01/14/17 21:16 50 MG Verapamil HCl (Calan-Sr Tab) 120 mg QAM PO 01/08/17 09:00 01/15/17 08:38 120 MG Warfarin Sodium (Coumadin Tab) 1.5 mg SuTuThSa@1600 PO 01/09/17 16:00 02/08/17 15:59 Future Hold 01/12/17 17:07 1.5 MG Warfarin Sodium (Coumadin Tab) 3 mg MoWeFr@1600 PO 01/08/17 16:00 02/07/17 15:59 Future Hold 01/10/17 17:13 3 MG Pantoprazole Sodium (Protonix Tab) 40 mg BID PO 01/08/17 09:00 02/07/17 08:59 01/16/17 08:55 40 MG Metoprolol Tartrate (Lopressor Iv) 5 mg Q6H PRN IV 01/07/17 22:30 02/06/17 22:29 Polyethylene (Miralax Powder Packet) 17 gm DAILY PRN PO 01/07/17 22:45 02/06/17 22:44 Metoprolol Tartrate (Lopressor Tab) 50 mg BID PO 01/08/17 21:00 02/07/17 20:59 01/15/17 20:49 50 MG Terazosin HCl (Hytrin Cap) 2 mg QPM PO 01/09/17 21:00 02/08/17 20:59 01/15/17 20:49 2 MG Multi-Ingredient Ointment (Eucerin Unscented Cr) 1 appln BID EXT 01/09/17 21:00 02/08/17 20:59 01/16/17 09:10 1 APPLN Lactobacillus Acidophilus (Floranex Tab) 4 tab TIDM PO 01/11/17 16:45 02/10/17 16:44 01/16/17 12:07 4 TAB Bumetanide (Bumex Tab) 1 mg DAILY PO 01/11/17 12:30 02/10/17 12:29 01/16/17 08:56 1 MG Spironolactone (Aldactone Tab) 25 mg DAILY PO 01/11/17 12:30 02/10/17 12:29 01/16/17 08:56 25 MG Guaifenesin (Mucinex Contr Rel Tab) 600 mg Q12 PO 01/12/17 21:00 02/11/17 20:59 01/16/17 08:55 600 MG Guaifenesin (Robitussin Sugar Free Syrup) 100 mg Q6H PRN PO 01/12/17 09:45 02/11/17 09:44 01/13/17 08:42 100 MG Enteral Nutritional Formula (Boost) 1 can BIDM PO 01/13/17 17:00 02/12/17 16:59 01/16/17 08:05 1 CAN Simethicone (Mylicon Chew Tab) 80 mg Q6H PRN PO 01/13/17 19:45 02/12/17 19:44 01/13/17 21:05 80 MG Al Hydroxide/Mg Hydroxide (Maalox Susp) 30 ml Q6H PRN PO 01/13/17 19:45 02/12/17 19:44 01/13/17 20:07 30 ML Lidocaine (Lidoderm Patch 5%) 1 patch QAM TD 01/15/17 09:00 02/14/17 08:59 01/16/17 08:55 1 PATCH Miscellaneous (Remove Lidoderm Patch) 1 ea DAILY@21 N/A 01/14/17 21:00 02/13/17 20:59 01/15/17 20:46 1 EA Morphine Sulfate (MoRPHine SULFATE INJ) 3 mg Q4H PRN IV 01/14/17 11:45 01/28/17 11:44 01/14/17 12:10 3 MG Warfarin Sodium (Coumadin Tab) 3 mg MoWeFr@1600 PO 01/15/17 16:15 02/14/17 16:14 01/15/17 16:36 3 MG Warfarin Sodium (Coumadin Tab) 1.5 mg SuTuThSa@1600 PO 01/16/17 16:00 02/15/17 15:59
[2017-01-16] MEDS ORDERED: LCTX PO (14:51)
[2017-01-16] MEDS ORDERED: Boost PO (14:51)
[2017-01-16] MEDS ORDERED: GFNSR600 PO (14:51)
[2017-01-16] MEDS ORDERED: HYT1 PO (14:51)
[2017-01-16] MEDS ORDERED: METO50TA17 PO (14:51)
[2017-01-16] MEDS ORDERED: ECRCR EXT (14:51)
[2017-01-16] MEDS ORDERED: LDDP5 TD (14:51)
--- NOTE | 2017-01-16 15:06 | Discharge Instructions ---
Discharge Instructions Admission Reason for Admission: Atrial Fibrillation With Rvr, Fall, Pneumonia Discharge Discharge Diagnosis / Problem: RIGHT LOWER LOBE PNEUMONIA, ATRIAL FIBRILLATION Discharge Goals Goal(s): Diagnostic testing, Therapeutic intervention Activity Recommendations Activity Level: Assistance Required Therapies: Physical Therapy, Occupational Therapy, Speech Therapy FALL AND ASPIRATION PRECAUTIONS, MONITOR RIGHT WRIST . Additional Information Patient informed of condition: Yes Advance Directives: No (UNKNOWN) DNR: Yes Level of Care: Skilled Communicable Disease: No Prognosis: Improving Instructions / Follow-Up Instructions / Follow-Up REPEAT INR DAILY AND ADJUST COUMADIN ACCORDINGLY. (INR ON DISCHARGE DAY 12/19/16 1.7, GIVEN COUMADIN 3MG) MONITOR VOLUME STATUS. PLEASE FOLLOW SPEECH THERAPY RECOMMENDATIONS NOTED ON DISCHARGE SUMMARY. MONITOR DECUBITUS ULCER DAILY. CONSIDER FOLLOW UP WITH WOUND CARE CENTER. MONITOR RIGHT HAND PAIN. FOLLOW UP WITH PRIMARY CARE PHYSICIAN DR. PRECIADO IN [address] CLARK IN 1-2 WEEKS. PLEASE REFER TO ACCOMPANYING DISCHARGE SUMMARY FOR DETAILS. Current Hospital Diet Patient's current hospital diet: AHA Diet (Heart Healthy) Discharge Diet Recommended Diet: AHA Diet (Heart Healthy) (MECHANICAL SOFT SLIPPERY DIET) Diet Texture: Mechanical Soft (ground) (SLIPPERY) Procedures Procedures Performed: VIDEO SWALLOW EVALUATION Pending Studies Studies pending at discharge: yes List of pending studies: PLEASE REFER TO ACCOMPANYING DISCHARGE SUMMARY FOR DETAILS. Physician Orders On Transfer Special Precautions: REPEAT INR DAILY AND ADJUST COUMADIN ACCORDINGLY. (INR ON DISCHARGE DAY 12/19/16 1.7, GIVEN COUMADIN 3MG) MONITOR VOLUME STATUS. PLEASE FOLLOW SPEECH THERAPY RECOMMENDATIONS NOTED ON DISCHARGE SUMMARY. MONITOR DECUBITUS ULCER DAILY. CONSIDER FOLLOW UP WITH WOUND CARE CENTER. MONITOR RIGHT HAND PAIN. FOLLOW UP WITH PRIMARY CARE PHYSICIAN DR. PRECIADO IN [address] CLARK IN 1-2 WEEKS. PLEASE REFER TO ACCOMPANYING DISCHARGE SUMMARY FOR DETAILS. Laboratory Results Lipid Panel Test 01/08/17 04:40 Range/Units Triglycerides Level 57 0-150 mg/dl Cholesterol Level 72 0-200 mg/dl HDL Cholesterol 20 mg/dl Cholesterol/HDL Ratio 3.6 LDL Cholesterol, Calculated 41 mg/dl Medical Emergencies . Who to Call and When: Medical Emergencies: If at any time you feel your situation is an emergency, please call 911 immediately. . Non-Emergent Contact Non-Emergency issues call your: Primary Care Provider . 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 "Provider Documentation" section prepared by Kaiden Burroughs. Core Measure Problem Core Measures: None
--- NOTE | 2017-01-16 15:09 | Discharge Summary ---
Discharge Summary Date of Service Jan 16, 2017. Discharge Summary Admission Date: Jan 07, 2017 at 22:03 Discharge Date: Jan 16, 2017 Discharge Disposition: retirement facility Principal Diagnosis: SEVERE SEPSIS SECONDARY TO RIGHT LOWER LOBE PNEUMONIA, POSSIBLE ASPIRATION Secondary Diagnoses/Problems: PLEASE REFER TO HOSPITAL COURSE BELOW FOR FURTHER DETAILS. Procedures: VIDEO SWALLOW STUDY Consultations: SUPERVISOR SAWMILL DR. CLARK Pending Studies/Follow-Up: REPEAT INR DAILY AND ADJUST COUMADIN ACCORDINGLY. (INR ON DISCHARGE DAY 12/19/16 1.7, GIVEN COUMADIN 3MG) MONITOR VOLUME STATUS. PLEASE FOLLOW SPEECH THERAPY RECOMMENDATIONS NOTED ON DISCHARGE SUMMARY. MONITOR DECUBITUS ULCER DAILY. CONSIDER FOLLOW UP WITH WOUND CARE CENTER. MONITOR RIGHT HAND PAIN. FOLLOW UP BRAIN MRA. FOLLOW UP WITH PRIMARY CARE PHYSICIAN DR. PRECIADO IN [address] CLARK IN 1-2 WEEKS. PLEASE REFER TO ACCOMPANYING DISCHARGE SUMMARY FOR DETAILS. Medication Reconciliation New Medications: Eucerin (Hydrocerin) 360 Appln/120 Gm Cr 1 APPLN EXT BID for 30 Days Guaifenesin Ext Rel (Mucinex Ext Rel) 600 Mg Tabcr 600 MG PO Q12 for 7 Days Lactobacillus Acidophilus (Floranex) 1 Tab Tab 4 TAB PO TIDM for 3 Days, TAB Lidocaine (Lidocaine) 1 Patch Tdsy 1 PATCH TD QAM for 7 Days Metoprolol Tartrate (Metoprolol Tartrate) 50 Mg Tab 50 MG PO BID for 30 Days, #60 TAB Terazosin HCl (Terazosin HCl) 1 Mg Cap 2 MG PO QPM for 30 Days, #30 CAP [Boost] () 1 CAN LIQD 1 CAN PO BIDM for 30 Days Continued Medications: Acetaminophen (Tylenol) 500 Mg Tab 500 MG PO TID PRN for Pain Aspirin (Aspirin Ec) 81 Mg Tab 81 MG PO DAILY Bumetanide (Bumetanide) 1 Mg Tab 1 MG PO QAM for 30 Days, #30 TAB 1 Refill Levothyroxine Sodium (Synthroid) 200 Mcg Tab 200 MCG PO MoWeFr@0600 for 30 Days, #30 TAB 1 Refill Levothyroxine Sodium (Synthroid) 50 Mcg Tab 225 MCG PO UD for 30 Days, #30 TABS 1 Refill take 225mcg every [id number] Omeprazole (Prilosec) 20 Mg Capcr 20 MG PO BID Polyethylene Glycol 3350 (Miralax) 1 Pow Pow 1 TBS PO DAILY PRN for Constipation dissolve one heaping tablespoon in 8 ounces of water or juice - one dose per day as needed for severe consipation Potassium Chloride (Klor-Con M20) 20 Meq Tabcr 20 MEQ PO QAM for 30 Days, #30 TABS 1 Refill Spironolactone (Spironolactone) 25 Mg Tab 25 MG PO QAM for 30 Days, #30 TAB 1 Refill Tramadol (Ultram) 50 Mg Tab 50 MG PO DAILY PRN for Pain, #10 TAB 0 Refills Verapamil HCl (Verapamil HCl ER) 120 Mg Tabcr 120 MG PO QAM for 30 Days, #30 TABS 1 Refill Warfarin Sod (Jantoven) 3 Mg Tab 3 MG PO MWF, TAB Warfarin Sod (Jantoven) 3 Mg Tab 1.5 MG PO 4XWK, TAB FRIDAY,FRIDAY,FRIDAY,FRIDAY Discontinued Medications: Digoxin (Digoxin) 0.125 Mg Tab 125 MCG PO DAILY Metoprolol Tartrate (Metoprolol Tartrate) 100 Mg Tab 100 MG PO BID for 30 Days, #60 TAB 1 Refill Terazosin Hcl (Hytrin) 10 Mg Cap 10 MG PO QPM, 0 Refills Admission Information HPI (per Admitting provider): Patient seen and examined. 86 year old male with PMHx of Afib on Coumadin, CKD stage 3, HTN, Diastolic CHF, hypothyroidism and other problems listed below presents to the ED following a fall. Patient reports that he fell last night. He states that he has had some chronic dizziness that he was told was secondary to some of his medications and that he is very careful not to fall. He reports last night he fell backwards and hit his head. He denies LOC but states he was unable to get up and laid on the floor all night until friends came to check on him today. He reports otherwise he has been feeling fairly well. He states he has had a cough and congestion for many years which is unchanged. He states he occasionally has chest pain but nothing significant recently. He denies palpitations and states he can never feel when he goes into rapid Afib. He denies fevers, chills, URI symptoms, chest pain, SOB, nausea, vomiting, diarrhea , dysuria, calf pain and edema. He reports he has not taken his medications today because he couldn't get to them after the fall. He states he's not sure if he took them yesterday. In the ED patient was in Afib with RVR, CT head showed meningioma, WBC count was elevated at 13K, CXR showed possible RLL pneumonia. Patient received 15mg total of IV Lopressor and then 100mg po. He received IVFs, and Zosyn. He will be admitted for further workup and treatment. Physical Exam (per Admitting): General Appearance: + pertinent finding (Very pleasant WD/WN 86 year old male lying in bed in NAD ) Head: normocephalic, atraumatic Eyes: PERRL, EOMI, sclerae normal ENT: pharynx normal, + pertinent finding (decreased hearing ) Neck: supple, no JVD, trachea midline Respiratory/Chest: chest non-tender, lungs clear, normal breath sounds, no respiratory distress, no accessory muscle use Cardiovascular: no gallop, no JVD, normal peripheral pulses, + systolic murmur, + irregularly irregular (rate in the 120s ) Abdomen/GI: normal bowel sounds, non tender, soft Back: normal inspection, no muscle spasm Extremities/Musculoskelatal: normal capillary refill, + calf tenderness, + pedal edema (trace), + pertinent finding (stasis dermatitis changes to BLLE ) Neurologic/Psych: alert, oriented x 3, + pertinent finding (no focal deficits noted ) Skin: + pertinent finding (stasis dermatitis noted to BLLE, skin warm to touch, mild erythema, some breaks in the skin ) Lymphatic: no adenopathy Hospital Course 86 year old male with history of A fib on coumadin, CHF Diastolic Type and Severe MR, Hypertension, Hypothyroidism presenting with fall. SEVERE SEPSIS SECONDARY TO RIGHT LOWER LOBE PNEUMONIA, POSSIBLE ASPIRATION Patient reports laying on floor all night until friends checked on him. Found to be in Atrial Fibrillation with RVR. Clinically deteriorated on 01/08/17 evening with hypotension, likely sepsis and responded to IVF. WBC 13k on presentation , Lactic acid-elevated, Hypotension which responded to IVF -S/P IV Fluid boluses, IVF -S/P IV Zosyn (Day 3)--> changed to Clindamycin TID (received total of 8 days) -Work up- Repeat CXR - Slight improvement in bibasilar opacities Blood cx x 2 - negative. Repeat CXR on 01/11/17- atelectasis , less likely pneumonia/CHF - clinically improved -Speech therapist Eval - s/p Video Swallow: (+) mild-moderate oropharyngeal Dysphagia--> now on mechanical soft slippery diet, tolerating well This patient presents with mild-moderate oral-pharyngeal dysphagia. In addition, the patient has known esophageal dysfunction. The following is recommended: 1.Slippery pureed diet; advance as tolerated 2.Aspiration precautions: GERD precuations--head of bed upright for meals and for 20-30 minutes after meals and head of bed at least 30-degrees at all times; alternate solids and liquids - continue Speech therapy eval HYPOTENSION: Resolved Likely secondary to sepsis as above - responded to IVF boluses and IVF -On Metoprolol (decreased to half dose than at home), Verapamil with holding parameters, Digoxin discontinued - BP stable overall monitor ATRIAL FIBRILLATION WITH RVR Patient likely missed 2 meals and medications per him/Possible pneumonia RLL -Work up- TSH- normal; Troponin - 0.026, 0.036, 0.033 - evaluated by Warper Creeler Dr. Clark -On Metoprolol (half dose than at home due to hypotension), Verapamil 120 mg with holding parameters. Discontinued digoxin per cardiology INR 1.7 on discharge day, will give Coumadin 3mg, then resume usual coumadin dosing INR daily and adjust coumadin accordingly - ff up with Warper Creeler in 1-2 weeks ACUTE KIDNEY INJURY ON CKD STAGE 3, RESOLVED Likely secondary to sepsis/hypotension -Baseline 1.2 - usual Bumex and Aldactone resumed - monitor PRP DIASTOLIC CHF, VALVULAR HEART DISEASE (SEVERE MR) -Update Echo - Severe MR, Severe prolapse of posterior mitral valve - restarted on bumex 1 mg, aldactone as at home on 01/11 - euvolemic at present please monitor volume status METABOLIC ENCEPHALOPATHY- Resolved Likely secondary to sepsis, day time sleepiness due to inadequate sleep at night as at home -Per baseline: AAOX3 per family with some forgetfulness and memory losses - now back to baseline FALL, AMBULATORY DYSFUNCTION /PROGRESSIVE FUNCTIONAL DECLINE -Fall precautions -continue PT/OT RIGHT WRIST PAIN, LIKELY FROM OSTEOARTHRITIS xray of the hand: no fracture Lidoderm Patch PRN Morphine (has allergy to percocet, on coumadin so will avoid NSAIDs) Ice pack Ortho Dr. Costello consulted- continue present management including wrist splint ff up with Ortho as needed POSSIBLE MENINGIOMA - per initial CT scan likely meningioma vs. contusion - repeat CT head done- artifact MILD LFT ELEVATION Likely secondary to Sepsis -trending down CALF PAIN/EDEMA -Venous duplex- negative for DVT HYPOTHYROIDISM -TSH normal -continue Synthroid PRESSURE ULCER Left-Stage III Right-Unstageable - continue daily wound care HTN - home dose of Metoprolol decreased due to low BP - continue Verapamil as well 6mm NODULAR DENSITY seen on CT HEAD -At left MCA bifurcation, incidental finding CT head: 1. No definite acute intracranial abnormality. 2. A 5 mm slightly hyperdense nodular focus within the extra-axial space in the left frontal lobe. This favors a small meningioma. However, recommend 24-hour head CT follow-up in the setting of trauma to exclude the less likely possibility of a small contusion. 3. There is also a 6 mm nodular density in the expected location of the left MCA bifurcation. This could be due to volume averaging or an incidental aneurysm. Follow-up nonemergent brain MRA can be used for further evaluation. ANEMIA - Hg stable around 10-11 - monitor GERD -continue PPI BPH -continue Hytrin - decreased to 2 mg daily due to possible orthostatic hypotension on presentation MILD-MODERATE OROPHARYNGEAL DYSPHAGIA, ESOPHAGEAL DYSFUNCTION - ASPIRATION +. Had 2 episodes of aspiration/choking while in hospital. -Speech therapist Eval - s/p Video Swallow: (+) mild-moderate oropharyngeal Dysphagia--> now on mechanical soft slippery diet, tolerating well - This patient presents with mild-moderate oral-pharyngeal dysphagia. In addition, the patient has known esophageal dysfunction. The following is recommended: 1.Slippery pureed diet; advance as tolerated 2.Aspiration precautions: GERD precuations--head of bed upright for meals and for 20-30 minutes after meals and head of bed at least 30-degrees at all times; alternate solids and liquids - continue Speech therapy eval DVT PROPHYLAXIS: Coumadin CODE STATUS: DNR/DNI per discussion with family Per Pedro Pablo langston (EMILY)/Bill - code status - DNR/DNI. Had a family meeting and per his advance directives -confirmed that he will be DNR/DNI. Goals of care discussed- okay with ICU, Vasopressors but DNR/DNI DISPOSITION : d/c to [facility] today ff up with PCP in 1 week ff up with Warper Creeler 1-2 weeks Total time spent on discharge = 55 MINUTES This includes examination of the patient, discharge planning, medication reconciliation, and communication with other providers. Discharge Instructions Discharge Instructions Admission Reason for Admission: Atrial Fibrillation With Rvr, Fall, Pneumonia Discharge Discharge Diagnosis / Problem: RIGHT LOWER LOBE PNEUMONIA, ATRIAL FIBRILLATION Discharge Goals Goal(s): Diagnostic testing, Therapeutic intervention Activity Recommendations Activity Level: Assistance Required Therapies: Physical Therapy, Occupational Therapy, Speech Therapy FALL AND ASPIRATION PRECAUTIONS, MONITOR RIGHT WRIST . Additional Information Patient informed of condition: Yes Advance Directives: No (UNKNOWN) DNR: Yes Level of Care: Skilled Communicable Disease: No Prognosis: Improving Instructions / Follow-Up Instructions / Follow-Up REPEAT INR DAILY AND ADJUST COUMADIN ACCORDINGLY. (INR ON DISCHARGE DAY 12/19/16 1.7, GIVEN COUMADIN 3MG) MONITOR VOLUME STATUS. PLEASE FOLLOW SPEECH THERAPY RECOMMENDATIONS NOTED ON DISCHARGE SUMMARY. MONITOR DECUBITUS ULCER DAILY. CONSIDER FOLLOW UP WITH WOUND CARE CENTER. MONITOR RIGHT HAND PAIN. FOLLOW UP BRAIN MRA. FOLLOW UP WITH PRIMARY CARE PHYSICIAN DR. PRECIADO IN [address] CLARK IN 1-2 WEEKS. PLEASE REFER TO ACCOMPANYING DISCHARGE SUMMARY FOR DETAILS. Current Hospital Diet Patient's current hospital diet: AHA Diet (Heart Healthy) Discharge Diet Recommended Diet: AHA Diet (Heart Healthy) (MECHANICAL SOFT SLIPPERY DIET) Diet Texture: Mechanical Soft (ground) (SLIPPERY) Procedures Procedures Performed: VIDEO SWALLOW EVALUATION Pending Studies Studies pending at discharge: yes List of pending studies: PLEASE REFER TO ACCOMPANYING DISCHARGE SUMMARY FOR DETAILS. Physician Orders On Transfer Special Precautions: REPEAT INR DAILY AND ADJUST COUMADIN ACCORDINGLY. (INR ON DISCHARGE DAY 12/19/16 1.7, GIVEN COUMADIN 3MG) MONITOR VOLUME STATUS. PLEASE FOLLOW SPEECH THERAPY RECOMMENDATIONS NOTED ON DISCHARGE SUMMARY. MONITOR DECUBITUS ULCER DAILY. CONSIDER FOLLOW UP WITH WOUND CARE CENTER. MONITOR RIGHT HAND PAIN. FOLLOW UP WITH PRIMARY CARE PHYSICIAN DR. PRECIADO IN [address] CLARK IN 1-2 WEEKS. PLEASE REFER TO ACCOMPANYING DISCHARGE SUMMARY FOR DETAILS. Laboratory Results Lipid Panel Test 01/08/17 04:40 Range/Units Triglycerides Level 57 0-150 mg/dl Cholesterol Level 72 0-200 mg/dl HDL Cholesterol 20 mg/dl Cholesterol/HDL Ratio 3.6 LDL Cholesterol, Calculated 41 mg/dl Medical Emergencies . Who to Call and When: Medical Emergencies: If at any time you feel your situation is an emergency, please call 911 immediately. . Non-Emergent Contact Non-Emergency issues call your: Primary Care Provider . 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 "Provider Documentation" section prepared by Kaiden Burroughs. Core Measure Problem Core Measures: None
[2017-01-16 15:57] VITALS: BP 117/64; PULSE 112; TEMP 36.8; O2SAT 98
[2017-01-16 16:00] VITALS: O2SAT 98
[2017-01-16] MEDS ORDERED: WARFARIN SOD 0.5 MG TAB PO SCH (16:00)
== END 2017-01-16 17:05 | DRG 871 ==
LOC: ENRESERVDT → ENRESERVTM → EDBD 19:08 → C.EDC 19:11 → C.EDINP 22:03 → C.2E 01-08 14:33 → C.MS2W 01-11 14:53
PROVIDERS: ADMIT Hospitalist; ATTEND Internal Medicine
DX: A41.9 Sepsis, unspecified organism (principal); N17.9 Acute kidney failure, unspecified; J69.0 Pneumonitis due to inhalation of food and vomit; I50.32 Chronic diastolic (congestive) heart failure; E87.2 Acidosis; G93.41 Metabolic encephalopathy; I48.2 Chronic atrial fibrillation; E87.3 Alkalosis; Z66 Do not resuscitate; Z79.82 Long term (current) use of aspirin; N18.3 Chronic kidney disease, stage 3 (moderate); Z79.01 Long term (current) use of anticoagulants; E03.9 Hypothyroidism, unspecified; Z85.850 Personal history of malignant neoplasm of thyroid; Z96.642 Presence of left artificial hip joint; R65.20 Severe sepsis without septic shock; I12.9 Hypertensive chronic kidney disease with stage 1 through stage 4 chronic kidney disease, or unspecified chronic kidney disease; D69.6 Thrombocytopenia, unspecified; K21.9 Gastro-esophageal reflux disease without esophagitis; N40.0 Benign prostatic hyperplasia without lower urinary tract symptoms; I34.0 Nonrheumatic mitral (valve) insufficiency; M19.031 Primary osteoarthritis, right wrist; D32.9 Benign neoplasm of meninges, unspecified; I87.8 Other specified disorders of veins

== ENCOUNTER 2017-02-07 09:56 | Emergency (ER) | payer OTHER, BC ==
[~2017-02-07] VITALS: Ht 170.2 cm; Wt 86.6 kg
[~2017-02-07 09:56] MED LIST changes: +Boost PO; -CMD3 PO; +ECRCR EXT; +GFNSR600 PO; +HYT1 PO; +LCTX PO; +LDDP5 TD; -LNX125 PO; -LPR100 PO; +METO50TA17 PO; -MULT1CHW42 PO; -TERA1CAP63 PO; +WARF3TAB6 PO
[2017-02-07 10:08] VITALS: Ht 170.2 cm; Wt 86.6 kg
[2017-02-07] MEDS ORDERED: MCRK/10 PO (10:34)
[2017-02-07] MEDS ORDERED: ASPCH81X PO (10:34)
[2017-02-07] MEDS ORDERED: WARF4TAB43 PO (10:36)
[2017-02-07] MEDS ORDERED: ACET-1311 PO (10:41)
[2017-02-07] MEDS ORDERED: SIME80CH PO (10:41)
[2017-02-07] MEDS ORDERED: SODIUM CHLORIDE 0.9% 1000ML 1,000 ML IV ONE (10:52)
[2017-02-07 11:06] LABS: HEMATOCRIT 35.5 % (42-52); MEAN CELL VOLUME 79.2 fL (80-100); MEAN CORPUSCULAR HEMOGLOBIN 24.6 pg (25-34); MEAN PLATELET VOLUME 11.6 fL (7.4-10.4); PLATELET COUNT 170 K/uL (130-400); RED BLOOD COUNT 4.48 M/uL (4.7-6.1); WHITE BLOOD COUNT 18.38 K/uL (4.8-10.8)
[2017-02-07 11:15] LABS: PARTIAL THROMBOPLASTIN RATIO 1.7; PROTHROMBIN TIME (PATIENT) 72.2 SECONDS (9.0-12.0)
[2017-02-07 11:22] LABS: INR 6.3 (0.9-1.1)
[2017-02-07 11:26] LABS: ALB/GLOB RATIO 1.2 (0.9-2); BUN/CREATININE RATIO 15.1 (10-20); CALCIUM 9.3 mg/dl (8.5-10.1); CREATININE 2.6 mg/dl (0.60-1.40); POTASSIUM 5.4 mmol/L (3.5-5.1)
[2017-02-07 11:28] LABS: ACANTHOCYTES 1+; BASO % 0.2 %; BASO ABS # 0.03 K/uL (0-0.2); COMPLETE YES; ECHINOCYTES 2+; IG% 0.5 %; LYMPH % 8.9 %; LYMPH ABS # 1.63 K/uL (1.2-3.4); MONO % 6.9 %; NEUT % 83.5 %; POLYCHROMASIA 1+
[2017-02-07] MEDS ORDERED: PHYTONADIONE INJ 10 MG in SODIUM CHLORIDE 0.9% 50ML 50 ML IV STA (11:32)
--- NOTE | 2017-02-07 11:50 | EMERGENCY ROOM VISIT NOTE ---
History Report prepared by Jarad: Conchis Johnson Under the Supervision of: Dr. Nba Baumann M.D. First contact with patient: 10:51 Chief Complaint: FEVER Stated Complaint: SOB/FEVER History of Present Illness The patient is a 86 year old male who presents to the Emergency Room via EMS from the [facility] with complaints of mild shortness of breath starting this morning. The patient also complains of chest tightness, and left hip pain. The patient is somnolent. As per transfer note, the patient was reported to have a change in mental status, worsened cough, nausea, vomiting, and diarrhea. As per Dr. Miguel, the patient recently fell and hit his head. He is on Coumadin. His last INR level was 4.0. He denies fevers, chills, chest pain, abdominal pain, urinary symptoms, or any other complaints. Source of History: patient Onset: this morning Position: other (global) Symptom Intensity: mild Quality: other (shortness of breath) Associated Symptoms: + cough, + diarrhea, + nausea, + vomiting, No abdominal pain, No chest pain, No chills, No fevers, No urinary symptoms Review of Systems See HPI for pertinent positives & negatives. A total of 10 systems reviewed and were otherwise negative. 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 (12) Status post cancer Surgical Problems: (1) H/O hernia repair (2) H/O thyroidectomy (3) History of esophagogastroduodenoscopy (EGD) (4) History of left hip replacement (5) History of right hip replacement (6) History of thyroidectomy (7) S/p bilateral revision of total hip replacement (8) S/P tonsillectomy Family History No pertinent family history Social History Smoking Status: Never Smoker Marital Status: Housing Status: lives alone Occupation Status: retired Current/Historical Medications Scheduled Aspirin (Aspirin Chewable), 81 MG PO DAILY Bumetanide (Bumetanide), 1 MG PO QAM Levothyroxine Sodium (Synthroid), 200 MCG PO [id number] Levothyroxine Sodium (Synthroid), 225 MCG PO UD Metoprolol Tartrate (Metoprolol Tartrate), 50 MG PO BID Omeprazole (Prilosec), 20 MG PO BID Potassium Chloride (K-Tabs), 20 MEQ PO DAILY Spironolactone (Spironolactone), 25 MG PO QAM Terazosin HCl (Terazosin HCl), 2 MG PO QPM Verapamil HCl (Verapamil HCl ER), 120 MG PO QAM Warfarin Sodium (Warfarin Sodium), 1 TAB PO DAILY Scheduled PRN Acetaminophen (Tylenol), 650 MG PO Q4 PRN for Pain or Fever Polyethylene Glycol 3350 (Miralax), 1 TBS PO DAILY PRN for Constipation Simethicone (Gas-X), 1 TAB PO Q4 PRN for GAS Tramadol (Ultram), 50 MG PO DAILY PRN for Pain Allergies Coded Allergies: Oxycodone (Verified Adverse Reaction, Unknown, PROLONGED HICCUPS - RELIEVED WITH THORAZINE, 01/07/17) Physical Exam Vital Signs Date Time Temp Pulse Resp B/P Pulse Ox O2 Delivery O2 Flow Rate FiO2 02/07/17 15:38 36.5 126 20 109/61 95 Nasal Cannula 4.0 02/07/17 13:21 114 02/07/17 12:54 123 20 94/60 99 Nasal Cannula 4.0 02/07/17 10:34 120 22 103/67 99 2.0 02/07/17 10:17 120 02/07/17 10:15 Nasal Cannula 2.0 02/07/17 10:08 37.0 122 24 98/63 97 Nasal Cannula 2.0 Physical Exam GENERAL: Patient is a healthy-appearing well-nourished HEAD: Normocephalic atraumatic EYES: Ocular movements intact pupils equal and react to light OROPHARYNX mucous membranes are moist no exudates present no erythema or edema present NECK: Supple no nuchal rigidity CHEST: Good equal expansion LUNGS: Bilateral wheezing present. CARDIAC: Normal S1 and S2 ABDOMEN: Soft nontender no guarding BACK: No CVA tenderness EXTREMITIES: No pain upon palpation normal muscle strength in all groups no clubbing cyanosis or edema. Chronic venous stasis changes to the bilateral legs. NEURO: Patient is following commands is answering questions appropriately. Alert and oriented x3 Cranial Nerves 2-12 grossly intact Medical Decision & Procedures ER Provider Diagnostic Interpretation: X-ray results as stated below per interpretation by me and the radiologist: LEFT FEMUR 2 VIEWS ROUTINE CLINICAL HISTORY: Pt c/o left hip pain COMPARISON STUDY: Left hip 11/24/2014. FINDINGS: No acute fractures within the left femur. The visualized pelvic bones appear intact. There are old fractures within the acetabular screws with superior displacement of the acetabular cup. This remains unchanged. 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 There is an old, healed fracture through the heterotopic ossification/greater trochanter. There is also heterotopic ossification adjacent to the proximal femoral shaft. There is diffuse soft tissue edema within the left thigh. IMPRESSION: 1. No acute fracture within the left femur. 2. Old fractures through the acetabular screws with mild superior displacement of the acetabular cup. This remains unchanged. Electronically signed by: Andrew Bauer M.D. 02/07/2017 12:05 PM Dictated Date/Time: 02/07/2017 12:02 PM PELVIS 1 OR 2 VIEW ROUTINE CLINICAL HISTORY: Left hip pain COMPARISON STUDY: 01/07/2017 FINDINGS: There are multiple surgical clips within the pelvis, possibly secondary to a prior lymph node dissection. There are bilateral total hip arthroplasties. The acetabular screws of the left hip arthroplasty remain fractured. The left acetabular cup demonstrates an increased opening angle. This remains unchanged. There is heterotopic ossification surrounding both hips also stable. There are no acute fractures. IMPRESSION: 1. No acute fractures 2. Bilateral total hip arthroplasties 3. Fractures of the left acetabular cup screws, unchanged the prior study. No change in the orientation of the left acetabular cup which demonstrates an increased opening angle Electronically signed by: Lj Hicks M.D. 02/07/2017 12:07 PM Dictated Date/Time: 02/07/2017 12:05 PM CHEST ONE VIEW PORTABLE CLINICAL HISTORY: Sepsis COMPARISON STUDY: 01/11/2017 FINDINGS: The heart remains enlarged. There is a persistent right pleural effusion. There are hazy basilar[ opacities, likely secondary to compressive atelectatic change. A trace left subglottic pleural effusion is also suspected. IMPRESSION: 1. Moderate right pleural effusion with associated right basilar opacities, likely atelectatic 2. Suspected trace subhepatic left pleural effusion 3. Stable cardiomegaly Electronically signed by: Lj Hicks M.D. 02/07/2017 12:02 PM Dictated Date/Time: 02/07/2017 12:00 PM Radiology results as stated below per my review and radiologist interpretation: CT SCAN OF THE CHEST WITHOUT IV CONTRAST CLINICAL HISTORY: Sepsis. COMPARISON STUDY: Chest x-ray dated 01/11/2017. TECHNIQUE: CT scan of the thorax was performed from the thoracic inlet to the upper abdomen. Images are reviewed in the axial, sagittal, and coronal planes. IV contrast was not administered for this examination as per the referring clinician. CT DOSE: 666.09 mGy.cm FINDINGS: Thyroid: Atrophic and not well visualized. Thoracic aorta: There is mild atherosclerotic calcification of the thoracic aorta, which is normal in caliber and demonstrates standard 3-vessel arch anatomy. Heart: The heart is enlarged and there is trace pericardial effusion. The coronary arteries are calcified. The main pulmonary arteries are dilated suggesting pulmonary artery hypertension. Lungs and pleural spaces: Evaluation of the lung parenchyma is degraded by large part ring motion artifact. There are moderate to large right and small left pleural effusions with associated consolidation. The trachea and central airways are clear. Mediastinum: Prominent mediastinal lymph nodes measure up to 9 mm in short axis. Mel: Not well assessed without IV contrast. Axillae: There is no axillary lymphadenopathy. Upper abdomen: Numerous calcified gallstones are identified. There is trace perihepatic and perisplenic ascites. A small hiatal hernia is noted. The visualized kidneys demonstrate cortical atrophy. Skeletal structures: The skeletal structures are osteopenic. Degenerative change is noted in the thoracic spine and shoulders. No lytic or blastic bony lesions are seen. Soft tissues: There is body wall edema. IMPRESSION: 1. Marked cardiomegaly with evidence of pulmonary artery hypertension. 2. Moderate to large right and small left pleural effusions with associated bibasilar consolidation. This likely represents atelectasis. Clinical correlation will be required. 3. Cholelithiasis. 4. Trace perihepatic and perisplenic ascites. 5. Additional findings as above. 5. Additional changes as above. Electronically signed by: Charles Rojas M.D. 02/07/2017 11:55 AM Dictated Date/Time: 02/07/2017 11:[address]AST CT DOSE: 614.27 mGy.cm HISTORY: Altered mental status. TECHNIQUE: Multiaxial CT images of the head were performed without the use of intravenous contrast. Automated exposure control was utilized for this study. Comparison: Head CT 01/08/2017. Findings: Mild mucosal thickening within the left maxillary sinus. The mastoid air cells are clear. Mild motion artifact. The calvarium and skull base are intact. There is no mass, hematoma, midline shift, acute infarct. White matter hypodensity is nonspecific but suggestive of microvascular ischemic change. The ventricles and sulci demonstrate mild age-related involutional changes. 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 Impression: Motion artifact. No definite acute intracranial abnormality. Electronically signed by: Andrew Bauer M.D. 02/07/2017 11:53 AM Dictated Date/Time: 02/07/2017 11:34 AM Laboratory Results 02/07/17 10:00 Red Blood Count 4.48, Mean Corpuscular Volume 79.2, Mean Corpuscular Hemoglobin 24.6, Mean Corpuscular Hemoglobin Concent 31.0, Mean Platelet Volume 11.6, Neutrophils (%) (Auto) 83.5, Lymphocytes (%) (Auto) 8.9, Monocytes (%) (Auto) 6.9, Eosinophils (%) (Auto) 0.0, Basophils (%) (Auto) 0.2, Neutrophils # (Auto) 15.36, Lymphocytes # (Auto) 1.63, Monocytes # (Auto) 1.26, Eosinophils # (Auto) 0.00, Basophils # (Auto) 0.03 02/07/17 10:00 Test 02/07/17 10:00 02/07/17 12:10 02/07/17 14:34 White Blood Count 18.38 K/uL (4.8-10.8) Red Blood Count 4.48 M/uL (4.7-6.1) Hemoglobin 11.0 g/dL (14.0-18.0) Hematocrit 35.5 % (42-52) Mean Corpuscular Volume 79.2 fL (80-100) Mean Corpuscular Hemoglobin 24.6 pg (25-34) Mean Corpuscular Hemoglobin Concent 31.0 g/dl (32-36) Platelet Count 170 K/uL (130-400) Mean Platelet Volume 11.6 fL (7.4-10.4) Neutrophils (%) (Auto) 83.5 % Lymphocytes (%) (Auto) 8.9 % Monocytes (%) (Auto) 6.9 % Eosinophils (%) (Auto) 0.0 % Basophils (%) (Auto) 0.2 % Neutrophils # (Auto) 15.36 K/uL (1.4-6.5) Lymphocytes # (Auto) 1.63 K/uL (1.2-3.4) Monocytes # (Auto) 1.26 K/uL (0.11-0.59) Eosinophils # (Auto) 0.00 K/uL (0-0.5) Basophils # (Auto) 0.03 K/uL (0-0.2) RDW Standard Deviation 53.6 fL (36.4-46.3) RDW Coefficient of Variation 18.7 % (11.5-14.5) Immature Granulocyte % (Auto) 0.5 % Immature Granulocyte # (Auto) 0.10 K/uL (0.00-0.02) Nucleated RBC Absolute Count (auto) 0.03 K/uL (0-0) Nucleated Red Blood Cells % 0.2 % Polychromasia 1+ Echinocytes 2+ Acanthocytes 1+ Prothrombin Time 72.2 SECONDS (9.0-12.0) Prothromb Time International Ratio 6.3 (0.9-1.1) Activated Partial Thromboplast Time 44.6 SECONDS (21.0-31.0) Partial Thromboplastin Ratio 1.7 Anion Gap 14.0 mmol/L (3-11) Est Creatinine Clear Calc Drug Dose 21.8 ml/min Estimated GFR () 24.9 Estimated GFR (Non- 21.5 BUN/Creatinine Ratio 15.1 (10-20) Calcium Level 9.3 mg/dl (8.5-10.1) Total Bilirubin 3.3 mg/dl (0.2-1) Aspartate Amino Transf (AST/SGOT) 1065 U/L (15-37) Alanine Aminotransferase (ALT/SGPT) 600 U/L (12-78) Alkaline Phosphatase 118 U/L (45-117) Total Creatine Kinase 74 U/L (39-308) Creatine Kinase MB 3.4 ng/ml (0.5-3.6) Creatine Kinase MB Ratio 4.6 (0-3.0) Troponin I < 0.015 ng/ml (0-0.045) Total Protein 6.3 gm/dl (6.4-8.2) Albumin 3.4 gm/dl (3.4-5.0) Globulin 2.9 gm/dl (2.5-4.0) Albumin/Globulin Ratio 1.2 (0.9-2) Bedside Lactic Acid Venous 3.51 mmol/L (0.90-1.70) Labs reviewed by ED physician. Medications Administered Medications (Trade) Dose Ordered Sig/Lorie Route Start Time Stop Time Status Last Admin Dose Admin Sodium Chloride 1,000 ml @ 999 mls/hr Q1H1M ONCE IV 02/07/17 10:52 02/07/17 11:52 DC 02/07/17 12:29 999 MLS/HR Phytonadione/ Sodium Chloride (Aqua-Mephyton Inj/Nss 50ml) 51 ml @ 102 mls/hr ONE STAT IV 02/07/17 11:32 02/07/17 12:01 DC 02/07/17 12:26 102 MLS/HR Piperacillin Sod/ Tazobactam Sod 4.5 gm 4.5 gm NOW STAT IV 02/07/17 12:11 02/07/17 12:14 DC 02/07/17 12:56 4.5 GM Daptomycin 520 mg/ Sodium Chloride 60.4 ml @ 120 mls/hr NOW STAT IV 02/07/17 12:18 02/07/17 12:48 DC 02/07/17 12:47 120 MLS/HR Sodium Chloride 1,000 ml @ 999 mls/hr Q1H1M STAT IV 02/07/17 12:17 02/07/17 13:17 DC 02/07/17 12:30 999 MLS/HR Sodium Chloride 500 ml @ 999 mls/hr Q31M STAT IV 02/07/17 12:49 02/07/17 13:19 DC 02/07/17 12:49 999 MLS/HR Sodium Chloride (Nss 150ml) 150 ml @ 999 mls/hr Q10M STAT IV 02/07/17 12:49 02/07/17 12:58 DC 02/07/17 12:49 999 MLS/HR ECG Indication: SOB/dyspnea Rate (beats per minute): 110 Rhythm: atrial fibrillation (with RVR) Findings: RBBB, no acute ischemic change ED Course 1051: Past medical records reviewed. The patient was evaluated in room C06. A complete history and physical examination was performed. 1052: Sodium Chloride 1000 ml @ 999 mls/hr IV 1132: Phytonadione 10 mg/Sodium Chloride 51 ml @ 102 mls/hr Protocol IV 1211: Zosyn IV 4.5 gm IV 1217: Sodium Chloride 1000 ml @ 999 mls/hr IV 1218: Daptomycin 520 mg/Sodium Chloride 60.4 ml @ 120 mls/hr IV 1249: Sodium Chloride 150 ml @ 999 mls/hr IV, Sodium Chloride 500 ml @ 999 mls/ hr IV 1227: Upon reexamination the patient is resting . I discussed results and treatment plan with the patient. He verbalizes agreement and understanding. I spoke with Dr. Denton from the [facility] Hospitalist Service. The patient will be evaluated for further management. 1228: I discussed the patient's case with Dr. Miguel, critical care medicine specialist with [facility]. Medical Decision Differential diagnosis: Etiologies such as infections, reactive airway disease, pneumonia, pneumothorax , COPD, CHF, cardiac ischemia, pulmonary embolism, musculoskeletal, gastrointestinal, as well as others were entertained. This is an 86 -year-old who presents emergency department complaining of fever hypotension tachycardic. The patient is septic. He was pancultured up. He has an elevation in his lactate. He has an elevation in his white blood count at 18. The patient was sent in for a CAT scan of his head as he recent fall as well as a chest x-ray. This does not show any acute process. The patient's transaminases as well as his T bili are elevated and for this reason the patient was sent for an ultrasound. I did discuss the case with the hospitalist service who discussed the case with surgery as well as thoracic surgery. All parties feel that the patient would be better service with interventional radiology. This is discussed with the family who asked that the patient be transferred to [facility]. I did discuss the case with the ICU and [facility]. The patient was given 30 mL's per kilogram of normal saline solution. He willingly signed the transfer paperwork to be transferred to [facility]. He was written for morphine Ativan and Zofran as needed for the trip. He was given Zosyn and gentamicin here in the emergency department. Patient and family were in agreement with the treatment plan. Consults Time Called: 1215 Consulting Physician: Dr. Denton from the [facility] Hospitalist Service Returned Call: [address] [facility] Impression Primary Impression: Sepsis Additional Impression: Acute cholecystitis Scribe Attestation The scribe's documentation has been prepared under my direction and personally reviewed by me in its entirety. I confirm that the note above accurately reflects all work, treatment, procedures, and medical decision making performed by me. Departure Information Dispostion Being Evaluated By Hospitalist Referrals [facility] (PCP) Patient Instructions [facility] Problem Qualifiers Primary Impression: Sepsis Sepsis type: sepsis due to unspecified organism Qualified Codes: A41.9 - Sepsis, unspecified organism
--- NOTE | 2017-02-07 11:54 | DIAGNOSTIC IMAGING REPORT ---
HEAD CT NONCONTRAST CT DOSE: 614.27 mGy.cm HISTORY: Altered mental status. TECHNIQUE: Multiaxial CT images of the head were performed without the use of intravenous contrast. Automated exposure control was utilized for this study. Comparison: Head CT 01/08/2017. Findings: Mild mucosal thickening within the left maxillary sinus. The mastoid air cells are clear. Mild motion artifact. The calvarium and skull base are intact. There is no mass, hematoma, midline shift, acute infarct. White matter hypodensity is nonspecific but suggestive of microvascular ischemic change. The ventricles and sulci demonstrate mild age-related involutional changes. 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 Impression: Motion artifact. No definite acute intracranial abnormality. Electronically signed by: Andrew Bauer M.D. 02/07/2017 11:53 AM Dictated Date/Time: 02/07/2017 11:34 AM
--- NOTE | 2017-02-07 11:56 | DIAGNOSTIC IMAGING REPORT ---
CT SCAN OF THE CHEST WITHOUT IV CONTRAST CLINICAL HISTORY: Sepsis. COMPARISON STUDY: Chest x-ray dated 01/11/2017. TECHNIQUE: CT scan of the thorax was performed from the thoracic inlet to the upper abdomen. Images are reviewed in the axial, sagittal, and coronal planes. IV contrast was not administered for this examination as per the referring clinician. CT DOSE: 666.09 mGy.cm FINDINGS: Thyroid: Atrophic and not well visualized. Thoracic aorta: There is mild atherosclerotic calcification of the thoracic aorta, which is normal in caliber and demonstrates standard 3-vessel arch anatomy. Heart: The heart is enlarged and there is trace pericardial effusion. The coronary arteries are calcified. The main pulmonary arteries are dilated suggesting pulmonary artery hypertension. Lungs and pleural spaces: Evaluation of the lung parenchyma is degraded by large part ring motion artifact. There are moderate to large right and small left pleural effusions with associated consolidation. The trachea and central airways are clear. Mediastinum: Prominent mediastinal lymph nodes measure up to 9 mm in short axis. Mel: Not well assessed without IV contrast. Axillae: There is no axillary lymphadenopathy. Upper abdomen: Numerous calcified gallstones are identified. There is trace perihepatic and perisplenic ascites. A small hiatal hernia is noted. The visualized kidneys demonstrate cortical atrophy. Skeletal structures: The skeletal structures are osteopenic. Degenerative change is noted in the thoracic spine and shoulders. No lytic or blastic bony lesions are seen. Soft tissues: There is body wall edema. IMPRESSION: 1. Marked cardiomegaly with evidence of pulmonary artery hypertension. 2. Moderate to large right and small left pleural effusions with associated bibasilar consolidation. This likely represents atelectasis. Clinical correlation will be required. 3. Cholelithiasis. 4. Trace perihepatic and perisplenic ascites. 5. Additional findings as above. 5. Additional changes as above. Electronically signed by: Charles Rojas M.D. 02/07/2017 11:55 AM Dictated Date/Time: 02/07/2017 11:50 AM
--- NOTE | 2017-02-07 12:03 | DIAGNOSTIC IMAGING REPORT ---
CHEST ONE VIEW PORTABLE CLINICAL HISTORY: Sepsis COMPARISON STUDY: 01/11/2017 FINDINGS: The heart remains enlarged. There is a persistent right pleural effusion. There are hazy basilar[ opacities, likely secondary to compressive atelectatic change. A trace left subglottic pleural effusion is also suspected. IMPRESSION: 1. Moderate right pleural effusion with associated right basilar opacities, likely atelectatic 2. Suspected trace subhepatic left pleural effusion 3. Stable cardiomegaly Electronically signed by: Lj Hicks M.D. 02/07/2017 12:02 PM Dictated Date/Time: 02/07/2017 12:00 PM
--- NOTE | 2017-02-07 12:07 | DIAGNOSTIC IMAGING REPORT ---
LEFT FEMUR 2 VIEWS ROUTINE CLINICAL HISTORY: Pt c/o left hip pain COMPARISON STUDY: Left hip 11/24/2014. FINDINGS: No acute fractures within the left femur. The visualized pelvic bones appear intact. There are old fractures within the acetabular screws with superior displacement of the acetabular cup. This remains unchanged. 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 There is an old, healed fracture through the heterotopic ossification/greater trochanter. There is also heterotopic ossification adjacent to the proximal femoral shaft. There is diffuse soft tissue edema within the left thigh. IMPRESSION: 1. No acute fracture within the left femur. 2. Old fractures through the acetabular screws with mild superior displacement of the acetabular cup. This remains unchanged. Electronically signed by: Andrew Bauer M.D. 02/07/2017 12:05 PM Dictated Date/Time: 02/07/2017 12:02 PM
--- NOTE | 2017-02-07 12:08 | DIAGNOSTIC IMAGING REPORT ---
PELVIS 1 OR 2 VIEW ROUTINE CLINICAL HISTORY: Left hip pain COMPARISON STUDY: 01/07/2017 FINDINGS: There are multiple surgical clips within the pelvis, possibly secondary to a prior lymph node dissection. There are bilateral total hip arthroplasties. The acetabular screws of the left hip arthroplasty remain fractured. The left acetabular cup demonstrates an increased opening angle. This remains unchanged. There is heterotopic ossification surrounding both hips also stable. There are no acute fractures. IMPRESSION: 1. No acute fractures 2. Bilateral total hip arthroplasties 3. Fractures of the left acetabular cup screws, unchanged the prior study. No change in the orientation of the left acetabular cup which demonstrates an increased opening angle Electronically signed by: jL Hicks M.D. 02/07/2017 12:07 PM Dictated Date/Time: 02/07/2017 12:05 PM
[2017-02-07] MEDS ORDERED: DAPTOmycin IV 522 MG in SODIUM CHLORIDE 0.9% 50ML 50 ML IV STA (12:11)
[2017-02-07] MEDS ORDERED: PIPERACILLIN/TAZOBACTAM 4.5 GM/100ML D5W IV STA (12:11)
[2017-02-07] MEDS ORDERED: SODIUM CHLORIDE 0.9% 1000ML 1,000 ML IV STA (12:17)
[2017-02-07] MEDS ORDERED: DAPTOMYCIN IV STA (12:18)
[2017-02-07] MEDS ORDERED: SODIUM CHLORIDE 0.9% IV STA (12:18)
[2017-02-07] MEDS ORDERED: SODIUM CHLORIDE 0.9% 150ML 150 ML IV STA (12:49)
[2017-02-07] MEDS ORDERED: SODIUM CHLORIDE 0.9% 500ML 500 ML IV STA (12:49)
[2017-02-07 13:08] LABS: CKMB/CK RATIO 4.6 (0-3.0)
[2017-02-07] MEDS ORDERED: LEVOTHYROXINE 50 MCG TAB PO SCH (14:15)
[2017-02-07] MEDS ORDERED: ALUMINUM/MAGNESIUM/SIMETH (MAALOX MAX) 30 ML UDC PO PRN (14:15)
[2017-02-07] MEDS ORDERED: MAGNESIUM HYDROXIDE SUSP 30 ML UDC PO PRN (14:15)
[2017-02-07] MEDS ORDERED: POLYETHYLENE (MIRALAX) 17 GM PACK PO PRN (14:15)
[2017-02-07] MEDS ORDERED: ONDANSETRON INJ 2 MG/ML 2 ML VIAL IV PRN (14:15)
[2017-02-07] MEDS ORDERED: ACETAMINOPHEN 325 MG TAB PO PRN (14:15)
--- NOTE | 2017-02-07 14:34 | DIAGNOSTIC IMAGING REPORT ---
ULTRASOUND RIGHT UPPER QUADRANT ABDOMEN CLINICAL HISTORY: Right upper quadrant abdominal pain. COMPARISON STUDY: No priors. TECHNIQUE: Real-time, grayscale, and color flow sonography of the right upper quadrant of the abdomen was performed. Images are reviewed in the transverse and longitudinal planes. FINDINGS: Liver: The liver is normal in size and heterogeneous in echotexture. There is no intrahepatic biliary ductal dilatation. The main portal vein is patent. Gallbladder: The gallbladder is filled with numerous shadowing calculi. There is nonspecific bladder wall thickening. The wall measures up to 5 mm. A sonographic Reveles's sign is reportedly absent. The common bile duct measures up to 0.5 cm in diameter. Pancreas: Visualized portions of the pancreatic head and body are normal in appearance. Right kidney: Survey images of the right kidney demonstrate show cortical atrophy. There is no hydronephrosis. A 2.9 cm cyst is noted in the interpolar region. Ascites: There is trace perihepatic ascites. Pleural spaces: There is a moderate right pleural effusion. IMPRESSION: 1. Cholelithiasis with nonspecific gallbladder wall thickening. This may be related to ascites and/or adjacent hepatocellular disease. A sonographic Reveles's sign is reportedly absent. Findings are equivocal for acute cholecystitis. If there is strong clinical concern for acute cholecystitis then a nuclear hepatobiliary scan should be considered. 2. The liver is heterogeneous in echotexture. 3. There is trace perihepatic ascites. 4. Moderate right pleural effusion. 5. Atrophic right kidney. Electronically signed by: Charles Rojas M.D. 02/07/2017 2:32 PM Dictated Date/Time: 02/07/2017 2:29 PM
[2017-02-07] MEDS ORDERED: METRONIDAZOLE / NSS 500 MG in PREMIXED NSS 100 ML IV SCH (15:00)
[2017-02-07] MEDS ORDERED: CIPROFLOXACIN / D5W 400 MG in PREMIXED IN D5W 200 ML IV SCH (15:00)
--- NOTE | 2017-02-07 15:24 | Medical Consult ---
Consultation Note Date of Service Feb 07, 2017. Consultation Note Date & Time of Service: Feb 07, 2017 at 14:29 Chief Complaint: Sob/Fever Primary Care Physician: Scot Torrez [place] History of Present Illness This is an 86 y/o male with a history of a-fib, diastolic CHF, CKD stage III, HTN, HLD, h/o thyroid cancer s/p thyroidectomy and post surgical hypothyroidism , and h/o prostate cancer s/p prostatectomy who presented to the ED on 02/07 with shortness of breath and fever. The patient is not a reliable historian and no one is at bedside. Per transfer note, the patient was supported to have nausea, vomiting and diarrhea. The patient also had a fever of 102F at the [facility], although he denies feeling feverish or having chills or sweats. The patient himself reports having a mechanical fall this morning after tripping on a table leg, and reports hitting his head. The patient is on Coumadin and had a recent INR of 5.4 on 02/04. The patient also reports mild shortness of breath as well as weakness and fatigue. He complains of productive cough, but states that this is chronic. He also complains of wheezing and orthopnea. He reports intermittent palpitations. Admits to diarrhea but denies nausea and vomiting. The patient denies fevers, chills, sweats, chest pain, claudication, nausea, vomiting, abdominal pain, dysuria, hematuria, urinary retention, paralysis, motor weakness, numbness and tingling. 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 CKD stage III HLD Acquired postsurgical hypothyroidism Surgical Problems: (1) H/O hernia repair Status: Chronic (2) H/O thyroidectomy Status: Chronic (3) History of esophagogastroduodenoscopy (EGD) Permanent Comment: 01/17/2015 - ring @ GE junction, tortuous esophagus, HH, multiple gastric polyps Status: Chronic (4) History of left hip replacement Status: Chronic (5) History of right hip replacement Status: Chronic (6) S/p bilateral revision of total hip replacement Status: Chronic (7) S/P tonsillectomy Status: Chronic Family History Cancer Diabetes mellitus Heart disease Malignant hyperthermia Social History Smoking Status: Never Smoker Smokeless Tobacco Use: No Alcohol Use: none Drug Use: none Marital Status: Housing status: lives alone, [facility] ([facility] [employer]) Occupational Status: retired Multi-Drug Resistant Organisms History of MDRO: No Allergies Coded Allergies: Oxycodone (Verified Adverse Reaction, Unknown, PROLONGED HICCUPS - RELIEVED WITH THORAZINE, 01/07/17) Home Medications Scheduled Aspirin (Aspirin Chewable), 81 MG PO DAILY Bumetanide (Bumetanide), 1 MG PO QAM Levothyroxine Sodium (Synthroid), 200 MCG PO MoWeFr@0600 Levothyroxine Sodium (Synthroid), 225 MCG PO UD Metoprolol Tartrate (Metoprolol Tartrate), 50 MG PO BID Omeprazole (Prilosec), 20 MG PO BID Potassium Chloride (K-Tabs), 20 MEQ PO DAILY Spironolactone (Spironolactone), 25 MG PO QAM Terazosin HCl (Terazosin HCl), 2 MG PO QPM Verapamil HCl (Verapamil HCl ER), 120 MG PO QAM Warfarin Sodium (Warfarin Sodium), 1 TAB PO DAILY Scheduled PRN Acetaminophen (Tylenol), 650 MG PO Q4 PRN for Pain or Fever Polyethylene Glycol 3350 (Miralax), 1 TBS PO DAILY PRN for Constipation Simethicone (Gas-X), 1 TAB PO Q4 PRN for GAS Tramadol (Ultram), 50 MG PO DAILY PRN for Pain Review of Systems Constitutional: + fatigue, + weakness, No chills, No fever (denies subjective fevers but had temp of 102F at [facility]), No sweats Eyes: No diplopia, No eye pain, No worsening of vision ENT: + trouble swallowing (occasional, chronic), No hearing loss, No sore throat Respiratory: + cough (chronic), + shortness of breath, + sputum, + wheezing Cardiovascular: + orthopnea, + palpitations (intermittent), No chest pain, No claudication Abdomen: + diarrhea, + problem reported (pt denies N/V, but transfer reports pt was in fact vomiting), No nausea, No pain, No vomiting Musculoskeletal: + joint pain (L hip pain, chronic), No calf pain, No muscle pain Genitourinary - Male: No dysuria, No hematuria, No urinary retention Neurologic: No numbness/tingling, No paralysis, No weakness Integumentary: No color change, No itch, No rash Physical Ex - H&P Physical Exam Vital Signs Date Time Temp Pulse Resp B/P Pulse Ox O2 Delivery O2 Flow Rate FiO2 02/07/17 13:21 114 02/07/17 12:54 123 20 94/60 99 Nasal Cannula 4.0 02/07/17 10:34 120 22 103/67 99 2.0 02/07/17 10:17 120 02/07/17 10:15 Nasal Cannula 2.0 02/07/17 10:08 37.0 122 24 98/63 97 Nasal Cannula 2.0 General Appearance: WD/WN, no apparent distress Head: normocephalic, atraumatic Eyes: normal inspection, PERRL, EOMI ENT: normal ENT inspection, hearing grossly normal, pharynx normal Neck: supple, no JVD, trachea midline Respiratory/Chest: normal breath sounds, no respiratory distress, + decreased breath sounds (very diminished bilaterally R>L), + crackles (right base) Cardiovascular: no murmur, + tachycardia, + irregularly irregular Abdomen/GI: normal bowel sounds, soft, + tenderness (RUQ and LLQ tenderness) Extremities/Musculoskelatal: no calf tenderness, no pedal edema, + swelling (1 + pitting edema to knees), + pertinent finding (chronic venous stasis changes) Neurologic/Psych: alert, normal mood/affect, + disoriented (disoriented to place) Skin: normal color, warm/dry, no rash Diagnostics - H&P Diagnostics Laboratory Results Results Past 24 Hours Test 02/07/17 10:00 02/07/17 12:10 Range/Units White Blood Count 18.38 4.8-10.8 K/uL Red Blood Count 4.48 4.7-6.1 M/uL Hemoglobin 11.0 14.0-18.0 g/dL Hematocrit 35.5 42-52 % Mean Corpuscular Volume 79.2 80-100 fL Mean Corpuscular Hemoglobin 24.6 25-34 pg Mean Corpuscular Hemoglobin Concent 31.0 32-36 g/dl Platelet Count 170 130-400 K/uL Mean Platelet Volume 11.6 7.4-10.4 fL Neutrophils (%) (Auto) 83.5 % Lymphocytes (%) (Auto) 8.9 % Monocytes (%) (Auto) 6.9 % Eosinophils (%) (Auto) 0.0 % Basophils (%) (Auto) 0.2 % Neutrophils # (Auto) 15.36 1.4-6.5 K/uL Lymphocytes # (Auto) 1.63 1.2-3.4 K/uL Monocytes # (Auto) 1.26 0.11-0.59 K/uL Eosinophils # (Auto) 0.00 0-0.5 K/uL Basophils # (Auto) 0.03 0-0.2 K/uL RDW Standard Deviation 53.6 36.4-46.3 fL RDW Coefficient of Variation 18.7 11.5-14.5 % Immature Granulocyte % (Auto) 0.5 % Immature Granulocyte # (Auto) 0.10 0.00-0.02 K/uL Nucleated RBC Absolute Count (auto) 0.03 0-0 K/uL Nucleated Red Blood Cells % 0.2 % Polychromasia 1+ Echinocytes 2+ Acanthocytes 1+ Prothrombin Time 72.2 9.0-12.0 SECONDS Prothromb Time International Ratio 6.3 0.9-1.1 Activated Partial Thromboplast Time 44.6 21.0-31.0 SECONDS Partial Thromboplastin Ratio 1.7 Sodium Level 140 136-145 mmol/L Potassium Level 5.4 3.5-5.1 mmol/L Chloride Level 103 98-107 mmol/L Carbon Dioxide Level 23 21-32 mmol/L Anion Gap 14.0 3-11 mmol/L Blood Urea Nitrogen 39 7-18 mg/dl Creatinine 2.60 0.60-1.40 mg/dl Est Creatinine Clear Calc Drug Dose 21.8 ml/min Estimated GFR () 24.9 Estimated GFR (Non- 21.5 BUN/Creatinine Ratio 15.1 10-20 Random Glucose 96 70-99 mg/dl Calcium Level 9.3 8.5-10.1 mg/dl Total Bilirubin 3.3 0.2-1 mg/dl Aspartate Amino Transf (AST/SGOT) 1065 15-37 U/L Alanine Aminotransferase (ALT/SGPT) 600 12-78 U/L Alkaline Phosphatase 118 45-117 U/L Total Creatine Kinase 74 39-308 U/L Creatine Kinase MB 3.4 0.5-3.6 ng/ml Creatine Kinase MB Ratio 4.6 0-3.0 Troponin I < 0.015 0-0.045 ng/ml Total Protein 6.3 6.4-8.2 gm/dl Albumin 3.4 3.4-5.0 gm/dl Globulin 2.9 2.5-4.0 gm/dl Albumin/Globulin Ratio 1.2 0.9-2 Bedside Lactic Acid Venous 3.51 0.90-1.70 mmol/L Microbiology Results 02/07/17 Blood Culture, Received Pending 02/07/17 Blood Culture, Received Pending Diagnostic Radiology Reviewed the following studies and agree with interpretation as follows: Patient Name: QUIN SMITH A Unit Number: [id number] Dictated: 02/07/171133 Transcribed: 02/07/171133 [facility] Printed Date/Time: [~ rep prt dt]/[~ rep prt tm] [~ rep ct labl] - [~ rep ct ivnm] [facility] [address] [place]iology [place] [address] Dictated: 02/07/171133 Transcribed: 02/07/171133 [facility] Printed Date/Time: [~ rep prt dt]/[~ rep prt tm] [~ rep ct labl] - [~ rep ct ivnm] Patient: LUISHI Address1: [address] [place] [address] [address], [address] [facility] Rec: [id number] Address2: Acct ID: [id number] [facility] [place] Zip: [place] [address] Date: 1930 Sex: M Room/Bed: Ref Phy: [facility] SC: ELISE Att Phy: Report #: [id number] Tyra Phy: [facility] Test: HWO Admit Phy: Car Storer: CALLDARELL Interpreting Phy: Andrew Bauer MD Diagnosis: SOB/FEVER Ordering Phy: Nba Baumann MD Service Date: 02/07/17 Admit Date: 02/07/17 MNE: PWRSCRIBE CONF: DICTATED BY: Andrew Bauer M.D.]] CC: Nba Baumann MD [facility] Endcc: [~ rep ct add3]] HEAD CT NONCONTRAST CT DOSE: 614.27 mGy.cm HISTORY: Altered mental status. TECHNIQUE: Multiaxial CT images of the head were performed without the use of intravenous contrast. Automated exposure control was utilized for this study. Comparison: Head CT 01/08/2017. Findings: Mild mucosal thickening within the left maxillary sinus. The mastoid air cells are clear. Mild motion artifact. The calvarium and skull base are intact. There is no mass, hematoma, midline shift, acute infarct. White matter hypodensity is nonspecific but suggestive of microvascular ischemic change. The ventricles and sulci demonstrate mild age-related involutional changes. 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 Impression: Motion artifact. No definite acute intracranial abnormality. Electronically signed by: Andrew Bauer M.D. 02/07/2017 11:53 AM Dictated Date/Time: 02/07/2017 11:34 AM The status of this report is Signed. Draft = Not yet reviewed or approved by Radiologist. Signed = Reviewed and approved by Radiologist. <AttendingPhy></AttendingPhy> <FamilyPhy>[facility]</FamilyPhy> < PrimaryPhy>[facility]</PrimaryPhy> <UnitNumber>[id number]</UnitNumber > <VisitNumber>[id number]</VisitNumber> <PatientName>LUISQUIN</ PatientName> <DateOfBirth>1930</DateOfBirth> <Location>[facility]</Location> < ServiceDate>02/07/17</ServiceDate> <MNE>ESINDI</MNE> <OrderingPhy>Nba Baumann MD</OrderingPhy> <OrderingPhyMNE>f rep ord mne</OrderingPhyMNE> < DictatingPhyMNE>f rep dict mne</DictatingPhyMNE> <CCListMNE>f rep ct mne</ CCListMNE> <AdmittingPhyMNE>f pt admit dr ibrahim</AdmittingPhyMNE> <AttendingPhyMNE >f pt attend dr ibrahim</AttendingPhyMNE> <ConsultingPhyMNE>f pt consult dr ibrahim</ConsultingPhyMNE> <FamilyPhyMNE>f pt fam dr ibrahim</FamilyPhyMNE> <OtherPhyMNE>f pt other dr ibrahim</OtherPhyMNE> < PrimaryPhyMNE>f pt prim care dr ibrahim</PrimaryPhyMNE> <ReferringPhyMNE>f pt referring dr ibrahim</ReferringPhyMNE> Patient Name: QUIN SMITH Unit Number: [id number] Dictated: 02/07/171199 Transcribed: 02/07/171199 [facility] Printed Date/Time: [~ rep prt dt]/[~ rep prt tm] [~ rep ct labl] - [~ rep ct ivnm] [facility] [address] [place] [address] Dictated: 02/07/17 1200 Transcribed: 02/07/17 1200 [facility]G Printed Date/Time: [~ rep prt dt]/[~ rep prt tm] [~ rep ct labl] - [~ rep ct ivnm] Patient: QUIN SMITH Address1: [address] [place] [address], [address] [facility] Rec: [id number] Address2: Acct ID: [id number] [facility] Zip: [place] [address] Date: 1930 Sex: M Room/Bed: Ref Phy: [facility] SC: ELISE Att Phy: Report #: [id number] Tyra Phy: [facility] Test: [id number] Admit Phy: Car Storer: SADI Interpreting Phy: Lj Hicks M.D. Diagnosis: SOB/FEVER Ordering Phy: Nba Baumann MD Service Date: 02/07/17 Admit Date: 02/07/17 MNE: PWRSCRIBE CONF: DICTATED BY: Lj Hicks M.D.]] CC: Nba Baumann MD [facility] Endcc: [~ rep ct add3]] CHEST ONE VIEW PORTABLE CLINICAL HISTORY: Sepsis COMPARISON STUDY: 01/11/2017 FINDINGS: The heart remains enlarged. There is a persistent right pleural effusion. There are hazy basilar[ opacities, likely secondary to compressive atelectatic change. A trace left subglottic pleural effusion is also suspected. IMPRESSION: 1. Moderate right pleural effusion with associated right basilar opacities, likely atelectatic 2. Suspected trace subhepatic left pleural effusion 3. Stable cardiomegaly Electronically signed by: Lj Hicks M.D. 02/07/2017 12:02 PM Dictated Date/Time: 02/07/2017 12:00 PM The status of this report is Signed. Draft = Not yet reviewed or approved by Radiologist. Signed = Reviewed and approved by Radiologist. <AttendingPhy></AttendingPhy> <FamilyPhy>[facility]</FamilyPhy> < PrimaryPhy>[facility]</PrimaryPhy> <UnitNumber>[id number]</UnitNumber > <VisitNumber>[id number]</VisitNumber> <PatientName>LUISQUIN</ PatientName> <DateOfBirth>1930</DateOfBirth> <Location>[facility]</Location> < ServiceDate>02/07/17</ServiceDate> <MNE>ESINDI</MNE> <OrderingPhy>Nba Baumann MD</OrderingPhy> <OrderingPhyMNE>f rep ord dr ibrahim</OrderingPhyMNE> < DictatingPhyMNE>f rep dict dr ibrahim</DictatingPhyMNE> <CCListMNE>f rep ct mne</ CCListMNE> <AdmittingPhyMNE>f pt admit dr ibrahim</AdmittingPhyMNE> <AttendingPhyMNE >f pt attend dr ibrahim</AttendingPhyMNE> <ConsultingPhyMNE>f pt consult dr ibrahim</ConsultingPhyMNE> <FamilyPhyMNE>f pt fam dr ibrahim</FamilyPhyMNE> <OtherPhyMNE>f pt other dr ibrahim</OtherPhyMNE> < PrimaryPhyMNE>f pt prim care dr ibrahim</PrimaryPhyMNE> <ReferringPhyMNE>f pt referring dr ibrahim</ReferringPhyMNE> Patient Name: QUIN SMITH Unit Number: [id number] Dictated: 02/07/171204 Transcribed: 02/07/171204 [facility] Printed Date/Time: [~ rep prt dt]/[~ rep prt tm] [~ rep ct labl] - [~ rep ct ivnm] [facility] [address] [place] [address] Dictated: 02/07/171204 Transcribed: 02/07/171204 [facility] Printed Date/Time: [~ rep prt dt]/[~ rep prt tm] [~ rep ct labl] - [~ rep ct ivnm] Patient: QUIN SMITH Address1: [address], [address] [facility] Rec: [id number] Address2: Acct ID: [id number] [facility] Zip: [place] [address] Date: 1930 Sex: M Room/Bed: Ref Phy: [facility] SC: [facility] Att Phy: Report #: [id number] Tyra Phy: [facility] Test: PVS Admit Phy: Car Storer: SADI Interpreting Phy: Lj Hicks M.D. Diagnosis: SOB/FEVER Ordering Phy: Nba Baumann MD Service Date: 02/07/17 Admit Date: 02/07/17 MNE: PWRSCRIBE CONF: DICTATED BY: Lj Hicks M.D.]] CC: Nba Baumann MD [facility] Endcc: [~ rep ct add3]] PELVIS 1 OR 2 VIEW ROUTINE CLINICAL HISTORY: Left hip pain COMPARISON STUDY: 01/07/2017 FINDINGS: There are multiple surgical clips within the pelvis, possibly secondary to a prior lymph node dissection. There are bilateral total hip arthroplasties. The acetabular screws of the left hip arthroplasty remain fractured. The left acetabular cup demonstrates an increased opening angle. This remains unchanged. There is heterotopic ossification surrounding both hips also stable. There are no acute fractures. IMPRESSION: 1. No acute fractures 2. Bilateral total hip arthroplasties 3. Fractures of the left acetabular cup screws, unchanged the prior study. No change in the orientation of the left acetabular cup which demonstrates an increased opening angle Electronically signed by: Lj Hicks M.D. 02/07/2017 12:07 PM Dictated Date/Time: 02/07/2017 12:05 PM The status of this report is Signed. Draft = Not yet reviewed or approved by Radiologist. Signed = Reviewed and approved by Radiologist. <AttendingPhy></AttendingPhy> <FamilyPhy>[facility]</FamilyPhy> < PrimaryPhy>[facility]</PrimaryPhy> <UnitNumber>[id number]</UnitNumber > <VisitNumber>[id number]</VisitNumber> <PatientName>QUIN SMITH</ PatientName> <DateOfBirth>1930</DateOfBirth> <Location>[facility]</Location> < ServiceDate>02/07/17</ServiceDate> <MNE>ESINDI</MNE> <OrderingPhy>Nba Baumann MD</OrderingPhy> <OrderingPhyMNE>f rep ord dr ibrahim</OrderingPhyMNE> < DictatingPhyMNE>f rep dict dr ibrahim</DictatingPhyMNE> <CCListMNE>f rep ct mne</ CCListMNE> <AdmittingPhyMNE>f pt admit dr ibrahim</AdmittingPhyMNE> <AttendingPhyMNE >f pt attend dr ibrahim</AttendingPhyMNE> <ConsultingPhyMNE>f pt consult dr ibrahim</ConsultingPhyMNE> <FamilyPhyMNE>f pt fam dr ibrahim</FamilyPhyMNE> <OtherPhyMNE>f pt other dr ibrahim</OtherPhyMNE> < PrimaryPhyMNE>f pt prim care dr birahim</PrimaryPhyMNE> <ReferringPhyMNE>f pt referring dr ibrahim</ReferringPhyMNE> Patient Name: QUIN SMITH Unit Number: [id number] Dictated: 02/07/171201 Transcribed: 02/07/17 120 PAJ Printed Date/Time: [~ rep prt dt]/[~ rep prt tm] [~ rep ct labl] - [~ rep ct ivnm] [facility] [address] [place] [address] Dictated: 02/07/17 120 Transcribed: 02/07/17 120 PA Printed Date/Time: [~ rep prt dt]/[~ rep prt tm] [~ rep ct labl] - [~ rep ct ivnm] Patient: QUIN SMITH Address1: [address], [address] [facility] Rec: [id number] Address2: Acct ID: [id number] [facility] Zip: [place] [address] Date: 1930 Sex: M Room/Bed: Ref Phy: [facility] SC: ELISE Att Phy: Report #: [id number] Tyra Phy: [facility] Test: FMR Admit Phy: Car Storer: SADI Interpreting Phy: Andrew Bauer MD Diagnosis: SOB/FEVER Ordering Phy: Nba Baumann MD Service Date: 02/07/17 Admit Date: 02/07/17 MNE: PWRSCRIBE CONF: DICTATED BY: Andrew Bauer M.D.]] CC: Nba Baumann MD [facility] Endcc: [~ rep ct add3]] LEFT FEMUR 2 VIEWS ROUTINE CLINICAL HISTORY: Pt c/o left hip pain COMPARISON STUDY: Left hip 11/24/2014. FINDINGS: No acute fractures within the left femur. The visualized pelvic bones appear intact. There are old fractures within the acetabular screws with superior displacement of the acetabular cup. This remains unchanged. 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 There is an old, healed fracture through the heterotopic ossification/greater trochanter. There is also heterotopic ossification adjacent to the proximal femoral shaft. There is diffuse soft tissue edema within the left thigh. IMPRESSION: 1. No acute fracture within the left femur. 2. Old fractures through the acetabular screws with mild superior displacement of the acetabular cup. This remains unchanged. Electronically signed by: Andrew Bauer M.D. 02/07/2017 12:05 PM Dictated Date/Time: 02/07/2017 12:02 PM The status of this report is Signed. Draft = Not yet reviewed or approved by Radiologist. Signed = Reviewed and approved by Radiologist. <AttendingPhy></AttendingPhy> <FamilyPhy>[facility]</FamilyPhy> < PrimaryPhy>[facility]</PrimaryPhy> <UnitNumber>[id number]</UnitNumber > <VisitNumber>[id number]</VisitNumber> <PatientName>QUIN SMITH</ PatientName> <DateOfBirth>1930</DateOfBirth> <Location>[facility]</Location> < ServiceDate>02/07/17</ServiceDate> <MNE>ESINDI</MNE> <OrderingPhy>Nba Baumann MD</OrderingPhy> <OrderingPhyMNE>f rep ord dr ibrahim</OrderingPhyMNE> < DictatingPhyMNE>f rep dict dr ibrahim</DictatingPhyMNE> <CCListMNE>f rep ct mne</ CCListMNE> <AdmittingPhyMNE>f pt admit dr ibrahim</AdmittingPhyMNE> <AttendingPhyMNE >f pt attend dr ibrahim</AttendingPhyMNE> <ConsultingPhyMNE>f pt consult dr ibrahim</ConsultingPhyMNE> <FamilyPhyMNE>f pt fam dr ibrahim</FamilyPhyMNE> <OtherPhyMNE>f pt other dr ibrahim</OtherPhyMNE> < PrimaryPhyMNE>f pt prim care dr ibrahim</PrimaryPhyMNE> <ReferringPhyMNE>f pt referring dr ibrahim</ReferringPhyMNE> Patient Name: QUIN SMITH Unit Number: [id number] Dictated: 02/07/171149 Transcribed: 02/07/17 115 EV Printed Date/Time: [~ rep prt dt]/[~ rep prt tm] [~ rep ct labl] - [~ rep ct ivnm] [facility] [address] [place] [address] Dictated: 02/07/171149 Transcribed: 02/07/17 115 EV Printed Date/Time: [~ rep prt dt]/[~ rep prt tm] [~ rep ct labl] - [~ rep ct ivnm] Patient: QUIN SMITH Address1: [address], [address] [facility] Rec: [id number] Address2: Acct ID: [id number] [facility] Zip: [place] [address] Date: 1930 Sex: M Room/Bed: Ref Phy: [facility] SC: C.EDC Att Phy: Report #: [id number] Tyra Phy: [facility] Test: CXWO Admit Phy: Car Storer: CHARBEL Interpreting Phy: Charles Rojas M.D. Diagnosis: SOB/FEVER Ordering Phy: Nba Baumann MD Service Date: 02/07/17 Admit Date: 02/07/17 MNE: PWRSCRIBE CONF: DICTATED BY: Charles Rojas M.D.]] CC: Nba Baumann MD [facility] Endcc: [~ rep ct add3]] CT SCAN OF THE CHEST WITHOUT IV CONTRAST CLINICAL HISTORY: Sepsis. COMPARISON STUDY: Chest x-ray dated 01/11/2017. TECHNIQUE: CT scan of the thorax was performed from the thoracic inlet to the upper abdomen. Images are reviewed in the axial, sagittal, and coronal planes. IV contrast was not administered for this examination as per the referring clinician. CT DOSE: 666.09 mGy.cm FINDINGS: Thyroid: Atrophic and not well visualized. Thoracic aorta: There is mild atherosclerotic calcification of the thoracic aorta, which is normal in caliber and demonstrates standard 3-vessel arch anatomy. Heart: The heart is enlarged and there is trace pericardial effusion. The coronary arteries are calcified. The main pulmonary arteries are dilated suggesting pulmonary artery hypertension. Lungs and pleural spaces: Evaluation of the lung parenchyma is degraded by large part ring motion artifact. There are moderate to large right and small left pleural effusions with associated consolidation. The trachea and central airways are clear. Mediastinum: Prominent mediastinal lymph nodes measure up to 9 mm in short axis. Mel: Not well assessed without IV contrast. Axillae: There is no axillary lymphadenopathy. Upper abdomen: Numerous calcified gallstones are identified. There is trace perihepatic and perisplenic ascites. A small hiatal hernia is noted. The visualized kidneys demonstrate cortical atrophy. Skeletal structures: The skeletal structures are osteopenic. Degenerative change is noted in the thoracic spine and shoulders. No lytic or blastic bony lesions are seen. Soft tissues: There is body wall edema. IMPRESSION: 1. Marked cardiomegaly with evidence of pulmonary artery hypertension. 2. Moderate to large right and small left pleural effusions with associated bibasilar consolidation. This likely represents atelectasis. Clinical correlation will be required. 3. Cholelithiasis. 4. Trace perihepatic and perisplenic ascites. 5. Additional findings as above. 5. Additional changes as above. Electronically signed by: Charles Rojas M.D. 02/07/2017 11:55 AM Dictated Date/Time: 02/07/2017 11:50 AM The status of this report is Signed. Draft = Not yet reviewed or approved by Radiologist. Signed = Reviewed and approved by Radiologist. <AttendingPhy></AttendingPhy> <FamilyPhy>[facility]</FamilyPhy> < PrimaryPhy>[facility]</PrimaryPhy> <UnitNumber>[id number]</UnitNumber > <VisitNumber>[id number]</VisitNumber> <PatientName>LISHABRANDENQUIN</ PatientName> <DateOfBirth>1930</DateOfBirth> [facility] < ServiceDate>02/07/17</ServiceDate> <MNE>ESINDI</MNE> <OrderingPhy>Nba Baumann MD</OrderingPhy> <OrderingPhyMNE>f rep ord dr ibrahim</OrderingPhyMNE> < DictatingPhyMNE>f rep dict dr ibrahim</DictatingPhyMNE> <CCListMNE>f rep ct norye</ CCListMNE> <AdmittingPhyMNE>f pt admit dr ibrahim</AdmittingPhyMNE> <AttendingPhyMNE >f pt attend dr ibrahim</AttendingPhyMNE> <ConsultingPhyMNE>f pt consult dr ibrahim</ConsultingPhyMNE> <FamilyPhyMNE>f pt fam dr ibrahim</FamilyPhyMNE> <OtherPhyMNE>f pt other dr ibrahim</OtherPhyMNE> < PrimaryPhyMNE>f pt prim care dr ibrahim</PrimaryPhyMNE> <ReferringPhyMNE>f pt referring dr ibrahim</ReferringPhyMNE> Patient Name: QUIN SMITH Unit Number: [id number] Dictated: 02/07/171428 Transcribed: 02/07/171428 EV Printed Date/Time: [~ rep prt dt]/[~ rep prt tm] [~ rep ct labl] - [~ rep ct ivnm] [facility] [address] [place] [address] Dictated: 02/07/171428 Transcribed: 02/07/171428 EV Printed Date/Time: [~ rep prt dt]/[~ rep prt tm] [~ rep ct labl] - [~ rep ct ivnm] Patient: QUIN SMITH Address1: [address] [facility] Rec: [id number] Address2: Acct ID: [id number] [facility] [place] Zip: [place] [address] Date: 1930 Sex: M Room/Bed: Ref Phy: [facility] SC: ELISE Att Phy: Report #: [id number] Tyra Phy: [facility] Test: ABDL Admit Phy: Car Storer: LEONARDA Interpreting Phy: Charles Rojas M.D. Diagnosis: SOB/FEVER Ordering Phy: Nba Baumann MD Service Date: 02/07/17 Admit Date: 02/07/17 MNE: [id number] CONF: DICTATED BY: Charles Rojas M.D.]] CC: Nba Baumann MD [facility] Endcc: [~ rep ct add3]] ULTRASOUND RIGHT UPPER QUADRANT ABDOMEN CLINICAL HISTORY: Right upper quadrant abdominal pain. COMPARISON STUDY: No priors. TECHNIQUE: Real-time, grayscale, and color flow sonography of the right upper quadrant of the abdomen was performed. Images are reviewed in the transverse and longitudinal planes. FINDINGS: Liver: The liver is normal in size and heterogeneous in echotexture. There is no intrahepatic biliary ductal dilatation. The main portal vein is patent. Gallbladder: The gallbladder is filled with numerous shadowing calculi. There is nonspecific bladder wall thickening. The wall measures up to 5 mm. A sonographic Reveles's sign is reportedly absent. The common bile duct measures up to 0.5 cm in diameter. Pancreas: Visualized portions of the pancreatic head and body are normal in appearance. Right kidney: Survey images of the right kidney demonstrate show cortical atrophy. There is no hydronephrosis. A 2.9 cm cyst is noted in the interpolar region. Ascites: There is trace perihepatic ascites. Pleural spaces: There is a moderate right pleural effusion. IMPRESSION: 1. Cholelithiasis with nonspecific gallbladder wall thickening. This may be related to ascites and/or adjacent hepatocellular disease. A sonographic Reveles's sign is reportedly absent. Findings are equivocal for acute cholecystitis. If there is strong clinical concern for acute cholecystitis then a nuclear hepatobiliary scan should be considered. 2. The liver is heterogeneous in echotexture. 3. There is trace perihepatic ascites. 4. Moderate right pleural effusion. 5. Atrophic right kidney. Electronically signed by: Charles Rojas M.D. 02/07/2017 2:32 PM Dictated Date/Time: 02/07/2017 2:29 PM The status of this report is Signed. Draft = Not yet reviewed or approved by Radiologist. Signed = Reviewed and approved by Radiologist. <AttendingPhy></AttendingPhy> <FamilyPhy>[facility]</FamilyPhy> < PrimaryPhy>[facility]</PrimaryPhy> <UnitNumber>[id number]</UnitNumber > <VisitNumber>[id number]</VisitNumber> <PatientName>QUIN SMITH</ PatientName> <DateOfBirth>1930</DateOfBirth> <Location>[facility]</Location> < ServiceDate>02/07/17</ServiceDate> <MNE>ESINDI</MNE> <OrderingPhy>Nba Baumann MD</OrderingPhy> <OrderingPhyMNE>f rep ord dr ibrahim</OrderingPhyMNE> < DictatingPhyMNE>f rep dict dr ibrahim</DictatingPhyMNE> <CCListMNE>f rep ct norye</ CCListMNE> <AdmittingPhyMNE>f pt admit dr ibrahim</AdmittingPhyMNE> <AttendingPhyMNE >f pt attend dr ibrahim</AttendingPhyMNE> <ConsultingPhyMNE>f pt consult dr ibrahim</ConsultingPhyMNE> <FamilyPhyMNE>f pt fam dr ibrahim</FamilyPhyMNE> <OtherPhyMNE>f pt other dr ibrahim</OtherPhyMNE> < PrimaryPhyMNE>f pt prim care dr ibrahim</PrimaryPhyMNE> <ReferringPhyMNE>f pt referring dr ibrahim</ReferringPhyMNE> EKG Reviewed EKG and agree with interpretation as follows: 110 bpm, afib with RVR, RBBB Impression - H&P Impression Assessment and Plan 86 y/o male with a history of a-fib, diastolic CHF, CKD stage III, HTN, HLD, h/ o thyroid cancer s/p thyroidectomy and post surgical hypothyroidism, and h/o prostate cancer s/p prostatectomy who presented to the ED on 02/07 with shortness of breath and fever. Patient not a reliable historian, apparently had N/V/D per transfer note. Patient found to have large right pleural effusion and an INR of 6.3. Abdominal ultrasound equivocal for acute cholecystitis; however, patient had elevated LFTs. Patient arrived septic with HR in 120s, hypotension, elevated white count of 18.38, and elevated lactic acid of 3.51. Afebrile on arrival, however, patient had a fever of 102F in the [facility]. Sepsis secondary to acute cholecystitis -Spoke with family and general surgery here, decided the patient will be transferred to tertiary center for possible percutaneous drainage -Kept patient strict nothing by mouth until transfer -Patient received normal saline boluses, total of 2.5 L -Received 1 dose each daptomycin and Zosyn IV in ED Atrial fibrillation--Currently in RVR Supratherapeutic INR--INR 6.3 on arrival -Given phytonadione 10 mg IV x 1 GIAN on CKD stage III--baseline creatinine 1.0-1.2 -Creatinine 2.6 on arrival Hyperkalemia--potassium 5.4 on arrival VTE Prophylaxis VTE Risk Assessment Done? Y/N: Yes Risk Level: Moderate
[2017-02-07 15:38] VITALS: BP 109/61; PULSE 126; TEMP 36.5; O2SAT 95
[2017-02-07] MEDS ORDERED: LORAZEPAM 2 MG/ML 1 ML VIAL ONE (17:23)
[2017-02-07] MEDS ORDERED: NON-FORMULARY MEDICATION (Omeprazole (Prilosec) 20 MG) PO SCH (21:00)
[2017-02-10] MEDS ORDERED: LEVOTHYROXINE 200 MCG TAB PO SCH (06:00)
== END 2017-02-07 17:51 | disposition short-term general hospital (02) ==
LOC: EDBD 09:56 → C.EDC 09:58
DX: A41.9 Sepsis, unspecified organism (principal); K81.9 Cholecystitis, unspecified; I48.91 Unspecified atrial fibrillation; I50.30 Unspecified diastolic (congestive) heart failure; I12.9 Hypertensive chronic kidney disease with stage 1 through stage 4 chronic kidney disease, or unspecified chronic kidney disease; N18.3 Chronic kidney disease, stage 3 (moderate); J90 Pleural effusion, not elsewhere classified; I51.7 Cardiomegaly; I34.0 Nonrheumatic mitral (valve) insufficiency; Z85.850 Personal history of malignant neoplasm of thyroid; Z96.643 Presence of artificial hip joint, bilateral; Z85.46 Personal history of malignant neoplasm of prostate; Z79.01 Long term (current) use of anticoagulants; Z79.82 Long term (current) use of aspirin

== ENCOUNTER → 2017-04-08 | Outpatient (CLI) | payer OTHER, BC ==
[~2017-04-08] MED LIST changes: -ACET-1256 PO; +ACET-1311 PO; +ASPCH81X PO; -ASPI81TA28 PO; -Boost PO; -ECRCR EXT; -GFNSR600 PO; -LCTX PO; -LDDP5 TD; +MCRK/10 PO; -MCRK20 PO; +SIME80CH PO; -WARF3TAB6 PO; +WARF4TAB43 PO
[2017-04-08 11:22] LABS: INR 2.4 (0.9-1.1); PROTHROMBIN TIME (PATIENT) 26.6 SECONDS (9.0-12.0)
== END | disposition home or self-care (01) ==
LOC: C.LABVPSUA 10:01
PROVIDERS: ATTEND Internal Medicine Critical Care Medicine
DX: I48.91 Unspecified atrial fibrillation (principal)

== ENCOUNTER → 2017-04-22 | Outpatient (CLI) | payer OTHER, BC ==
[2017-04-22 10:14] LABS: INR 1.9 (0.9-1.1); PROTHROMBIN TIME (PATIENT) 20.9 SECONDS (9.0-12.0)
== END | disposition home or self-care (01) ==
LOC: C.LABVPSUA 09:47
PROVIDERS: ATTEND Internal Medicine Critical Care Medicine
DX: I48.91 Unspecified atrial fibrillation (principal)

== ENCOUNTER → 2017-05-23 | Outpatient (CLI) | payer OTHER, BC ==
[2017-05-23 10:05] LABS: BASO % 0.6 %; BASO ABS # 0.05 K/uL (0-0.2); COMPLETE YES; EOS % 3.3 %; HEMATOCRIT 32.8 % (42-52); IG% 0.2 %; LYMPH % 14.9 %; LYMPH ABS # 1.26 K/uL (1.2-3.4); MEAN CELL VOLUME 82.8 fL (80-100); MEAN PLATELET VOLUME 9.9 fL (7.4-10.4); MONO % 9.2 %; NEUT % 71.8 %; PLATELET COUNT 187 K/uL (130-400); RED BLOOD COUNT 3.96 M/uL (4.7-6.1); WHITE BLOOD COUNT 8.48 K/uL (4.8-10.8)
[2017-05-23 10:14] LABS: BLOOD UREA NITROGEN 26 mg/dl (7-18); BUN/CREATININE RATIO 18.3 (10-20); CALCIUM 8.9 mg/dl (8.5-10.1); CARBON DIOXIDE 26 mmol/L (21-32); CHLORIDE 106 mmol/L (98-107); GLUCOSE 80 mg/dl (70-99); POTASSIUM 3.2 mmol/L (3.5-5.1); SODIUM 141 mmol/L (136-145)
[2017-05-23 10:18] LABS: INR 2.4 (0.9-1.1); PROTHROMBIN TIME (PATIENT) 26.8 SECONDS (9.0-12.0)
== END ==
LOC: C.LABVPSUA 09:27
PROVIDERS: ATTEND Internal Medicine Critical Care Medicine
DX: I34.0 Nonrheumatic mitral (valve) insufficiency (principal); I48.91 Unspecified atrial fibrillation; N18.3 Chronic kidney disease, stage 3 (moderate)

== ENCOUNTER → 2017-05-23 | Outpatient (CLI) | payer OTHER, BC | END | disposition home or self-care (01) | LOC: C.LABVPSUA 19:30 | PROVIDERS: ATTEND Internal Medicine Critical Care Medicine | DX: Z01.89 Encounter for other specified special examinations (principal) ==

== ENCOUNTER → 2017-05-29 | Outpatient (CLI) | payer OTHER, BC ==
[2017-05-29 09:50] LABS: INR 2.4 (0.9-1.1); PROTHROMBIN TIME (PATIENT) 26.1 SECONDS (9.0-12.0)
== END ==
LOC: C.LABVPSUA 09:17
PROVIDERS: ATTEND Internal Medicine Critical Care Medicine
DX: I48.91 Unspecified atrial fibrillation (principal)

== ENCOUNTER → 2017-06-17 | Outpatient (CLI) | payer OTHER, BC ==
[2017-06-17 11:49] LABS: INR 2.1 (0.9-1.1); PROTHROMBIN TIME (PATIENT) 22.7 SECONDS (9.0-12.0)
== END | disposition home or self-care (01) ==
LOC: C.LABVPSUA 10:36
PROVIDERS: ATTEND Internal Medicine Critical Care Medicine
DX: I48.91 Unspecified atrial fibrillation (principal)

== ENCOUNTER → 2017-07-22 | Outpatient (CLI) | payer OTHER, BC ==
[2017-07-22 09:42] LABS: PROTHROMBIN TIME (PATIENT) 21.6 SECONDS (9.0-12.0)
== END ==
LOC: C.LABVPSUA 09:13
PROVIDERS: ATTEND Internal Medicine Critical Care Medicine
DX: I48.91 Unspecified atrial fibrillation (principal)

== ENCOUNTER → 2017-08-19 | Outpatient (CLI) | payer OTHER, BC ==
[2017-08-19 10:30] LABS: INR 1.8 (0.9-1.1); PROTHROMBIN TIME (PATIENT) 19.5 SECONDS (9.0-12.0)
== END | disposition home or self-care (01) ==
LOC: C.LABVPSUA 10:03
PROVIDERS: ATTEND Internal Medicine Critical Care Medicine
DX: I48.91 Unspecified atrial fibrillation (principal)

== ENCOUNTER → 2017-08-26 | Outpatient (CLI) | payer OTHER, BC ==
[2017-08-26 09:14] LABS: INR 1.7 (0.9-1.1); PROTHROMBIN TIME (PATIENT) 18.3 SECONDS (9.0-12.0)
== END | disposition home or self-care (01) ==
LOC: C.LABVPSUA 08:53
PROVIDERS: ATTEND Internal Medicine Critical Care Medicine
DX: I48.91 Unspecified atrial fibrillation (principal)

== ENCOUNTER → 2017-09-02 | Outpatient (CLI) | payer OTHER, BC ==
[2017-09-02 08:59] LABS: INR 2.5 (0.9-1.1); PROTHROMBIN TIME (PATIENT) 28.2 SECONDS (9.0-12.0)
== END | disposition home or self-care (01) ==
LOC: C.LABVPSUW 08:40
PROVIDERS: ATTEND Internal Medicine Critical Care Medicine
DX: I48.91 Unspecified atrial fibrillation (principal)

== ENCOUNTER → 2017-09-30 | Outpatient (CLI) | payer OTHER, BC ==
[2017-09-30 10:06] LABS: INR 2.7 (0.9-1.1); PROTHROMBIN TIME (PATIENT) 29.7 SECONDS (9.0-12.0)
== END | disposition home or self-care (01) ==
LOC: C.LABVPSUA 09:38
PROVIDERS: ATTEND Internal Medicine Critical Care Medicine
DX: I48.91 Unspecified atrial fibrillation (principal)

== ENCOUNTER → 2017-10-14 | Outpatient (CLI) | payer OTHER, BC ==
[2017-10-14 10:23] LABS: INR 3.7 (0.9-1.1)
== END | disposition home or self-care (01) ==
LOC: C.LABVPSUA 09:24
PROVIDERS: ATTEND Internal Medicine Critical Care Medicine
DX: I48.91 Unspecified atrial fibrillation (principal)

== ENCOUNTER → 2017-10-21 | Outpatient (CLI) | payer OTHER, BC ==
[2017-10-21 10:18] LABS: INR 2.3 (0.9-1.1); PROTHROMBIN TIME (PATIENT) 24.1 SECONDS (9.0-12.0)
== END | disposition home or self-care (01) ==
LOC: C.LABVPSUA 09:55
PROVIDERS: ATTEND Internal Medicine Critical Care Medicine
DX: I48.91 Unspecified atrial fibrillation (principal)

== ENCOUNTER → 2017-11-05 | Outpatient (CLI) | payer OTHER, BC ==
[2017-11-05 10:12] LABS: INR 2.6 (0.9-1.1); PROTHROMBIN TIME (PATIENT) 26.5 SECONDS (9.0-12.0)
== END | disposition home or self-care (01) ==
LOC: C.LABVPSUA 09:18
PROVIDERS: ATTEND Internal Medicine Critical Care Medicine
DX: I48.91 Unspecified atrial fibrillation (principal)

== ENCOUNTER → 2017-11-19 | Outpatient (CLI) | payer OTHER, BC ==
[~2017-11-19] MED LIST changes: -HYT1 PO; +SPIR25TA6 PO; -SPR25 PO; +TERA1CAP38 PO
[2017-11-19 09:34] LABS: INR 2.4 (0.9-1.1)
== END | disposition home or self-care (01) ==
LOC: C.LABVPSUA 08:47
PROVIDERS: ATTEND Internal Medicine Critical Care Medicine
DX: I48.91 Unspecified atrial fibrillation (principal)

== ENCOUNTER → 2017-12-04 | Outpatient (CLI) | payer OTHER, BC ==
[~2017-12-04] MED LIST changes: +HYT1 PO; -SPIR25TA6 PO; +SPR25 PO; -TERA1CAP38 PO
[2017-12-04 09:41] LABS: INR 2.3 (0.9-1.1)
== END | disposition home or self-care (01) ==
LOC: C.LABVPSUA 09:02
PROVIDERS: ATTEND Internal Medicine Critical Care Medicine
DX: I48.91 Unspecified atrial fibrillation (principal)

== ENCOUNTER → 2018-01-01 | Outpatient (CLI) | payer OTHER, BC ==
[2018-01-01 10:10] LABS: INR 2.3 (0.9-1.1)
== END | disposition home or self-care (01) ==
LOC: C.LABVPSUA 09:45
PROVIDERS: ATTEND Internal Medicine Critical Care Medicine
DX: I48.0 Paroxysmal atrial fibrillation (principal)

== ENCOUNTER → 2018-01-29 | Outpatient (CLI) | payer OTHER, BC ==
[2018-01-29 09:26] LABS: INR 2.2 (0.9-1.1)
== END | disposition home or self-care (01) ==
LOC: C.LABVPSUA 09:05
PROVIDERS: ATTEND Internal Medicine Critical Care Medicine
DX: I48.0 Paroxysmal atrial fibrillation (principal)

== ENCOUNTER → 2018-02-26 | Outpatient (CLI) | payer OTHER, BC ==
[2018-02-26 11:56] LABS: INR 2.5 (0.9-1.1)
== END | disposition home or self-care (01) ==
LOC: C.LABVPSUA 11:29
PROVIDERS: ATTEND Internal Medicine Critical Care Medicine
DX: I48.91 Unspecified atrial fibrillation (principal)

== ENCOUNTER → 2018-03-26 | Outpatient (CLI) | payer OTHER, BC ==
[2018-03-26 10:10] LABS: INR 2.3 (0.9-1.1)
== END | disposition home or self-care (01) ==
LOC: C.LABVPSUA 09:44
PROVIDERS: ATTEND Internal Medicine Critical Care Medicine
DX: I48.91 Unspecified atrial fibrillation (principal)

== ENCOUNTER → 2018-06-04 | Outpatient (CLI) | payer OTHER, BC ==
[~2018-06-04] MED LIST changes: -HYT1 PO; +SPIR25TA6 PO; -SPR25 PO; +TERA1CAP38 PO
[2018-06-04 08:46] LABS: INR 2.2 (0.9-1.1)
== END | disposition home or self-care (01) ==
LOC: C.LABVPSUA 08:04
PROVIDERS: ATTEND Internal Medicine Critical Care Medicine
DX: I48.91 Unspecified atrial fibrillation (principal)

== ENCOUNTER → 2018-06-18 | Outpatient (CLI) | payer OTHER, BC ==
[2018-06-18 10:11] LABS: INR 1.9 (0.9-1.1)
== END | disposition home or self-care (01) ==
LOC: C.LABVPSUA 09:40
PROVIDERS: ATTEND Internal Medicine Critical Care Medicine
DX: I48.91 Unspecified atrial fibrillation (principal)

== ENCOUNTER → 2018-07-02 | Outpatient (CLI) | payer OTHER, BC ==
[2018-07-02 09:46] LABS: INR 1.9 (0.9-1.1)
== END ==
LOC: C.LABVPSUA 09:14
PROVIDERS: ATTEND Internal Medicine Critical Care Medicine
DX: I48.91 Unspecified atrial fibrillation (principal)